=== PATIENT | male | born 1970 | race Caucasian/White ===

== ENCOUNTER 2016-08-31 17:33 | Inpatient (IN) | payer MEDICAID, OTHER ==
[2016-08-31 18:32] LABS: Hematocrit 46 % (42-52); Hemoglobin 15.4 g/dl (14.0-18.0); Mean Corpuscular HGB Conc 34 g/dl (31-36); Mean Corpuscular Hemoglobin 35 pg (27-31); Mean Corpuscular Volume 103 fL (80-94); Mean Platelet Volume 8 um3 (7.4-10.4); Red Blood Count 4.45 10^6/ul (4.0-5.4); Red Cell Distribution Width 13 % (10.5-15); White Blood Count 8.6 10^3/ul (3.5-10.8)
[2016-08-31 18:41] LABS: Add Diff/Slide Review? Slide Review Added; Comments Flag Yes
[2016-08-31 18:46] LABS: ALT 94 U/L (7-52); AST 90 U/L (13-39); Alkaline Phosphatase 51 U/L (34-104); Anion Gap 7 mmol/L (2-11); BUN/Creatinine Ratio 14.5 (8-20); Blood Urea Nitrogen 10 mg/dL (6-24); CO2 Carbon Dioxide 23 mmol/L (22-32); Calcium 8.8 mg/dL (8.6-10.3); Chloride 101 mmol/L (101-111); EGFR African American 157.4 (>60); EGFR Non-African American 122.4 (>60); Globulin 3.1 g/dL (2-4); Glucose 338 mg/dL (70-100); Sodium 131 mmol/L (133-145); Total Protein 7.1 g/dL (6.4-8.9)
[2016-08-31 18:56] LABS: Acetaminophen < 15 mcg/mL; Alcohol < 10 mg/dL (<10); Salicylate < 2.50 mg/dL (<30)
[2016-08-31 19:04] LABS: TSH (Thyroid Stimulating Horm) 4.94 mcIU/mL (0.34-5.60)
[2016-08-31 19:09] LABS: Add Path Review? YES; Eosinophils % 3 % (0-6); Immature Granulocytes 1 % (0-9); Neutrophil % 66 % (38-83); RBC Morphology Normal (Normal); Reactive Lymph % 2 % (0-6)
[2016-08-31] MEDS ORDERED: metFORMIN* 500 MG TAB PO ONE (19:24)
[2016-08-31 19:43] LABS: Urine Bilirubin Negative (Negative); Urine Glucose 3+(>=500 mg/dL) (Negative); Urine Nitrite Negative (Negative)
--- NOTE | 2016-08-31 20:56 | ED ---
I, Oh,Soohtommy, scribed for Michael Hudson MD on 08/31/16 at 1835 . Psychiatric Complaint - HPI Summary HPI Summary: This 46 y/o male presents to ED for acute on chronic depression and SI with plan involving "thick blade" since today. Pt states he has been noncompliant to all his medications since 2 weeks ago. Positive sleep disturbance, appetite change, and EtOH use 2 days ago. PMHx does include known depression, DM, OA, HLD , and schizoaffective disorder. Positive hx of prior psych admission due to SI. 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 He is currently unemployed and living alone. FHx is positive to EtOH dependence to biological parents. - History Of Current Complaint Chief Complaint: EDMentalHealth Time Seen by Provider: 08/31/16 18:06 Hx Obtained From: Patient, Medical Records Onset/Duration: Sudden Onset Timing: Constant Severity Initially: Moderate Severity Currently: Moderate Character: Depressed Aggravating Factor(s): Nothing Alleviating Factor(s): Nothing Associated Signs And Symptoms: Positive: Sleep Disturbance, Appetite Change Has Suicidal: Reports: Thoughts, With A Plan - involving "thick blade" - Allergies/Home Medications Allergies/Adverse Reactions: Allergies Allergy/AdvReac Type Severity Reaction Status Date / Time No Known Allergies Allergy Verified 07/26/15 13:50 PMH/Surg Hx/FS Hx/Imm Hx Endocrine/Hematology History: Reports: Hx Diabetes - takes Metformin, but he has not been taking it. , Hx Thyroid Disease - hypothyroidism, but he is not taking his medications. Denies: Hx Anticoagulant Therapy Cardiovascular History: Reports: Hx Hypertension - He states that he is not taking his hypertension medication. Denies: Hx Congestive Heart Failure, Hx Deep Vein Thrombosis, Hx Myocardial Infarction, Hx Pacemaker/ICD Respiratory History: Reports: Hx Asthma - He used inhalers when he had bronchitis. , Hx Sleep Apnea, Other Respiratory Problems/Disorders - Bronchitis in Mar 2015 Denies: Hx Chronic Obstructive Pulmonary Disease (COPD), Hx Lung Cancer, Hx Pneumonia, Hx Pulmonary Embolism GI History: Denies: Hx Gall Bladder Disease, Hx Gastrointestinal Bleed, Hx Ulcer, Hx Urosepsis History: Denies: Hx Kidney Stones, Hx Renal Disease Musculoskeletal History: Reports: Hx Arthritis - Active in knee, Other Musculoskeletal History - bilateral knee pain Sensory History: Reports: Hx Contacts or Glasses Opthamlomology History: Reports: Hx Contacts or Glasses Neurological History: Denies: Hx Dementia, Hx Migraine, Hx Seizures, Hx Transient Ischemic Attacks (TIA) Psychiatric History: Reports: Hx Anxiety, Hx Depression, Hx Inpatient Treatment , Hx Community Mental Health [facility] - [facility], Hx of Violent Episodes Against Others, Hx Substance Abuse, Other Psychiatric Issues/Disorders - schizoaffective disorder Denies: Hx Attention Deficit Hyperactivity Disorder, Hx Eating Disorder, Hx Panic Disorder, Hx Post Traumatic Stress Disorder, Hx Schizophrenia, Hx Bipolar Disorder, Hx Suicide Attempt - Surgical History Surgery Procedure, Year, and Place: fistula removed at [facility] in 2006 Hx Anesthesia Reactions: No Infectious Disease History: No Infectious Disease History: Denies: Hx Clostridium Difficile, Hx Hepatitis, Hx Human Immunodeficiency Virus (HIV), Hx of Known/Suspected MRSA, Hx Shingles, Hx Tuberculosis, Hx Known/ Suspected VRE, Hx Known/Suspected VRSA, History Other Infectious Disease, Traveled Outside the [place] in Last 30 Days - Family History Known Family History: Positive: Other - Positive EtOH dependence to biological parents - Social History Alcohol Use: Occasionally Alcohol Amount: 350 ml of vodka - states he quit Hx Substance Use: Yes Substance Use Type: Reports: Marijuana Substance Use Comment - Amount & Last Used: Occasionally- 10 days ag = states no more Hx Tobacco Use: Yes Smoking Status (MU): Former Smoker Type: Cigarettes, Cigars Amount Used/How Often: quit Length of Time of Smoking/Using Tobacco: 1/2 PPD Have You Smoked in the Last Year: Yes Review of Systems Negative: Fever Positive: Depressed, Other - Positive SI with plan involving "thick blade" All Other Systems Reviewed And Are Negative: Yes Physical Exam - Summary Physical Exam Summary: The patient is well-nourished in no acute distress and in no acute pain. The skin is warm and dry and skin color reflects adequate perfusion. HEENT: The head is normocephalic and atraumatic. The pupils are equal and reactive. The conjunctivae are clear and without drainage. Nares are patent and without drainage. Neck is supple with full range of motion and non-tender. There are no carotid bruits. There is no neck vein distension. Respiratory: Chest is non-tender. Lungs are clear to auscultation and breath sounds are symmetrical and equal. Cardiovascular: Heart is regular rate and rhythm. There is no murmur or rub auscultated. There is no peripheral edema and pulses are symmetrical and equal. Abdomen: The abdomen is obese. There are normal bowel sounds heard in all four quadrants and there is no organomegaly palpated. Musculoskeletal: There is no back pain noted. Extremities are non-tender with full range of motion. There is good capillary refill. There is no peripheral edema or calf tenderness elicited. Neurological: Patient is alert and oriented to person, place and time. The patient has symmetrical motor strength in all four extremities. Cranial nerves are grossly intact. Deep tendon reflexes are symmetrical and equal in all four extremities. Psychiatric: The patient has an appropriate affect and does not exhibit any anxiety or depression. Triage Information Reviewed: Yes Vital Signs On Initial Exam: Initial Vitals Temp Pulse Resp BP Pulse Ox 97.9 F 86 20 144/76 98 08/31/16 17:41 08/31/16 17:41 08/31/16 17:41 08/31/16 17:41 08/31/16 17:41 Vital Signs Reviewed: Yes Diagnostics - Vital Signs Vital Signs Temp Pulse Resp BP Pulse Ox 08/31/16 17:41 97.9 F 86 20 144/76 98 - Laboratory Lab Results: Lab Results 08/31/16 08/31/16 08/31/16 Range/Units 18:24 18:24 19:30 WBC 8.6 (3.5-10.8) 10^3/ul RBC 4.45 (4.0-5.4) 10^6/ul Hgb 15.4 (14.0-18.0) g/dl Hct 46 (42-52) % MCV 103 H (80-94) fL MCH 35 H (27-31) pg MCHC 34 (31-36) g/dl RDW 13 (10.5-15) % Plt Count 223 (150-450) 10^3/ul MPV 8 (7.4-10.4) um3 Immature Gran % (Auto) 1 (0-9) % Neut % (Auto) 71.5 (38-83) % Lymph % (Auto) 8.6 L (25-47) % [place] % (Auto) 5.2 (1-9) % Eos % (Auto) 2.6 (0-6) % Baso % (Auto) 12.1 H (0-2) % Absolute Neuts (auto) 6.2 (1.5-7.7) 10^3/ul Absolute Lymphs (auto) 0.7 L (1.0-4.8) 10^3/ul Absolute Monos (auto) 0.4 (0-0.8) 10^3/ul Absolute Eos (auto) 0.2 (0-0.6) 10^3/ul Absolute Basos (auto) 1.0 H (0-0.2) 10^3/ul Absolute Nucleated RBC 0 10^3/ul Neutrophils % 66 (38-83) % Band Neutrophils % 1 (0-8) % Lymphocytes % 23 L (25-47) % Reactive Lymphs % 2 (0-6) % Monocytes % 4 (0-13) % Eosinophils % 3 (0-6) % Basophils % 1 (0-2) % Nucleated RBC % 0 Normal RBC Morphology Normal (Normal) Hem Pathologist Commnt Pending Sodium 131 L (133-145) mmol/L Potassium 4.0 (3.5-5.0) mmol/L Chloride 101 (101-111) mmol/L Carbon Dioxide 23 (22-32) mmol/L Anion Gap 7 (2-11) mmol/L BUN 10 (6-24) mg/dL Creatinine 0.69 (0.67-1.17) mg/dL Est GFR ( Amer) 157.4 (>60) Est GFR (Non-Af Amer) 122.4 (>60) BUN/Creatinine Ratio 14.5 (8-20) Glucose 338 H (70-100) mg/dL Calcium 8.8 (8.6-10.3) mg/dL Total Bilirubin 1.30 H (0.2-1.0) mg/dL AST 90 H (13-39) U/L ALT 94 H (7-52) U/L Alkaline Phosphatase 51 (34-104) U/L Total Protein 7.1 (6.4-8.9) g/dL Albumin 4.0 (3.2-5.2) g/dL Globulin 3.1 (2-4) g/dL Albumin/Globulin Ratio 1.3 (1-3) TSH 4.94 (0.34-5.60) mcIU/mL Urine Color Yellow Urine Appearance Clear Urine pH 5.0 (5-9) Ur Specific [place] 1.037 H (1.010-1.030) Urine Protein Negative (Negative) Urine Ketones Trace H (Negative) Urine Blood Negative (Negative) Urine Nitrate Negative (Negative) Urine Bilirubin Negative (Negative) Urine Urobilinogen Negative (Negative) Ur Leukocyte Esterase Negative (Negative) Urine Glucose 3+(>=500 mg/dl) H (Negative) Salicylates < 2.50 (<30) mg/dL Acetaminophen < 15 mcg/mL Serum Alcohol < 10 (<10) mg/dL Result Diagrams: 08/31/16 18:24 08/31/16 18:24 Lab Statement: Any lab studies that have been ordered have been reviewed, and results considered in the medical decision making process. Course/Dx - Course Assessment/Plan: This 46 y/o male presents to ED for acute on chronic depression and SI with plan. Pt reports his plan involves "thick knife". He also reports that he has not been taking his metformin for last 2 weeks. Metformin is given to symptomatically control his elevated blood glucose. Pt is medically cleared for mental health evaluation. Pt is evaluated by [facility] and is accepted for voluntary admission, with paperwork signed by Dr. Hudson. - Differential Dx/Clinical Impression Differential Diagnosis/HQI/PQRI: Positive: Depression, Suicidal Ideation, Other - diabetes mellitus type II, non-compliance Provider Diagnosis: Depression, Suicidal ideation - Physician Notifications Patient Is Medically Stable For: Psych Evaluation - at 1924 PM. Pt reports that he has not been taking his metformin for last 2 weeks. Metformin is given to symptomatically control his elevated blood glucose. Discharge - Discharge Plan Condition: Stable Disposition: PSYCHIATRIC FACILITY[place] [place] Referrals: Margarita Hreman MD [Primary Care Provider] - The documentation as recorded by the Malik villatoro Soohyun accurately reflects the service I personally performed and the decisions made by , Michael Hudson MD.
[2016-08-31] MEDS ORDERED: chlorproMAZINE TAB* 50 MG PO ONE (22:00)
[2016-08-31] MEDS ORDERED: diPHENhydraMINE PO* 50 MG PO ONE (22:00)
[2016-09-01] MEDS ORDERED: Acetaminophen TAB* 325 MG PO PRN (00:20)
[2016-09-01] MEDS ORDERED: Al Hydrox/Mg Hydrox/Simet LIQ* 30 ML UDC PO PRN (00:20)
[2016-09-01] MEDS: Vitamin THERAPEUTIC TAB PO SCH ×2 (09:43→16:04)
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
[2016-09-01] MEDS: Atorvastatin* 10 MG TAB PO SCH (16:00)
[2016-09-01] MEDS: metFORMIN* 500 MG TAB PO SCH (16:00)
[2016-09-01] MEDS: Sertraline* 100 MG TAB PO SCH (16:00)
[2016-09-01] MEDS: ARIPiprazole TAB* 5 MG PO SCH (20:16)
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
[2016-09-02] MEDS: Vitamin THERAPEUTIC TAB PO SCH (07:51)
[2016-09-02] MEDS: metFORMIN* 500 MG TAB PO SCH ×2 (07:51→16:50)
[2016-09-02] MEDS: Sertraline* 100 MG TAB PO SCH (07:52)
[2016-09-02] MEDS: Levothyroxine TAB* 25 MCG TAB PO SCH (07:52)
[2016-09-02] MEDS: Lisinopril TAB* 10 MG PO SCH (07:52)
[2016-09-02 07:53] LABS: HDL Cholesterol 36.6 mg/dL
--- NOTE | 2016-09-02 12:50 | PN ---
Subjective - Subjective Subjective: Niall endorses restful sleep last evening, and improving mood and level of energy today, he complains of stomachaches after restarting prescribed medications. He perseveres about wanting to remain admitted until he feels stable. He denies SI/HI or A/VH or delusions. Labs were consistent with previous non-adherence with prescribed medications. He requests STIs testing. He denies withdrawal symptoms from alcohol. Per staff, he is visible in the milieu and adherent to unit's routines. Objective - Appearance Appearance: Well Developed/Nourished Dysmorphic Features: No Hygiene: Normal Grooming: Well Kept - Behavior Psychomotor Activities: Normal Exhibits Abnormal Movement: No - Attitude and Relatedness Attitude and Relatedness: Needy Eye Contact: Fair - Speech Quality: Unpressured Latencies: Normal Quantity: Appropriate - Mood Patient's Decription of Mood: better - Affect Observed Affect: Constricted Affect Consistent with: Dysphoria - Thought Process Patient's Thought Process: Coherent, Goal Directed Thought Content: No Passive Wish, No Suicidal Planning, No Homicidal Ideation, No Paranoid Ideation - Sensorium Experiencing Hallucinations: No, Sensorium is Clear - Level of Consciousness Level of Consciousness: Alert Orientation: Yes Intact - Impulse Control Impulse Control: Intact - Insight and Judgement Insight and Judgement: Poor - Group Participation Particating in Group Activities: Yes - Medication Management Medication Management Adherence: Yes Assessment - Assessment Inpatient DSM-IV Dx: Alcohol deprendence; Schizoafective disorder, depressed type; Cluster B traits. Clinical Impression: 46yo male with history hospitalizations, poor adherence to outpatient psychiatric and substance abuse treatment, who was self-referred and requested voluntary inpatient psychiatric admission because of worsening mood and psychotic symptoms in the setting of relapse on alcohol and in the context of psychosocial stresses. Stabilizing in this structured setting, tolerating the restarting of his meds, denying suicidality. Plan - Plan Treatment Plan: Name: NIALL HAYES Birthdate: 1970 [id number] Continued Medication Management: Continue Outpt Medication Medications: Current Medications Acetaminophen (Tylenol Tab*) 650 mg PO Q4H PRN PRN Reason: PAIN or TEMP > 101 F Al Hydrox/Mg Hydrox/Simethicone (Maalox Plus*) 30 ml PO Q4H PRN PRN Reason: INDIGESTION Aripiprazole (Abilify Tab*) 5 mg PO BEDTIME XANDER Last Admin: 09/01/16 20:16 Dose: 5 mg Atorvastatin Calcium (Lipitor*) 10 mg PO 1700 [facility] Last Admin: 09/01/16 16:00 Dose: 10 mg Levothyroxine Sodium (Synthroid Tab*) 25 mcg PO DAILY@0600 [facility] Last Admin: 09/02/16 07:52 Dose: 25 mcg Lisinopril (Prinivil Tab*) 10 mg PO DAILY [facility] Last Admin: 09/02/16 07:52 Dose: 10 mg Metformin HCl (Glucophage*) 500 mg PO 0800,1700 [facility] Last Admin: 09/02/16 07:51 Dose: 500 mg Multivitamins (Theragran Tab*) 1 tab PO DAILY [facility] Last Admin: 09/02/16 07:51 Dose: 1 tab Sertraline HCl (Zoloft*) 100 mg PO DAILY [facility] Last Admin: 09/02/16 07:52 Dose: 100 mg - Discharge Plan Discharge Plan: Outpatient Follow Up Outpatient Program: [facility]
--- NOTE | 2016-09-02 13:53 | PN ---
M[facility]: Group Therapy Note - Service Type Service Type: [id number] Group Psychotherapy - Cognitive Behavioral Group Therapy ( CBT):Patient was attentive and participatory in CBT programming this morning, and remained in good behavioral control. Patient expressed positive insights regarding relevant treatment interventions and goals. Sheng spoke at length about his goal of losing weight, and requested a consultation with the nutrition department. He presented with good affect and interacted well with staff and peers.
[2016-09-02] MEDS: Atorvastatin* 10 MG TAB PO SCH (16:50)
[2016-09-02] MEDS: ARIPiprazole TAB* 5 MG PO SCH (20:31)
[2016-09-03] MEDS: Levothyroxine TAB* 25 MCG TAB PO SCH (06:05)
[2016-09-03] MEDS: Vitamin THERAPEUTIC TAB PO SCH (09:29)
[2016-09-03] MEDS: Lisinopril TAB* 10 MG PO SCH (09:29)
[2016-09-03] MEDS: Sertraline* 100 MG TAB PO SCH (09:29)
[2016-09-03] MEDS: metFORMIN* 500 MG TAB PO SCH ×2 (09:29→16:31)
[2016-09-03 10:48] LABS: Syphilis Index < 0.1 Index
--- NOTE | 2016-09-03 13:15 | PN ---
Subjective - Subjective Subjective: He endorses sustained improvement in mood despite poor sleep. He denies suicidal ideation and he contracts for safety. He denies side effects from newly restarted meds or urges for sib. He asserts having provide a urine simple earlier today for DS3 and STI testing. He is interested in triailing Trazodone for sleep after hearing of the indications, risks, benefits and alternatives. Per staff, he remains adherent to unit's routines. He tolerated my telling him that we are tentatively looking for a Thursday discharge as it would be difficult to continue justify this level of care past that. Objective - Appearance Appearance: Healthy Appearing Dysmorphic Features: No Hygiene: Normal Grooming: Well Kept - Behavior Motor Skills: Fine Motor Skills: Normal, Gross Motor Skills: Normal, Gait: Normal Psychomotor Activities: Normal Exhibits Abnormal Movement: No - Attitude and Relatedness Attitude and Relatedness: Cooperative Eye Contact: Fair - Speech Quality: Unpressured Latencies: Normal Quantity: Appropriate - Mood Patient's Decription of Mood: "Okay" - Affect Observed Affect: Fair Affect Consistent with: Euthymia - Thought Process Patient's Thought Process: Coherent, Goal Directed Thought Content: No Passive Wish, No Suicidal Planning, No Homicidal Ideation, No Paranoid Ideation - Sensorium Delusions: No Experiencing Hallucinations: No, Sensorium is Clear - Level of Consciousness Level of Consciousness: Alert Orientation: Yes Intact - Lab Results Lab Results: Laboratory Tests 09/01/16 09/02/16 09/02/16 18:10 06:37 06:37 POC Glucose (mg/dL) Hemoglobin A1c 6.6 H Triglycerides 113 Cholesterol 191 LDL Cholesterol 132 HDL Cholesterol 36.6 Syphilis IgG Antibody Nonreactive 09/02/16 07:40 POC Glucose (mg/dL) 168 H Hemoglobin A1c Triglycerides Cholesterol LDL Cholesterol HDL Cholesterol Syphilis IgG Antibody Assessment - Assessment Inpatient DSM-IV Dx: Alcohol deprendence; Schizoafective disorder, depressed type; Cluster B traits. Clinical Impression: 46yo male with history hospitalizations, poor adherence to outpatient psychiatric and substance abuse treatment, who was self-referred and requested voluntary inpatient psychiatric admission because of worsening mood and psychotic symptoms in the setting of relapse on alcohol and in the context of psychosocial stresses. Stabilizing in this structured setting, tolerating the restarting of his meds, denying suicidality. Plan - Treatment Plan Medications: Current Medications Acetaminophen (Tylenol Tab*) 650 mg PO Q4H PRN PRN Reason: PAIN or TEMP > 101 F Al Hydrox/Mg Hydrox/Simethicone (Maalox Plus*) 30 ml PO Q4H PRN PRN Reason: INDIGESTION Aripiprazole (Abilify Tab*) 5 mg PO BEDTIME [facility] Last Admin: 09/02/16 20:31 Dose: 5 mg Atorvastatin Calcium (Lipitor*) 10 mg PO 1700 [facility] Last Admin: 09/02/16 16:50 Dose: 10 mg Levothyroxine Sodium (Synthroid Tab*) 25 mcg PO DAILY@0600 [facility] Last Admin: 09/03/16 06:05 Dose: 25 mcg Lisinopril (Prinivil Tab*) 10 mg PO DAILY [facility] Last Admin: 09/03/16 09:29 Dose: 10 mg Metformin HCl (Glucophage*) 500 mg PO 0800,1700 [facility] Last Admin: 09/03/16 09:29 Dose: 500 mg Multivitamins (Theragran Tab*) 1 tab PO DAILY [facility] Last Admin: 09/03/16 09:29 Dose: 1 tab Sertraline HCl (Zoloft*) 100 mg PO DAILY [facility] Last Admin: 09/03/16 09:29 Dose: 100 mg
--- NOTE | 2016-09-03 13:18 | PN ---
Subjective - Subjective Subjective: He endorses sustained improvement in mood despite poor sleep. He denies suicidal ideation and he contracts for safety. He denies side effects from newly restarted meds or urges for sib. He asserts having provide a urine simple earlier today for DS3 and STI testing. He is interested in triailing Trazodone for sleep after hearing of the indications, risks, benefits and alternatives. Per staff, he remains adherent to unit's routines. He tolerated my telling him that we are tentatively looking for a Thursday discharge as it would be difficult to continue justify this level of care past that. Objective - Appearance Appearance: Obese Dysmorphic Features: No Hygiene: Normal Grooming: Well Kept - Behavior Psychomotor Activities: Normal Exhibits Abnormal Movement: No - Attitude and Relatedness Attitude and Relatedness: Cooperative Eye Contact: Fair - Speech Quality: Unpressured Latencies: Normal Quantity: Appropriate - Mood Patient's Decription of Mood: "Okay" - Affect Observed Affect: Fair Affect Consistent with: Euthymia - Thought Process Patient's Thought Process: Coherent, Goal Directed Thought Content: No Passive Wish, No Suicidal Planning, No Homicidal Ideation, No Paranoid Ideation - Sensorium Experiencing Hallucinations: No, Sensorium is Clear - Level of Consciousness Level of Consciousness: Alert Orientation: Yes Intact - Impulse Control Impulse Control: Intact - Insight and Judgement Insight and Judgement: Poor - Group Participation Particating in Group Activities: Yes - Medication Management Medication Management Adherence: Yes Assessment - Assessment Merits Inpatient Hospitalization: Consolidate Improvements, For Discharge Planning Inpatient DSM-IV Dx: Alcohol deprendence; Schizoafective disorder, depressed type; Cluster B traits. Clinical Impression: 46yo male with history hospitalizations, poor adherence to outpatient psychiatric and substance abuse treatment, who was self-referred and requested voluntary inpatient psychiatric admission because of worsening mood and psychotic symptoms in the setting of relapse on alcohol and in the context of psychosocial stresses. Stabilizing in this structured setting, tolerating the restarting of his meds, denying suicidality. Plan - Plan Treatment Plan: Name: NIALL HAYES Birthdate: 1970 [id number] Continued Medication Management: Continue Outpt Medication Medications: Current Medications Acetaminophen (Tylenol Tab*) 650 mg PO Q4H PRN PRN Reason: PAIN or TEMP > 101 F Al Hydrox/Mg Hydrox/Simethicone (Maalox Plus*) 30 ml PO Q4H PRN PRN Reason: INDIGESTION Aripiprazole (Abilify Tab*) 5 mg PO BEDTIME [facility] Last Admin: 09/02/16 20:31 Dose: 5 mg Atorvastatin Calcium (Lipitor*) 10 mg PO 1700 [facility] Last Admin: 09/02/16 16:50 Dose: 10 mg Levothyroxine Sodium (Synthroid Tab*) 25 mcg PO DAILY@0600 [facility] Last Admin: 09/03/16 06:05 Dose: 25 mcg Lisinopril (Prinivil Tab*) 10 mg PO DAILY [facility] Last Admin: 09/03/16 09:29 Dose: 10 mg Metformin HCl (Glucophage*) 500 mg PO 0800,1700 [facility] Last Admin: 09/03/16 09:29 Dose: 500 mg Multivitamins (Theragran Tab*) 1 tab PO DAILY [facility] Last Admin: 09/03/16 09:29 Dose: 1 tab Sertraline HCl (Zoloft*) 100 mg PO DAILY [facility] Last Admin: 09/03/16 09:29 Dose: 100 mg - Discharge Plan Discharge Plan: Outpatient Follow Up Outpatient Program: [facility]
--- NOTE | 2016-09-03 13:35 | PN ---
MHU: Group Therapy Note - Service Type Service Type: [id number] Group Psychotherapy - Cognitive Behavioral Group Therapy ( CBT):Patient was attentive and participatory in CBT programming this morning, and remained in good behavioral control. Patient expressed positive insights regarding relevant treatment interventions and goals.
[2016-09-03] MEDS: Atorvastatin* 10 MG TAB PO SCH (16:31)
[2016-09-03] MEDS: ARIPiprazole TAB* 5 MG PO SCH (20:44)
[2016-09-03] MEDS: traZODone TAB* 50 MG TAB PO SCH (22:16)
[2016-09-04] MEDS: Vitamin THERAPEUTIC TAB PO SCH (08:30)
[2016-09-04] MEDS: Levothyroxine TAB* 25 MCG TAB PO SCH (08:30)
[2016-09-04] MEDS: Sertraline* 100 MG TAB PO SCH (08:30)
[2016-09-04] MEDS: Lisinopril TAB* 10 MG PO SCH (08:30)
[2016-09-04] MEDS: metFORMIN* 500 MG TAB PO SCH ×2 (08:30→16:28)
--- NOTE | 2016-09-04 11:25 | PN ---
MHU: Group Therapy Note - Service Type Service Type: [id number] Group Psychotherapy - Cognitive Behavioral Group Therapy ( CBT):Patient was attentive and participatory in CBT programming this morning, and remained in good behavioral control. Patient expressed positive insights regarding relevant treatment interventions and goals. He is looking forward to discharge tomorrow, and has been able to follow through with request for nuitritional consultation.
[2016-09-04] MEDS: Atorvastatin* 10 MG TAB PO SCH (16:29)
--- NOTE | 2016-09-04 17:55 | PN ---
Subjective - Subjective Subjective: Niall is visible in the milieu, he is bright upon approach, endorses restful sleep, improving mood and level of energy, he affirms feeling safe and happy to be alive, he discusses plan to joining [employer] and to eat healthier to lose weight. He continues to decline recommendation to attend AA meetings, feels he will have the support needed through [facility] and the [facility]. He denies side effects from prescribed meds. He looks forward to discharge in AM, he is thankful for the help he is getting. We discussed his labs results (high fasting glucose, abnormal lipid panel, slightly elevated liver transaminases and negative HIV, Syphilis, Chlamydia and gonorrhea testing). Objective - Appearance Appearance: Obese - Behavior Psychomotor Activities: Normal Exhibits Abnormal Movement: No - Attitude and Relatedness Attitude and Relatedness: Cooperative Eye Contact: Good - Speech Quality: Unpressured Latencies: Normal Quantity: Appropriate - Mood Patient's Decription of Mood: better - Affect Observed Affect: Fair Affect Consistent with: Euthymia - Thought Process Patient's Thought Process: Coherent, Goal Directed Thought Content: No Passive Wish, No Suicidal Planning, No Homicidal Ideation, No Paranoid Ideation - Sensorium Experiencing Hallucinations: No, Sensorium is Clear - Level of Consciousness Level of Consciousness: Alert Orientation: Yes Intact - Impulse Control Impulse Control: Intact - Insight and Judgement Insight and Judgement: Fair - Group Participation Particating in Group Activities: Yes - Medication Management Medication Management Adherence: Yes Assessment - Assessment Merits Inpatient Hospitalization: For Discharge Planning Inpatient DSM-IV Dx: Alcohol deprendence; Schizoafective disorder, depressed type; Cluster B traits. Clinical Impression: 46yo male with history hospitalizations, poor adherence to outpatient psychiatric and substance abuse treatment, who was self-referred and requested voluntary inpatient psychiatric admission because of worsening mood and psychotic symptoms in the setting of relapse on alcohol and in the context of psychosocial stresses. Appears to be stabilizing in this structured setting, tolerating the restarting of his meds, denying suicidality. He feels reading for discharge in AM. Plan - Plan Treatment Plan: Name: NIALL HAYES Birthdate: 1970 [id number] Continued Medication Management: Continue Outpt Medication Medications: Current Medications Acetaminophen (Tylenol Tab*) 650 mg PO Q4H PRN PRN Reason: PAIN or TEMP > 101 F Al Hydrox/Mg Hydrox/Simethicone (Maalox Plus*) 30 ml PO Q4H PRN PRN Reason: INDIGESTION Aripiprazole (Abilify Tab*) 5 mg PO BEDTIME [facility] Last Admin: 09/03/16 20:44 Dose: 5 mg Atorvastatin Calcium (Lipitor*) 10 mg PO 1700 [facility] Last Admin: 09/04/16 16:29 Dose: 10 mg Levothyroxine Sodium (Synthroid Tab*) 25 mcg PO DAILY@0600 [facility] Last Admin: 09/04/16 08:30 Dose: 25 mcg Lisinopril (Prinivil Tab*) 10 mg PO DAILY [facility] Last Admin: 09/04/16 08:30 Dose: 10 mg Metformin HCl (Glucophage*) 500 mg PO 0800,1700 [facility] Last Admin: 09/04/16 16:28 Dose: 500 mg Multivitamins (Theragran Tab*) 1 tab PO DAILY [facility] Last Admin: 09/04/16 08:30 Dose: 1 tab Sertraline HCl (Zoloft*) 100 mg PO DAILY [facility] Last Admin: 09/04/16 08:30 Dose: 100 mg Trazodone HCl (Desyrel Tab*) 50 mg PO BEDTIME [facility] Last Admin: 09/03/16 22:16 Dose: 50 mg - Discharge Plan Discharge Plan: Outpatient Follow Up Outpatient Program: [facility]
[2016-09-04] MEDS: ARIPiprazole TAB* 5 MG PO SCH (21:44)
[2016-09-04] MEDS: traZODone TAB* 50 MG TAB PO SCH (21:44)
[2016-09-05 07:45] VITALS: BP 159/88
[2016-09-05] MEDS: metFORMIN* 500 MG TAB PO SCH (09:10)
[2016-09-05] MEDS: Sertraline* 100 MG TAB PO SCH (09:10)
[2016-09-05] MEDS: Lisinopril TAB* 10 MG PO SCH (09:10)
[2016-09-05] MEDS: Levothyroxine TAB* 25 MCG TAB PO SCH (09:10)
[2016-09-05] MEDS: Vitamin THERAPEUTIC TAB PO SCH (09:10)
--- NOTE | 2016-09-05 10:55 | PN ---
Subjective - Subjective Subjective: Elias maintains readiness for discharge. He affirms she feels safe and good about being alive. She denies emotional pain or unmanageable anxiety. He avidly denies having thoughts of suicide or urges to self-harm. He denies problems with medications, and says she does not see obstacles to routine care / therapy , or emergency help if needed again. Objective - Appearance Appearance: Obese Dysmorphic Features: No Hygiene: Normal Grooming: Well Kept - Behavior Motor Skills: Fine Motor Skills: Normal, Gross Motor Skills: Normal, Gait: Normal Psychomotor Activities: Normal Exhibits Abnormal Movement: No - Attitude and Relatedness Attitude and Relatedness: Cooperative Eye Contact: Fair - Speech Quality: Unpressured Latencies: Normal Quantity: Appropriate - Mood Patient's Decription of Mood: "Okay" - Affect Observed Affect: Fair Affect Consistent with: Euthymia - Thought Process Patient's Thought Process: Coherent, Goal Directed Thought Content: No Passive Wish, No Suicidal Planning, No Homicidal Ideation, No Paranoid Ideation - Sensorium Delusions: No Experiencing Hallucinations: No, Sensorium is Clear - Level of Consciousness Level of Consciousness: Alert Orientation: Yes Intact - Impulse Control Impulse Control: Intact - Insight and Judgement Insight and Judgement: Fair - Lab Results Lab Results: Laboratory Tests 09/01/16 09/02/16 09/02/16 18:10 06:37 06:37 POC Glucose (mg/dL) Hemoglobin A1c 6.6 H Triglycerides 113 Cholesterol 191 LDL Cholesterol 132 HDL Cholesterol 36.6 Syphilis IgG Antibody Nonreactive C.trachomatis (Amp Det) HIV 1&2 Antibody N.gonorrhoeae (Amp Det) 09/02/16 09/02/16 09/03/16 06:37 07:40 11:26 POC Glucose (mg/dL) 168 H Hemoglobin A1c Triglycerides Cholesterol LDL Cholesterol HDL Cholesterol Syphilis IgG Antibody C.trachomatis (Amp Det) Negative HIV 1&2 Antibody Nonreactive N.gonorrhoeae (Amp Det) Negative Assessment - Assessment Inpatient DSM-IV Dx: Alcohol deprendence; Schizoafective disorder, depressed type; Cluster B traits. Clinical Impression: 46yo male with history hospitalizations, poor adherence to outpatient psychiatric and substance abuse treatment, who was self-referred and requested voluntary inpatient psychiatric admission because of worsening mood and psychotic symptoms in the setting of relapse on alcohol and in the context of psychosocial stresses. Clear for release: 09/05/16 Elias stabilized here behaviorally and improved clinically. He was safe on checks, adherent with routines, and free of active suicidal ideation. He was well engaged in inpatient treatment and discharge processes. Medication management restarted previous trials of Sertraline and Aripiprazole mel ortiz mdications for diabetes, hypertension, hypothyroidism, obesity and hypercholesteraolemia. He requested and obtained STDs testing that were all negative. We discussed his abnormal fasting blood glucose, lipid panel and liver transaminases. He contracted to following up with his primary care provider, Dr. Margarita Herman Risk concern centers on previous non-adherence with treatment, alcohol use and suicidal behavior. Elias's profile puts him at chronic elevated risk for suicide but at this time acute risk is assessed as low - factors are is tolerable and reduced symptom burden, absence of impairment, and benign observed behavior and ideation. Relapse on alcohol or non-adherence with medical and psychiatric treatment could increase his risk again. Plan - Treatment Plan Medications: Current Medications Acetaminophen (Tylenol Tab*) 650 mg PO Q4H PRN PRN Reason: PAIN or TEMP > 101 F Al Hydrox/Mg Hydrox/Simethicone (Maalox Plus*) 30 ml PO Q4H PRN PRN Reason: INDIGESTION Aripiprazole (Abilify Tab*) 5 mg PO BEDTIME [facility] Last Admin: 09/04/16 21:44 Dose: 5 mg Atorvastatin Calcium (Lipitor*) 10 mg PO 1700 [facility] Last Admin: 09/04/16 16:29 Dose: 10 mg Levothyroxine Sodium (Synthroid Tab*) 25 mcg PO DAILY@0600 [facility] Last Admin: 09/05/16 09:10 Dose: 25 mcg Lisinopril (Prinivil Tab*) 10 mg PO DAILY [facility] Last Admin: 09/05/16 09:10 Dose: 10 mg Metformin HCl (Glucophage*) 500 mg PO 0800,1700 [facility] Last Admin: 09/05/16 09:10 Dose: 500 mg Multivitamins (Theragran Tab*) 1 tab PO DAILY [facility] Last Admin: 09/05/16 09:10 Dose: 1 tab Sertraline HCl (Zoloft*) 100 mg PO DAILY [facility] Last Admin: 09/05/16 09:10 Dose: 100 mg Trazodone HCl (Desyrel Tab*) 50 mg PO BEDTIME [facility] Last Admin: 09/04/16 21:44 Dose: 50 mg
--- NOTE | 2016-09-05 11:10 | DS ---
Subjective - Subjective Discharge Date: 09/05/16 Subjective: Elias maintains readiness for discharge. He affirms she feels safe and good about being alive. She denies emotional pain or unmanageable anxiety. He avidly denies having thoughts of suicide or urges to self-harm. He denies problems with medications, and says she does not see obstacles to routine care / therapy , or emergency help if needed again. Objective - Appearance Appearance: Obese Dysmorphic Features: No Hygiene: Normal Grooming: Well Kept - Behavior Psychomotor Activities: Normal Exhibits Abnormal Movement: No - Attitude and Relatedness Attitude and Relatedness: Cooperative Eye Contact: Fair - Speech Quality: Unpressured Latencies: Normal Quantity: Appropriate - Mood Patient's Decription of Mood: "Okay" - Affect Observed Affect: Good Affect Consistent with: Euthymia - Thought Process Patient's Thought Process: Coherent, Goal Directed Thought Content: No Passive Wish, No Suicidal Planning, No Homicidal Ideation, No Paranoid Ideation - Sensorium Experiencing Hallucinations: No, Sensorium is Clear - Level of Consciousness Level of Consciousness: Agitated Orientation: Yes Intact - Impulse Control Impulse Control: Intact - Insight and Judgement Insight and Judgement: Fair - Group Participation Particating in Group Activities: Yes Treatment Course & Assessment Clinical Course & Impression: 46yo male with history hospitalizations, poor adherence to outpatient psychiatric and substance abuse treatment, who was self-referred and requested voluntary inpatient psychiatric admission because of worsening mood and psychotic symptoms in the setting of relapse on alcohol and in the context of psychosocial stresses. Clear for release: 09/05/16 Elias stabilized here behaviorally and improved clinically. He was safe on checks, adherent with routines, and free of active suicidal ideation. He was well engaged in inpatient treatment and discharge processes. Medication management restarted previous trials of Sertraline and Aripiprazole mel ortiz mdications for diabetes, hypertension, hypothyroidism, obesity and hypercholesteraolemia. He requested and obtained STDs testing that were all negative. We discussed his abnormal fasting blood glucose, lipid panel and liver transaminases. He contracted to following up with his primary care provider, Dr. Margarita Herman Risk concern centers on previous non-adherence with treatment, alcohol use and suicidal behavior. Elias's profile puts him at chronic elevated risk for suicide but at this time acute risk is assessed as low - factors are is tolerable and reduced symptom burden, absence of impairment, and benign observed behavior and ideation. Relapse on alcohol or non-adherence with medical and psychiatric treatment could increase his risk again. Merits Inpatient Hospitalization: Yes Clear for Discharge: Adequate Clinical Respons, Acceptable Safety Profile Inpatient DSM-IV Dx: Alcohol deprendence; Schizoafective disorder, depressed type; Cluster B traits. Discharge Planning - Discharge Planning Discharge Plan: Outpatient Follow Up Outpatient Program: [facility] Recommendations for Continuing Care: Medication Management, Psychotherapy, Substance Abuse Counseling Medications: Discharge Medications Aripiprazole (Abilify Tab*) 5 mg PO BEDTIME FOR [facility]IL[facility]; Trazodone HCl (Desyrel Tab*) 50 mg PO BEDTIME FOR DEPRESSION. Discharge Planning: Prescriptions provided for discharge [X] Yes [] No Follow up care details as per social work arrangements. Patient response to discharge plan: [X] eager for discharge [] agreeable with discharge plan [] ambivalent about discharge [] disagrees with discharge today Follow-up ELIAS HAYES has been referred to the following clinics/specialists for follow-up care: [facility] [phone] You have been referred to [facility] nurse, Kinjal Neely, who will be contacting you after discharge to assist with any ongoing discharge planning needs. [facility] [address] [place] [address] You are scheduled to see Dr. Broderick for medication mgmt on , September 11 at 1:20pm.
== END 2016-09-05 10:35 | DRG 775 ==
LOC: ED 17:33 → BSU 21:26
PROVIDERS: ADMIT Psychiatry & Neurology Psychiatry; ATTEND Psychiatry & Neurology Psychiatry
DX: F10.20 Alcohol dependence, uncomplicated (principal); R45.851 Suicidal ideations; I10 Essential (primary) hypertension; E03.9 Hypothyroidism, unspecified; E78.00 Pure hypercholesterolemia, unspecified; E66.01 Morbid (severe) obesity due to excess calories; E11.9 Type 2 diabetes mellitus without complications; F25.1 Schizoaffective disorder, depressive type; J45.909 Unspecified asthma, uncomplicated; M17.9 Osteoarthritis of knee, unspecified; F12.90 Cannabis use, unspecified, uncomplicated; Z87.891 Personal history of nicotine dependence; Z91.14 Patient's other noncompliance with medication regimen; Z79.84 Long term (current) use of oral hypoglycemic drugs
CPT/HCPCS: 36415; 80053; 80061; 80320; 80329; 81003; 83036; 84443; 85025; 85060; 86592; 86703; 87491; 87591; 90853; 99222; 99231; 99238; A9270-GY; G0480

== ENCOUNTER 2017-04-24 12:29 | Inpatient (IN) | payer MEDICAID, OTHER ==
[2017-04-24] MEDS ORDERED: NS 0.9% 1000 ML* 1,000 ML IV ONE (14:26)
[2017-04-24 14:53] LABS: ABS Basophils 0.1 10^3/ul (0-0.2); ABS Eosinophils 0.2 10^3/ul (0-0.6); ABS Lymphocytes 2.4 10^3/ul (1.0-4.8); ABS Monocytes 0.5 10^3/ul (0-0.8); ABS Neutrophils 4.1 10^3/ul (1.5-7.7); ABS Nucleated RBC 0 10^3/ul; Hematocrit 43 % (42-52); Hemoglobin 15.1 g/dl (14.0-18.0); Lymphocyte % 32.9 % (25-47); Mean Corpuscular HGB Conc 36 g/dl (31-36); Mean Corpuscular Hemoglobin 35 pg (27-31); Mean Corpuscular Volume 98 fL (80-94); Mean Platelet Volume 8 um3 (7.4-10.4); Nucleated Red Blood Cells % 0.2; Platelet Count 204 10^3/ul (150-450); Red Blood Count 4.36 10^6/ul (4.0-5.4); Red Cell Distribution Width 13 % (10.5-15); White Blood Count 7.2 10^3/ul (3.5-10.8)
--- NOTE | 2017-04-24 15:12 | RAD ---
Indication: Weakness. 2 views of the chest including dual energy PA views are reviewed. Comparison is made with previous exam dated July 31, 2013. No mediastinal shift is noted. Heart is normal size and configuration. Lung ching appear clear. IMPRESSION: No active cardiopulmonary disease is noted.
[2017-04-24 15:46] LABS: EGFR Non-African American 112.4 (>60)
[2017-04-24] MEDS ORDERED: Insulin REGULAR(*) 1 UNITS UNIT IV PUSH ONE (17:15)
[2017-04-24 18:11] LABS: EGFR Non-African American 119.9 (>60)
[2017-04-24 18:21] LABS: Urine Appearance Cloudy; Urine Blood Negative (Negative); Urine Color Yellow; Urine Ketones Trace (Negative); Urine Protein Negative (Negative); Urine Urobilinogen Negative (Negative)
[2017-04-24] MEDS ORDERED: Dextrose 50% Syringe 50 ML* 25 GM/50 ML SYRINGE IV PUSH PRN (18:54)
--- NOTE | 2017-04-24 18:59 | ED ---
Jerica Lam Nilda, scribed for Ton Pena MD on 04/24/17 at 1455 . Complex/Multi-Sys Presentation - HPI Summary HPI Summary: This patient is a 47 year old M presenting to [facility] with a chief complaint of diabetic and hypertensive symptoms s/p medication noncompliance for the past 2 months. The patient rates the pain 0/10 in severity. Patient reports palpitations, SOB, CP, and dizziness yesterday. Today he states he has unwitnessed syncopal episode, increased dizziness upon awaking, fatigue, and joint pain. Patient states he stopped taking daily medications and seeing his PCP for the past 2 months due to mental health issues. Symptoms alleviated by nothing. PMHx DM, HTN, Thyroid disorder, and Sleep Apnea. - History Of Current Complaint Chief Complaint: EDDiabeticProb Time Seen by Provider: 04/24/17 14:17 Hx Obtained From: Patient Onset/Duration: Sudden Onset, Lasting Weeks Timing: Constant Location: Pain At: - joints Aggravating Factor(s): medication non-compliance Alleviating Factor(s): nothing Associated Signs And Symptoms: Positive: Other - palpitations, SOB, CP, and dizziness (yesterday). Today he states he has syncopal episode, increased dizziness, fatigue and joint pain. - Allergies/Home Medications Allergies/Adverse Reactions: Allergies Allergy/AdvReac Type Severity Reaction Status Date / Time cats Allergy Eyes Uncoded 04/24/17 12:38 Itchy/Swollen/Red/Watery Home Medications: Home Medications NK [No Home Medications Reported] 04/24/17 [History Confirmed 04/24/17] PMH/Surg Hx/FS Hx/Imm Hx Endocrine/Hematology History: Reports: Hx Diabetes, Hx Thyroid Disease Denies: Hx Anticoagulant Therapy Cardiovascular History: Reports: Hx Hypercholesterolemia, Hx Hypertension Denies: Hx Congestive Heart Failure, Hx Deep Vein Thrombosis, Hx Myocardial Infarction, Hx Pacemaker/ICD Respiratory History: Reports: Hx Asthma - He used inhalers when he had bronchitis. , Hx Sleep Apnea, Other Respiratory Problems/Disorders - Bronchitis in Mar 2015 Denies: Hx Chronic Obstructive Pulmonary Disease (COPD), Hx Lung Cancer, Hx Pneumonia, Hx Pulmonary Embolism GI History: Denies: Hx Gall Bladder Disease, Hx Gastrointestinal Bleed, Hx Ulcer, Hx Urosepsis History: Denies: Hx Kidney Stones, Hx Renal Disease Musculoskeletal History: Reports: Hx Arthritis, Other Musculoskeletal History - bilateral knee pain Sensory History: Reports: Hx Contacts or Glasses Denies: Hx Hearing Aid Opthamlomology History: Reports: Hx Contacts or Glasses Neurological History: Denies: Hx Dementia, Hx Migraine, Hx Seizures, Hx Transient Ischemic Attacks (TIA) Psychiatric History: Reports: Hx Anxiety, Hx Depression, Hx Inpatient Treatment , Hx [facility] - [facility], Hx of Violent Episodes Against Others, Hx Substance Abuse, Other Psychiatric Issues/Disorders - schizoaffective disorder Denies: Hx Attention Deficit Hyperactivity Disorder, Hx Eating Disorder, Hx Panic Disorder, Hx Post Traumatic Stress Disorder, Hx Schizophrenia, Hx Bipolar Disorder, Hx Suicide Attempt - Surgical History Surgery Procedure, Year, and Place: fistula removed at [facility] in 2006 Hx Anesthesia Reactions: No Infectious Disease History: No Infectious Disease History: Denies: Hx Clostridium Difficile, Hx Hepatitis, Hx Human Immunodeficiency Virus (HIV), Hx of Known/Suspected MRSA, Hx Shingles, Hx Tuberculosis, Hx Known/ Suspected VRE, Hx Known/Suspected VRSA, History Other Infectious Disease, Traveled Outside the [place] in Last 30 Days - Family History Known Family History: Positive: Other - Positive EtOH dependence to biological parents - Social History Alcohol Use: Rare Alcohol Amount: 350 ml of vodka - states he quit Hx Substance Use: Yes Substance Use Type: Reports: Marijuana Substance Use Comment - Amount & Last Used: Occasionally- 10 days ag = states no more Hx Tobacco Use: Yes Smoking Status (MU): Light Every Day Tobacco Smoker Type: Cigars Amount Used/How Often: States smoking "1 or 2 cigars a couple of times a week" Length of Time of Smoking/Using Tobacco: 1/2 PPD Have You Smoked in the Last Year: Yes Review of Systems Positive: Fatigue Positive: Palpitations - yesterday, Chest Pain - yesterday Positive: Shortness Of Breath - yesterday Positive: Other - joint pain Neurological: Other - dizziness Positive: Syncope All Other Systems Reviewed And Are Negative: Yes Physical Exam - Summary Physical Exam Summary: VITAL SIGNS: Reviewed. GENERAL: Patient is an obese male who is lying comfortable in the stretcher. Patient is not in any acute respiratory distress. HEAD AND FACE: No signs of trauma. No ecchymosis, hematomas or skull depressions. No sinus tenderness. EYES: PERRLA, EOMI x 2, No injected conjunctiva, no nystagmus. EARS: Hearing grossly intact. Ear canals and tympanic membranes are within normal limits. MOUTH: Oropharynx within normal limits except for dry oral mucosa. NECK: Supple, trachea is midline, no adenopathy, no JVD, no carotid bruit, no c- spine tenderness, neck with full ROM. CHEST: Symmetric, no tenderness at palpation LUNGS: Clear to auscultation bilaterally. No wheezing or crackles. CVS: Regular rate and rhythm, S1 and S2 present, no murmurs or gallops appreciated. ABDOMEN: Soft, non-tender. No signs of distention. No rebound no guarding, and no masses palpated. Bowel sounds are normal. EXTREMITIES: FROM in all major joints, no edema, no cyanosis or clubbing. NEURO: Alert and oriented x 3. No acute neurological deficits. Speech is normal and follows commands. SKIN: Dry and warm, mildly diaphoretic Triage Information Reviewed: Yes Vital Signs On Initial Exam: Initial Vitals Temp Pulse Resp BP Pulse Ox 97.5 F 74 20 152/89 92 04/24/17 12:35 04/24/17 12:35 04/24/17 12:35 04/24/17 12:35 04/24/17 12:35 Vital Signs Reviewed: Yes Diagnostics - Vital Signs Vital Signs Temp Pulse Resp BP Pulse Ox 04/24/17 12:35 97.5 F 74 20 152/89 92 - Laboratory Lab Results: Lab Results 04/24/17 04/24/17 04/24/17 Range/Units 14:33 14:33 14:33 WBC 7.2 (3.5-10.8) 10^3/ul RBC 4.36 (4.0-5.4) 10^6/ul Hgb 15.1 (14.0-18.0) g/dl Hct 43 (42-52) % MCV 98 H (80-94) fL MCH 35 H (27-31) pg MCHC 36 (31-36) g/dl RDW 13 (10.5-15) % Plt Count 204 (150-450) 10^3/ul MPV 8 (7.4-10.4) um3 Neut % (Auto) 56.6 (38-83) % Lymph % (Auto) 32.9 (25-47) % [place] % (Auto) 6.6 (0-7) % Eos % (Auto) 3.0 (0-6) % Baso % (Auto) 0.9 (0-2) % Absolute Neuts (auto) 4.1 (1.5-7.7) 10^3/ul Absolute Lymphs (auto) 2.4 (1.0-4.8) 10^3/ul Absolute Monos (auto) 0.5 (0-0.8) 10^3/ul Absolute Eos (auto) 0.2 (0-0.6) 10^3/ul Absolute Basos (auto) 0.1 (0-0.2) 10^3/ul Absolute Nucleated RBC 0 10^3/ul Nucleated RBC % 0.2 Sodium 131 L (133-145) mmol/L Potassium 4.7 (3.5-5.0) mmol/L Chloride 98 L (101-111) mmol/L Carbon Dioxide 20 L (22-32) mmol/L Anion Gap 13 H (2-11) mmol/L BUN 18 (6-24) mg/dL Creatinine 0.74 (0.67-1.17) mg/dL Est GFR ( Amer) 144.6 (>60) Est GFR (Non-Af Amer) 112.4 (>60) BUN/Creatinine Ratio 24.3 H (8-20) Glucose 273 H (70-100) mg/dL POC Glucose (mg/dL) (70-100) mg/dL Calcium 9.5 (8.6-10.3) mg/dL Total Bilirubin 1.90 H (0.2-1.0) mg/dL AST 34 (13-39) U/L ALT 54 H (7-52) U/L Alkaline Phosphatase 45 (34-104) U/L Troponin I 0.16 H* (<0.04) ng/mL C-Reactive Protein 10.34 H (< 5.00) mg/L B-Natriuretic Peptide 55 ( - 100) pg/mL Total Protein 7.4 (6.4-8.9) g/dL Albumin 4.4 (3.2-5.2) g/dL Globulin 3.0 (2-4) g/dL Albumin/Globulin Ratio 1.5 (1-3) Lipase 27 (11.0-82.0) U/L TSH Pending Urine Color Urine Appearance Urine pH (5-9) Ur Specific [place] (1.010-1.030) Urine Protein (Negative) Urine Ketones (Negative) Urine Blood (Negative) Urine Nitrate (Negative) Urine Bilirubin (Negative) Urine Urobilinogen (Negative) Ur Leukocyte Esterase (Negative) Urine WBC (Auto) (Absent) Urine RBC (Auto) (Absent) Ur Squamous Epith Cells (Absent) Urine Bacteria (Absent) Urine Glucose (Negative) Urine Ascorbic Acid 04/24/17 04/24/17 04/24/17 Range/Units 17:26 17:40 18:06 WBC (3.5-10.8) 10^3/ul RBC (4.0-5.4) 10^6/ul Hgb (14.0-18.0) g/dl Hct (42-52) % MCV (80-94) fL MCH (27-31) pg MCHC (31-36) g/dl RDW (10.5-15) % Plt Count (150-450) 10^3/ul MPV (7.4-10.4) um3 Neut % (Auto) (38-83) % Lymph % (Auto) (25-47) % [place] % (Auto) (0-7) % Eos % (Auto) (0-6) % Baso % (Auto) (0-2) % Absolute Neuts (auto) (1.5-7.7) 10^3/ul Absolute Lymphs (auto) (1.0-4.8) 10^3/ul Absolute Monos (auto) (0-0.8) 10^3/ul Absolute Eos (auto) (0-0.6) 10^3/ul Absolute Basos (auto) (0-0.2) 10^3/ul Absolute Nucleated RBC 10^3/ul Nucleated RBC % Sodium 131 L (133-145) mmol/L Potassium TNP (3.5-5.0) mmol/L Chloride 100 L (101-111) mmol/L Carbon Dioxide 22 (22-32) mmol/L Anion Gap 9 (2-11) mmol/L BUN 17 (6-24) mg/dL Creatinine 0.70 (0.67-1.17) mg/dL Est GFR ( Amer) 154.2 (>60) Est GFR (Non-Af Amer) 119.9 (>60) BUN/Creatinine Ratio 24.3 H (8-20) Glucose 211 H (70-100) mg/dL POC Glucose (mg/dL) 184 H (70-100) mg/dL Calcium 8.9 (8.6-10.3) mg/dL Total Bilirubin 1.70 H (0.2-1.0) mg/dL AST TNP (13-39) U/L ALT 51 (7-52) U/L Alkaline Phosphatase 41 (34-104) U/L Troponin I (<0.04) ng/mL C-Reactive Protein (< 5.00) mg/L B-Natriuretic Peptide ( - 100) pg/mL Total Protein 7.1 (6.4-8.9) g/dL Albumin 4.2 (3.2-5.2) g/dL Globulin 2.9 (2-4) g/dL Albumin/Globulin Ratio 1.4 (1-3) Lipase (11.0-82.0) U/L TSH Urine Color Yellow Urine Appearance Cloudy Urine pH 5.0 (5-9) Ur Specific [place] 1.030 (1.010-1.030) Urine Protein Negative (Negative) Urine Ketones Trace A (Negative) Urine Blood Negative (Negative) Urine Nitrate Negative (Negative) Urine Bilirubin Negative (Negative) Urine Urobilinogen Negative (Negative) Ur Leukocyte Esterase Negative (Negative) Urine WBC (Auto) Trace(0-5/hpf) (Absent) Urine RBC (Auto) Absent (Absent) Ur Squamous Epith Cells Present A (Absent) Urine Bacteria Absent (Absent) Urine Glucose 3+(>=500 mg/dl) A (Negative) Urine Ascorbic Acid Not Reportable Result Diagrams: 04/24/17 14:33 04/24/17 17:40 Lab Statement: Any lab studies that have been ordered have been reviewed, and results considered in the medical decision making process. - Radiology CXR Radiology Interpretation Completed By: Radiologist - CXR, per radiologist, reveals no active cardiopulmonary disease is noted. Dr. Pena has reviewed this radiology report. - EKG 1813 Cardiac Rate: Tachycardia EKG Rhythm: Sinus Tachycardia - 120 bpm EKG Interpretation: no ST elevation Re-Evaluation - Re-Evaluation First Eval Re-Evaluation Time: 18:27 Comment: Reviewed labs, imaging and plan to admit patient. Patient is agreeable to admission. Complex Multi-Symp Course/Dx Assessment/Plan: This patient is a 47 year old M presenting to [facility] with a chief complaint of diabetic and hypertensive symptoms s/p medication noncompliance for the past 2 months. The patient rates the pain 0/10 in severity. Patient reports palpitations, SOB, CP, and dizziness yesterday. Today he states he has unwitnessed syncopal episode, increased dizziness upon awaking, fatigue, and joint pain. Patient states he stopped taking daily medications and seeing his PCP for the past 2 months due to mental health issues. Symptoms alleviated by nothing. PMHx DM, HTN, Thyroid disorder, and Sleep Apnea. In the ED course an IV access was obtained. Patient was placed in a configuration management administrator. Patient was started with IV fluids. Labs without any significant abnormality except for glucose 273, anion gap 13, carbon dioxide 20. Troponin #1: 0.16. EKG shows sinus tachycardia at 120 BPM w/o ST elevations. CXR impression: No acute pathology. Head CT impression: Patient refused and Dr. Bailon agrees not to perform head CT. Patient was hydrated with IVF, and insulin for his hyperglycemia. Since patient had a syncope episode I discussed the case with Dr. Bailon who accepted the patient for admission. He is hemodynamically stable and A+O x3. - Diagnoses Provider Diagnoses: Syncopal episodes, Elevated troponin, r/o acute coronary syndrome, Hyperglycemia - Physician Notifications Discussed Care Of Patient With: Adam Bailon - Hospitalist Time Discussed With Above Provider: 18:23 Instructed by Provider To: Admit As Inpatient Discharge - Discharge Plan Condition: Stable Disposition: ADMITTED TO [facility] Referrals: Margarita Herman MD [Primary Care Provider] - The documentation as recorded by the Jerica villatoro Nilda accurately reflects the service I personally performed and the decisions made by me, Ton Pena MD.
--- NOTE | 2017-04-24 19:06 | ADMNOTE ---
Subjective Date of Service: 04/24/17 Interval History: ADMISSION HISTORY AND PHYSICAL EXAM: Allergies Allergy/AdvReac Type Severity Reaction Status Date / Time cats Allergy Eyes Uncoded 04/24/17 12:38 Itchy/Swollen/Red/Watery Home Medications Medication Instructions Recorded Confirmed Type NK [No Home Medications Reported] 04/24/17 04/24/17 History HPI: The patient states he has had dizzy spells for about 6 months, getting worse lately. He denied passing out or falling down. He was concerned today and took a bus to get to the ED. He states he last saw his PCP about 8 months ago. He states he "broke off' with his therapist at the [facility] 6-12 months ago. He has not taken any prescription meds for over 6 months. He no longer has a glucometer at home. Family History: Findings - patient is adopted and does not know his family hx Social History: Findings - Lives alone, on SSI. Quit smoking 3 months ago. Slef-described alcoholic, stopped heavy drinkg a few months ago. MOther is his SDM. 1 cortneyvern. Past Medical History: Findings - [facility] admission x 6. Anal fistula surgery. Review of Systems - Measurements Intake and Output: Intake and Output Last 24 Hours 04/22/17 04/23/17 04/24/17 04/25/17 06:59 06:59 06:59 06:59 Intake Total 1000 Balance 1000 Weight 350 lb Intake: IV Fluids 1000 - Review of Systems Constitutional Symptoms: Negative: Weight Gain, Weight Loss, Weakness, Fatigue, Fever, Night Sweats, Unexplained Falls, Other Dermatology: Positive: Normal HEENT: Positive: Normal Eyes: Positive: Normal Thyroid: Positive: Primary Hypothyroidism Pulmonary: Positive: Normal Cardiology: Positive: Other - near syncope Gastroenterology: Positive: Normal Genital - Urinary: Positive: Normal Genitourinary - Male: Negative: Prostatism, Erectile Dysfunction, Family Hx of Prostate Cancer, Other Musculoskeletal: Negative: Joint Pain, Joint Stiffness, Arthritis, Osteoporosis, Low Back Pain , Sciatica, Joint Deformities, Kyphoscoliosis, Other Hematologic/Lymphatic: Negative: Anemia, Easy Brusing, Hx Leukemia, Hx Lymphoma, Use of Anticoagulant, Use of Antiplatelet Drugs, Other Neurology: Positive: Normal Psychiatry: Positive: Other - Multiple [facility] admissions with several diagnoses. Allergic/Immunologic: Negative: Hx Anaphylaxis, Hx Angioedema, Hx Environmental, Hx Seasonal, Athsma, Hx HIV, Immunocompromise, Swollen Glands LymphNodes, Other Objective Active Medications: Dextrose (D50w Syringe 50 Ml*) 12.5 gm IV PUSH .FOR FS < 60 - SS PRN PRN Reason: FS < 60 Insulin Human Lispro (Humalog*) 0 units SUBCUT ACHS XANDER PRN Reason: Protocol Vital Signs - 8 hr 04/24/17 04/24/17 04/24/17 12:35 15:30 18:16 Temperature 97.5 F 97.7 F 97.5 F Pulse Rate 74 78 70 Respiratory 20 20 20 Rate Blood Pressure 152/89 154/92 150/90 (mmHg) O2 Sat by Pulse 92 98 97 Oximetry 04/24/17 04/24/17 18:33 18:34 Temperature Pulse Rate 78 Respiratory Rate Blood Pressure 156/68 (mmHg) O2 Sat by Pulse 94 Oximetry Oxygen Devices in Use Now: None Appearance: Alert, sl up on ED stretcher. Anxious but cooperative. Eyes: No Scleral Icterus Ears/Nose/Mouth/Throat: Clear Oropharnyx, Mucous Membranes Moist Neck: NL Appearance and Movements; NL JVP, No Thyroid Enlargement, Masses Respiratory: Symmetrical Chest Expansion and Respiratory Effort, Clear to Auscultation, Clear to Percussion Cardiovascular: NL Sounds; No Murmurs; No JVD, RRR, No Edema, - Abdominal: NL Sounds; No Tenderness; No Distention, No Hepatosplenomegaly, - - massively obese Extremities: No Clubbing, Cyanosis, - - 1+ edema BL Skin: No Rash or Ulcers, No Nodules or Sclerosis, - Neurological: Alert and Oriented x 3, NL Sensation Result Diagrams: 04/24/17 14:33 04/24/17 17:40 Additional Lab and Data: Lab Results 04/24/17 04/24/17 04/24/17 Range/Units 14:33 14:33 14:33 WBC 7.2 (3.5-10.8) 10^3/ul RBC 4.36 (4.0-5.4) 10^6/ul Hgb 15.1 (14.0-18.0) g/dl Hct 43 (42-52) % MCV 98 H (80-94) fL MCH 35 H (27-31) pg MCHC 36 (31-36) g/dl RDW 13 (10.5-15) % Plt Count 204 (150-450) 10^3/ul MPV 8 (7.4-10.4) um3 Neut % (Auto) 56.6 (38-83) % Lymph % (Auto) 32.9 (25-47) % [place] % (Auto) 6.6 (0-7) % Eos % (Auto) 3.0 (0-6) % Baso % (Auto) 0.9 (0-2) % Absolute Neuts (auto) 4.1 (1.5-7.7) 10^3/ul Absolute Lymphs (auto) 2.4 (1.0-4.8) 10^3/ul Absolute Monos (auto) 0.5 (0-0.8) 10^3/ul Absolute Eos (auto) 0.2 (0-0.6) 10^3/ul Absolute Basos (auto) 0.1 (0-0.2) 10^3/ul Absolute Nucleated RBC 0 10^3/ul Nucleated RBC % 0.2 Sodium 131 L (133-145) mmol/L Potassium 4.7 (3.5-5.0) mmol/L Chloride 98 L (101-111) mmol/L Carbon Dioxide 20 L (22-32) mmol/L Anion Gap 13 H (2-11) mmol/L BUN 18 (6-24) mg/dL Creatinine 0.74 (0.67-1.17) mg/dL Est GFR ( Amer) 144.6 (>60) Est GFR (Non-Af Amer) 112.4 (>60) BUN/Creatinine Ratio 24.3 H (8-20) Glucose 273 H (70-100) mg/dL POC Glucose (mg/dL) (70-100) mg/dL Calcium 9.5 (8.6-10.3) mg/dL Total Bilirubin 1.90 H (0.2-1.0) mg/dL AST 34 (13-39) U/L ALT 54 H (7-52) U/L Alkaline Phosphatase 45 (34-104) U/L Troponin I 0.16 H* (<0.04) ng/mL C-Reactive Protein 10.34 H (< 5.00) mg/L B-Natriuretic Peptide 55 ( - 100) pg/mL Total Protein 7.4 (6.4-8.9) g/dL Albumin 4.4 (3.2-5.2) g/dL Globulin 3.0 (2-4) g/dL Albumin/Globulin Ratio 1.5 (1-3) Lipase 27 (11.0-82.0) U/L TSH Pending Urine Color Urine Appearance Urine pH (5-9) Ur Specific [place] (1.010-1.030) Urine Protein (Negative) Urine Ketones (Negative) Urine Blood (Negative) Urine Nitrate (Negative) Urine Bilirubin (Negative) Urine Urobilinogen (Negative) Ur Leukocyte Esterase (Negative) Urine WBC (Auto) (Absent) Urine RBC (Auto) (Absent) Ur Squamous Epith Cells (Absent) Urine Bacteria (Absent) Urine Glucose (Negative) Urine Ascorbic Acid 04/24/17 04/24/17 04/24/17 Range/Units 17:26 17:40 18:06 WBC (3.5-10.8) 10^3/ul RBC (4.0-5.4) 10^6/ul Hgb (14.0-18.0) g/dl Hct (42-52) % MCV (80-94) fL MCH (27-31) pg MCHC (31-36) g/dl RDW (10.5-15) % Plt Count (150-450) 10^3/ul MPV (7.4-10.4) um3 Neut % (Auto) (38-83) % Lymph % (Auto) (25-47) % [place] % (Auto) (0-7) % Eos % (Auto) (0-6) % Baso % (Auto) (0-2) % Absolute Neuts (auto) (1.5-7.7) 10^3/ul Absolute Lymphs (auto) (1.0-4.8) 10^3/ul Absolute Monos (auto) (0-0.8) 10^3/ul Absolute Eos (auto) (0-0.6) 10^3/ul Absolute Basos (auto) (0-0.2) 10^3/ul Absolute Nucleated RBC 10^3/ul Nucleated RBC % Sodium 131 L (133-145) mmol/L Potassium TNP (3.5-5.0) mmol/L Chloride 100 L (101-111) mmol/L Carbon Dioxide 22 (22-32) mmol/L Anion Gap 9 (2-11) mmol/L BUN 17 (6-24) mg/dL Creatinine 0.70 (0.67-1.17) mg/dL Est GFR ( Amer) 154.2 (>60) Est GFR (Non-Af Amer) 119.9 (>60) BUN/Creatinine Ratio 24.3 H (8-20) Glucose 211 H (70-100) mg/dL POC Glucose (mg/dL) 184 H (70-100) mg/dL Calcium 8.9 (8.6-10.3) mg/dL Total Bilirubin 1.70 H (0.2-1.0) mg/dL AST TNP (13-39) U/L ALT 51 (7-52) U/L Alkaline Phosphatase 41 (34-104) U/L Troponin I (<0.04) ng/mL C-Reactive Protein (< 5.00) mg/L B-Natriuretic Peptide ( - 100) pg/mL Total Protein 7.1 (6.4-8.9) g/dL Albumin 4.2 (3.2-5.2) g/dL Globulin 2.9 (2-4) g/dL Albumin/Globulin Ratio 1.4 (1-3) Lipase (11.0-82.0) U/L TSH Urine Color Yellow Urine Appearance Cloudy Urine pH 5.0 (5-9) Ur Specific [place] 1.030 (1.010-1.030) Urine Protein Negative (Negative) Urine Ketones Trace A (Negative) Urine Blood Negative (Negative) Urine Nitrate Negative (Negative) Urine Bilirubin Negative (Negative) Urine Urobilinogen Negative (Negative) Ur Leukocyte Esterase Negative (Negative) Urine WBC (Auto) Trace(0-5/hpf) (Absent) Urine RBC (Auto) Absent (Absent) Ur Squamous Epith Cells Present A (Absent) Urine Bacteria Absent (Absent) Urine Glucose 3+(>=500 mg/dl) A (Negative) Urine Ascorbic Acid Not Reportable Assess/Plan/Problems-Billing Assessment: - Patient Problems (1) Elevated troponin Current Visit: Yes Status: Acute Code(s): R74.8 - ABNORMAL LEVELS OF OTHER SERUM ENZYMES SNOMED Code(s): 220969682 Comment: Uncertain clinical signigficance. Second troponin pending. Echo for 04/25. (2) Alcoholism Current Visit: Yes Status: Acute Code(s): F10.20 - ALCOHOL DEPENDENCE, UNCOMPLICATED SNOMED Code(s): 6667721 Comment: Hx noted. (3) Morbid obesity with BMI of 40.0-44.9, adult Current Visit: No Status: Chronic Code(s): E66.01 - MORBID (SEVERE) OBESITY DUE TO EXCESS CALORIES; Z68.41 - BODY MASS INDEX (BMI) 40.0-44.9, ADULT SNOMED Code(s): 999176041 Comment: BMI 42.6. (4) Hypothyroidism Current Visit: Yes Status: Acute Code(s): E03.9 - HYPOTHYROIDISM, UNSPECIFIED SNOMED Code(s): 10994328 Comment: TSH 3.78 04/24/17. Not clear if he ever had hypothyroidism, all prior TSH in our system are wnl. (5) Tachycardia Current Visit: Yes Status: Acute Code(s): R00.0 - TACHYCARDIA, UNSPECIFIED SNOMED Code(s): 2108117 Comment: Hx HTN also. Will start on metoprolol 50 mg bid 04/24 PM.
[2017-04-24] MEDS: Metoprolol Tartrate TAB* 50 mg PO SCH (20:51)
[2017-04-24] MEDS: Insulin LISPRO* 1 UNITS UNIT SUBCUT SCH (20:51)
[2017-04-24] MEDS ORDERED: Heparin DRIP 25,000 UNITS(*) 25,000 UNITS/500 ML BAG IVPB SCH (22:30)
--- NOTE | 2017-04-24 22:57 | PN ---
Progress Note - Progress Note Date of Service: 04/24/17 Note: Nursing reports AFIB on tele now that rate's slowed. ECG confirms AFLUT. [id number] -VASc score 2. Will monitor for rate control. Heparin GTT ordered.
[2017-04-24] MEDS ORDERED: Heparin VIAL(*) 5000 UNITS/ML VIAL (FIVE THOUSAND) IV SCH (23:00)
[2017-04-24] MEDS ORDERED: Heparin DRIP 25,000 UNITS(*) 25,000 UNITS/500 ML BAG IV SCH (23:15)
[2017-04-24] MEDS: Heparin VIAL(*) 5000 UNITS/ML VIAL (FIVE THOUSAND) IV SCH (23:32)
[2017-04-24 23:57] LABS: ABS Basophils 0.1 10^3/ul (0-0.2); ABS Eosinophils 0.2 10^3/ul (0-0.6); ABS Lymphocytes 2.5 10^3/ul (1.0-4.8); ABS Monocytes 0.6 10^3/ul (0-0.8); ABS Neutrophils 4.2 10^3/ul (1.5-7.7); ABS Nucleated RBC 0 10^3/ul; Eosinophil % 2.9 % (0-6); Hematocrit 38 % (42-52); Hemoglobin 13.4 g/dl (14.0-18.0); Lymphocyte % 32.6 % (25-47); Mean Corpuscular HGB Conc 35 g/dl (31-36); Mean Corpuscular Hemoglobin 34 pg (27-31); Mean Corpuscular Volume 98 fL (80-94); Mean Platelet Volume 8 um3 (7.4-10.4); Nucleated Red Blood Cells % 0.1; Platelet Count 193 10^3/ul (150-450); Red Blood Count 3.91 10^6/ul (4.0-5.4); Red Cell Distribution Width 13 % (10.5-15); White Blood Count 7.6 10^3/ul (3.5-10.8)
[2017-04-25 00:05] LABS: EGFR Non-African American 89.7 (>60)
[2017-04-25] MEDS: Heparin VIAL(*) 5000 UNITS/ML VIAL (FIVE THOUSAND) IV SCH (06:39)
[2017-04-25] MEDS: Metoprolol Tartrate TAB* 50 mg PO SCH (08:06)
[2017-04-25] MEDS: Insulin LISPRO* 1 UNITS UNIT SUBCUT SCH ×4 (08:06→20:14)
[2017-04-25 08:17] LABS: ABS Basophils 0 10^3/ul (0-0.2); ABS Eosinophils 0.2 10^3/ul (0-0.6); ABS Lymphocytes 2.5 10^3/ul (1.0-4.8); ABS Monocytes 0.4 10^3/ul (0-0.8); ABS Nucleated RBC 0 10^3/ul; Eosinophil % 2.7 % (0-6); Hematocrit 37 % (42-52); Hemoglobin 13.1 g/dl (14.0-18.0); Lymphocyte % 40.4 % (25-47); Mean Corpuscular HGB Conc 35 g/dl (31-36); Mean Corpuscular Hemoglobin 34 pg (27-31); Mean Corpuscular Volume 98 fL (80-94); Mean Platelet Volume 8 um3 (7.4-10.4); Nucleated Red Blood Cells % 0.1; Platelet Count 178 10^3/ul (150-450); Red Cell Distribution Width 13 % (10.5-15); White Blood Count 6.1 10^3/ul (3.5-10.8)
[2017-04-25] MEDS ORDERED: Aspirin Low Dose CHEW TAB* 81 MG PO ONE (08:20)
[2017-04-25 08:26] LABS: EGFR Non-African American 107.4 (>60)
[2017-04-25] MEDS ORDERED: Metoprolol Tartrate TAB* 25 MG PO ONE (08:35)
[2017-04-25] MEDS ORDERED: Metoprolol Tartrate IV* 1 MG/ML 5 ML VIAL IV PRN (09:15)
--- NOTE | 2017-04-25 10:16 | PN ---
Subjective Date of Service: 04/25/17 Interval History: Feels better today. No new c/o. Family History: Findings - patient is adopted and does not know his family hx Social History: Findings - Lives alone, on SSI. Quit smoking 3 months ago. Slef-described alcoholic, stopped heavy drinkg a few months ago. MOther is his SDM. 1 jackie. Past Medical History: Findings - U admission x 6. Anal fistula surgery. Objective Active Medications: Apixaban (Eliquis*) 5 mg PO BID XANDER Aspirin (Aspirin Low Dose Tab*) 81 mg PO DAILY [facility] Dextrose (D50w Syringe 50 Ml*) 12.5 gm IV PUSH .FOR FS < 60 - SS PRN PRN Reason: FS < 60 Insulin Human Lispro (Humalog*) 0 units SUBCUT ACHS [facility] PRN Reason: Protocol Last Admin: 04/25/17 08:06 Dose: 6 unit Metoprolol Tartrate (Lopressor Tab*) 75 mg PO Q12HR XANDER Metoprolol Tartrate (Lopressor Iv*) 5 mg IV Q6H PRN PRN Reason: BLOOD PRESSURE Vital Signs - 8 hr 04/25/17 04/25/17 04/25/17 03:47 07:25 07:47 Temperature 98.3 F 97.8 F Pulse Rate 97 93 Respiratory 20 20 20 Rate Blood Pressure 134/84 141/89 (mmHg) O2 Sat by Pulse 96 96 Oximetry Oxygen Devices in Use Now: None Appearance: Alert, sitting on the edge of his bed. In good spirits. Looks comfortable. Eyes: No Scleral Icterus Neck: NL Appearance and Movements; NL JVP, No Thyroid Enlargement, Masses Respiratory: Symmetrical Chest Expansion and Respiratory Effort, Clear to Auscultation, Clear to Percussion, - Cardiovascular: NL Sounds; No Murmurs; No JVD, No Edema, - - irreg Extremities: No Edema, No Clubbing, Cyanosis, - Skin: No Rash or Ulcers, No Nodules or Sclerosis, - Neurological: Alert and Oriented x 3, NL Sensation - Less anxious today. Result Diagrams: 04/25/17 05:43 04/25/17 05:43 Additional Lab and Data: Lab Results 04/24/17 04/24/17 04/24/17 Range/Units 14:33 14:33 14:33 WBC 7.2 (3.5-10.8) 10^3/ul RBC 4.36 (4.0-5.4) 10^6/ul Hgb 15.1 (14.0-18.0) g/dl Hct 43 (42-52) % MCV 98 H (80-94) fL MCH 35 H (27-31) pg MCHC 36 (31-36) g/dl RDW 13 (10.5-15) % Plt Count 204 (150-450) 10^3/ul MPV 8 (7.4-10.4) um3 Neut % (Auto) 56.6 (38-83) % Lymph % (Auto) 32.9 (25-47) % [place] % (Auto) 6.6 (0-7) % Eos % (Auto) 3.0 (0-6) % Baso % (Auto) 0.9 (0-2) % Absolute Neuts (auto) 4.1 (1.5-7.7) 10^3/ul Absolute Lymphs (auto) 2.4 (1.0-4.8) 10^3/ul Absolute Monos (auto) 0.5 (0-0.8) 10^3/ul Absolute Eos (auto) 0.2 (0-0.6) 10^3/ul Absolute Basos (auto) 0.1 (0-0.2) 10^3/ul Absolute Nucleated RBC 0 10^3/ul Nucleated RBC % 0.2 Sodium 131 L (133-145) mmol/L Potassium 4.7 (3.5-5.0) mmol/L Chloride 98 L (101-111) mmol/L Carbon Dioxide 20 L (22-32) mmol/L Anion Gap 13 H (2-11) mmol/L BUN 18 (6-24) mg/dL Creatinine 0.74 (0.67-1.17) mg/dL Est GFR ( Amer) 144.6 (>60) Est GFR (Non-Af Amer) 112.4 (>60) BUN/Creatinine Ratio 24.3 H (8-20) Glucose 273 H (70-100) mg/dL POC Glucose (mg/dL) (70-100) mg/dL Calcium 9.5 (8.6-10.3) mg/dL Total Bilirubin 1.90 H (0.2-1.0) mg/dL AST 34 (13-39) U/L ALT 54 H (7-52) U/L Alkaline Phosphatase 45 (34-104) U/L Troponin I 0.16 H* (<0.04) ng/mL C-Reactive Protein 10.34 H (< 5.00) mg/L B-Natriuretic Peptide 55 ( - 100) pg/mL Total Protein 7.4 (6.4-8.9) g/dL Albumin 4.4 (3.2-5.2) g/dL Globulin 3.0 (2-4) g/dL Albumin/Globulin Ratio 1.5 (1-3) Lipase 27 (11.0-82.0) U/L TSH Pending Urine Color Urine Appearance Urine pH (5-9) Ur Specific Crowder (1.010-1.030) Urine Protein (Negative) Urine Ketones (Negative) Urine Blood (Negative) Urine Nitrate (Negative) Urine Bilirubin (Negative) Urine Urobilinogen (Negative) Ur Leukocyte Esterase (Negative) Urine WBC (Auto) (Absent) Urine RBC (Auto) (Absent) Ur Squamous Epith Cells (Absent) Urine Bacteria (Absent) Urine Glucose (Negative) Urine Ascorbic Acid 04/24/17 04/24/17 04/24/17 Range/Units 17:26 17:40 18:06 WBC (3.5-10.8) 10^3/ul RBC (4.0-5.4) 10^6/ul Hgb (14.0-18.0) g/dl Hct (42-52) % MCV (80-94) fL MCH (27-31) pg MCHC (31-36) g/dl RDW (10.5-15) % Plt Count (150-450) 10^3/ul MPV (7.4-10.4) um3 Neut % (Auto) (38-83) % Lymph % (Auto) (25-47) % [place] % (Auto) (0-7) % Eos % (Auto) (0-6) % Baso % (Auto) (0-2) % Absolute Neuts (auto) (1.5-7.7) 10^3/ul Absolute Lymphs (auto) (1.0-4.8) 10^3/ul Absolute Monos (auto) (0-0.8) 10^3/ul Absolute Eos (auto) (0-0.6) 10^3/ul Absolute Basos (auto) (0-0.2) 10^3/ul Absolute Nucleated RBC 10^3/ul Nucleated RBC % Sodium 131 L (133-145) mmol/L Potassium TNP (3.5-5.0) mmol/L Chloride 100 L (101-111) mmol/L Carbon Dioxide 22 (22-32) mmol/L Anion Gap 9 (2-11) mmol/L BUN 17 (6-24) mg/dL Creatinine 0.70 (0.67-1.17) mg/dL Est GFR ( Amer) 154.2 (>60) Est GFR (Non-Af Amer) 119.9 (>60) BUN/Creatinine Ratio 24.3 H (8-20) Glucose 211 H (70-100) mg/dL POC Glucose (mg/dL) 184 H (70-100) mg/dL Calcium 8.9 (8.6-10.3) mg/dL Total Bilirubin 1.70 H (0.2-1.0) mg/dL AST TNP (13-39) U/L ALT 51 (7-52) U/L Alkaline Phosphatase 41 (34-104) U/L Troponin I (<0.04) ng/mL C-Reactive Protein (< 5.00) mg/L B-Natriuretic Peptide ( - 100) pg/mL Total Protein 7.1 (6.4-8.9) g/dL Albumin 4.2 (3.2-5.2) g/dL Globulin 2.9 (2-4) g/dL Albumin/Globulin Ratio 1.4 (1-3) Lipase (11.0-82.0) U/L TSH Urine Color Yellow Urine Appearance Cloudy Urine pH 5.0 (5-9) Ur Specific Crow[place] 1.030 (1.010-1.030) Urine Protein Negative (Negative) Urine Ketones Trace A (Negative) Urine Blood Negative (Negative) Urine Nitrate Negative (Negative) Urine Bilirubin Negative (Negative) Urine Urobilinogen Negative (Negative) Ur Leukocyte Esterase Negative (Negative) Urine WBC (Auto) Trace(0-5/hpf) (Absent) Urine RBC (Auto) Absent (Absent) Ur Squamous Epith Cells Present A (Absent) Urine Bacteria Absent (Absent) Urine Glucose 3+(>=500 mg/dl) A (Negative) Urine Ascorbic Acid Not Reportable Assess/Plan/Problems-Billing Assessment: - Patient Problems (1) Elevated troponin Current Visit: Yes Status: Acute Code(s): R74.8 - ABNORMAL LEVELS OF OTHER SERUM ENZYMES SNOMED Code(s): 014652854 Comment: Uncertain clinical signigficance, likelyt related to his tachycardia. Second troponin pending. Echo for 04/26. Dr. Andrade to consult. (2) Alcoholism Current Visit: Yes Status: Acute Code(s): F10.20 - ALCOHOL DEPENDENCE, UNCOMPLICATED SNOMED Code(s): 9505325 Comment: Hx noted. (3) Morbid obesity with BMI of 40.0-44.9, adult Current Visit: No Status: Chronic Code(s): E66.01 - MORBID (SEVERE) OBESITY DUE TO EXCESS CALORIES; Z68.41 - BODY MASS INDEX (BMI) 40.0-44.9, ADULT SNOMED Code(s): 995595476 Comment: BMI 42.6. (4) Hypothyroidism Current Visit: Yes Status: Acute Code(s): E03.9 - HYPOTHYROIDISM, UNSPECIFIED SNOMED Code(s): 51941736 Comment: TSH 3.78 04/24/17. Not clear if he ever had hypothyroidism, all prior TSH in our system are wnl. (5) Atrial flutter Current Visit: Yes Status: Acute Code(s): I48.92 - UNSPECIFIED ATRIAL FLUTTER SNOMED Code(s): 2068134 Comment: Metoprolol increased to 75 mg bid 04/25 AM. Apixaban started 04/25 AM , stop heparin.
[2017-04-25] MEDS: Apixaban* 5 MG TAB PO SCH ×2 (11:13→20:14)
[2017-04-25] MEDS ORDERED: traZODone TAB* 50 MG TAB PO PRN (14:03)
[2017-04-25] MEDS: ARIPiprazole TAB* 5 MG PO SCH (15:00)
[2017-04-25] MEDS: Sertraline* 50 MG TAB PO SCH (15:00)
[2017-04-25] MEDS ORDERED: Insulin GLARGINE(*) 1 UNITS UNIT SUBCUT SCH (16:00)
--- NOTE | 2017-04-25 16:04 | CONSULT ---
Subjective Date of Service: 04/25/17 Interval History: Admission Date: 04/24/17 Date of consult 04/25/2017 Provider: Adam Bailon MD/Hospitalist service PMD Dr. Herman CC: Dizziness and fatigue Reason for consult: Atrial flutter. HPI: Mr. Elias Rodriguez is a 47 year old man with a history of obesity, history of severe sleep apnea not being treated for, DM, HTN, dyslipidemia, alcoholism with frequent relapses no ETOH in 2 months, schizoaffective disorder with multiple inpatient admissions and a history of medication non-adherence. He has not taken any medications in months. He would have dizziness episodes and trouble with activity due to fatigue in the past that was intermittent. He is now admitted with what he says is 3-4 weeks of dizziness, fatigue, lightheadedness and dyspnea. There has been no chest discomfort, outright palpitations or syncope. He was found with rapid atrial flutter and has received rate control and anti-coagulation. He received 75 mg of oral metoprolol tartrate this morning and his resting heart rates are now in the 90' s at rest and he is asymptomatic with this. I had him ambulate in the hallway and he remained asymptomatic until one lap around 4 south when his HR reached 140 bpm he developed mild lightheadedness and fatigue but nothing near as severe as what prompted his admission. He has no known CHF, vascular disease, or TIA/CVA. Family History: Findings - patient is adopted and does not know his family hx Social History: Findings - Lives alone, on SSI. Quit smoking 3 months ago. alcoholic, stopped heavy drinkg 2 months ago. Mother is his SDM. 1 daughter age 22 Past Medical History: As per HPI Denies bleeding history Psurgical hx: Anal fistula surgery. Medications Active Medications: Apixaban (Eliquis*) 5 mg PO BID [facility] Last Admin: 04/25/17 11:13 Dose: 5 mg Aripiprazole (Abilify Tab*) 5 mg PO DAILY [facility] Last Admin: 04/25/17 15:00 Dose: 5 mg Atorvastatin Calcium (Lipitor*) 40 mg PO 2100 [facility] Dextrose (D50w Syringe 50 Ml*) 12.5 gm IV PUSH .FOR FS < 60 - SS PRN PRN Reason: FS < 60 Insulin Glargine (Lantus(*)) 15 units SUBCUT Q24H [facility] Insulin Human Lispro (Humalog*) 0 units SUBCUT ACHS [facility] PRN Reason: Protocol Last Admin: 04/25/17 12:02 Dose: 12 unit Metoprolol Tartrate (Lopressor Iv*) 5 mg IV Q6H PRN PRN Reason: BLOOD PRESSURE Metoprolol Tartrate (Lopressor Tab*) 100 mg PO BID [facility] Sertraline HCl (Zoloft*) 50 mg PO DAILY [facility] Last Admin: 04/25/17 15:00 Dose: 50 mg Trazodone HCl (Desyrel Tab*) 50 mg PO BEDTIME PRN PRN Reason: INSOMNIA Home Medications: NK [No Home Medications Reported] 04/24/17 [History Confirmed 04/24/17] Review of Systems - Measurements Intake and Output: Intake and Output Last 24 Hours 04/23/17 04/24/17 04/25/17 04/26/17 06:59 06:59 06:59 06:59 Intake Total 360 Balance 360 Intake: Oral 360 - Review of Systems Constitutional Symptoms: Positive: Weakness, Fatigue Negative: Weight Gain, Weight Loss, Fever, Night Sweats Dermatology: Negative: Rash, Skin Lesions HEENT: Negative: Change in Hearing, Vertigo Eyes: Negative: Change in Vision, Double Vision Thyroid: Negative: Goiter, Tremor, Frequent Defecation, Constipation, Palpitations, Weight Loss, Weight Gain, Change in Skin/Hair, Change in Menstration Pulmonary: Positive: Shortness of Breath, Exercise Intolerance Negative: Cough, Sputum, Hemoptysis, Wheezing, Respiratory Distress, COPD, Asthma, Home Oxygen Cardiology: Positive: Shortness of Breath Negative: Chest Pain, Palpitations, Swelling of Ankles, Peripheral Vascular Dis, Edema, Syncope, Claudication, Paroxysmal Nocturnal Dyspnea, Orthopnea Gastroenterology: Negative: Abdominal Pain, Nausea, Vomiting, Anorexia, Indigestion, Difficulty Swallowing, Heartburn, Constipation, Diarrhea, Blood in Stools, Change in Bowel Habits, Haematemesis, Melena Genital - Urinary: Negative: Dysuria, Hematuria Musculoskeletal: Negative: Joint Pain, Joint Stiffness Endocrinology: Positive: Obesity, Diabetes, Hyperglycemia Hematologic/Lymphatic: Negative: Anemia, Use of Anticoagulant Neurology: Negative: Change in Balancing, Change in Coordination, Hx of Stroke\TIA, Hx Seizures Psychiatry: Negative: Tearfulness, Hypomania Allergic/Immunologic: Negative: Hx Anaphylaxis, Hx Angioedema, Hx HIV, Immunocompromise Review of Systems Statement: All other review of systems negative, unless stated above. Objective Vital Signs: Temp Pulse Resp BP Pulse Ox 98.8 F 101 20 136/86 94 04/25/17 15:18 04/25/17 15:18 04/25/17 15:18 04/25/17 15:18 04/25/17 15:18 Oxygen Devices in Use Now: None Appearance: nad, pleasant Ears/Nose/Mouth/Throat: Clear Oropharnyx, Mucous Membranes Moist Neck: Trachea Midline, - - uncertain jvp Respiratory: Symmetrical Chest Expansion and Respiratory Effort, Clear to Auscultation Cardiovascular: - - irregularly irregular, no significant murmur, distant Abdominal: NL Sounds; No Tenderness; No Distention, - - obese Extremities: No Clubbing, Cyanosis Skin: No Rash or Ulcers Neurological: Alert and Oriented x 3 Laboratory Results: 04/25/17 05:43 04/25/17 05:43 Na 131, k 3.9 APTT 38.4 seconds (26.0-36.3) H 04/25/17 05:43 Total Bilirubin 1.70 mg/dL (0.2-1.0) H 04/24/17 17:40 AST 38 U/L (13-39) 04/24/17 18:24 ALT 51 U/L (7-52) 04/24/17 17:40 Alkaline Phosphatase 41 U/L (34-104) 04/24/17 17:40 B-Natriuretic Peptide 55 pg/mL (-100) 04/24/17 14:33 Total Protein 7.1 g/dL (6.4-8.9) 04/24/17 17:40 Albumin 4.2 g/dL (3.2-5.2) 04/24/17 17:40 Globulin 2.9 g/dL (2-4) 04/24/17 17:40 Albumin/Globulin Ratio 1.4 (1-3) 04/24/17 17:40 TSH 3.78 mcIU/mL (0.34-5.60) 04/24/17 14:33 04/24/17 04/24/17 04/24/17 14:33 17:40 23:22 Troponin I 0.16 H* 0.16 H* 0.14 H* 08/2016: tri 113, tchol 191, ldl 132, hdl 37 hgba1c 6.6 EKG Data: ekg 04/24/2017: Rapid atrial flutter 120 bpm ekg 04/25/2017: atrial flutter, appears typical 3:1 block rate 90 bpm Assessment/Plan Mr. Rodriguez is a 47 year old man with a history as above admitted with symptomatic rapid atrial flutter, symptoms significantly improved with rate control, chads2-vasc score at least 2. - We discussed various aspects of arrhythmia causes and treatments. - Atrial flutter superintendent terminal is difficult to manage with rate control and I think he will ultimately benefit from a rhythm control management - I think his risk of recurrence given obesity and sleep apnea would be very high with a cardioversion alone and I would not want to subject him to the risk of retirement anti-arrhythmic use. We discussed the risks and benefits of an ablation for this particularly arrhythmia which has a very high success rate with low complication rate and he would like to pursue this. I will try to arrange an EP evaluation with Dr. Milner at [facility] office on 04/30/2017. He is very concerned about his cardiac status and he tells me he will have not trouble maintaining adherence if it is for medications directly related to his heart. He understands further non-adherence places him at risk of things including but not limited to stroke, heart attack and . - For now would: - increase metoprolol to 100 mg po bid (ordered) - Continue eliquis 5 mg po bid - Stop aspirin - Start primary prevention statin (ordered) DM management per primary service Echo pending He has a mildly detectable troponin without chest discomfort, ischemic EKG changes or a rise and fall of troponin suggestive of ACS. The troponin is likely related to his atrial tachyarrhthmia but may also reflect underlying structural heart disease/LVH related to HTN or possibly stable ischemic heart disease. An ischemic evaluation can be considered in the future but as long as no significant LV dysfunction I think that the beta-xiomara, statin and anti- coagulation is sufficient for the time being. Thank you for allowing me to participate in the cardiovascular care of this patient. Please do not hesitate to contact me with questions or concerns.
--- NOTE | 2017-04-25 17:58 | CONS ---
CONSULTATION REPORT: DATE OF CONSULT: 04/25/17 ATTENDING PHYSICIAN: Blade Bailon MD CONSULTING PHYSICIAN: Hunter Pedroza MD REASON FOR CONSULT: Medication management. SUBJECTIVE HISTORY: Psychiatry is asked to see this 47-year-old single, domiciled white male with a history of alcoholism and schizoaffective disorder due to the fact that he has allegedly been out of psychiatric treatment for the past 8 months, not attending outpatient appointments at [facility], nor taking prescribed psychiatric medications. I initially spoke with the medical at [facility], Dr. Aneesh Bailon, who indicates that the patient has been admitted due to dizzy spells, as we ll as elevated troponins. He is still pending a coronary echocardiogram. At any rate, although he d enied suicidal or homicidal thoughts, it was concerning to the primary team when he divulged that he has not had any psychiatric outpatient treatment in the last 8 months. When I met with him, he is ve ry interested in being re-enrolled in psychiatric care. He indicates that his last psychiatric hospi talization happened here on the behavioral science unit in August, at which time he was having signific ant family stressors. Those stressors have resolved, but he states that his heart situation has scar ed him and that he would like to start taking better of himself. He states, " I go to the [employer] every day which is a social club, for some reason I just stopped going to the mental health clin , but I live in that neighborhood and I would like to get hooked up again." Specifically, he state s that he saw a neonatal social worker there named Yeni Moreno and would like a followup appointment with vern. His most recent psychiatric medications included Abilify, Zoloft and p.r.n. trazodone and he is similarly interested in resuming these. Symptomatically, he denies suicidal or homicidal ideations. He does admit to some mood instability, which is improved when he is taking psychiatric medications. He denies active major depressive or manic symptomatology. PAST PSYCHIATRIC HISTORY: The patient has 6 prior hospitalizations at [facility] for psyc hiatric reasons. He has also been psychiatrically hospitalized in [place] and [facility]. His historical diagnoses include schizoaffective disorder and cluster B traits. He has been faustina jagdeep in the past with antidepressants and anxiolytics as well as antipsychotic medications. Most recen tly he was seen at [facility] where his psychiatrist was Dr. Nielson and his t herapist was Yeni Moreno. PAST MEDICAL HISTORY: Significant for morbid obesity, hypertension, type 2 diabetes, hypothyroidism, hypercholesterolemia. SUBSTANCE ABUSE HISTORY: He has a severe history of alcohol dependence, at one time drinking up to 3 L of vodka per week. He has been in several rehabilitation programs, spending time in [facility] in October 2014. He was then in care home house for 3 months. He states that occasion ally he will relapse on small amounts of alcohol, but denies any significant binges. He denies the u se of tobacco, illicit drugs or misused prescription medications. FAMILY HISTORY: Unknown as the patient is adopted. SOCIAL HISTORY: The patient has never been . He does have a daughter who is about 21 years o ld. The patient completed 1 year of college. He has worked various short-term jobs in the past. Cur rently he receives social security for mental disability. He does have his own apartment locally in [place] and goes to the [employer] which is a social club for members of the [employer]. MENTAL STATUS EXAMINATION: The patient is a large morbidly obese white male with reddish hair and a eldridge, who is lying on his side in the patient gown watching TV. He is calm, cooperative, easy to est ablish a rapport with. He makes good eye contact. Speech has normal rate, tone and volume. Mood is euthymic with a full affect. Thought process is linear, goal directed. Thought content is signific ant for his desire to get hooked back in to mental health services including taking psychiatric medi cations. He denies suicidal or homicidal ideations. He denies auditory or visual hallucinations. I nsight and judgement appear to be fair, given his willingness to follow through with outpatient treat ment. Cognitively he is awake and alert with what would appear to be an average intellect. DIAGNOSES: Buskirk I: Schizoaffective disorder bipolar type, alcohol use disorder and sustained remissi on. [place] II: Cluster B traits. ASSESSMENT: The patient is a 47-year-old single never white male, who is domiciled and on di sability with a history of schizoaffective disorder and alcohol dependence in remission, who is being seen due to being psychiatrically unserved for approximately the past 8 months. It is not exactly s ure how he got lost to followup, although it is clear by the patient's statements that he would like to get hooked back in with treatment in the community. Specifically, he is requesting resumption of sertraline, aripiprazole, and p.r.n. trazodone. He would also like a neonatal social worker's assistance in m aking a followup appointment at [facility]. RECOMMENDATIONS TO PRIMARY TEAM: Psychiatry feels that the patient is psychiatrically stable, but go od benefit from resumption of treatment, given his extensive history of psychiatric hospitalization. We will write for resumption of sertraline 50 mg p.o. q. daily, aripiprazole 5 mg p.o. q. daily, and trazodone 50 mg p.o. q.h.s. as a p.r.n. for insomnia. We will also go ahead and consult the social work service to see if we can get an appointment for him for intake back at [facility]. At this time, the patient does not need any further acute psychiatric care. He is not appropr iate for the inpatient psychiatric service and we feel that he is psychiatrically safe for discharge. Psychiatry is signing off at this time, but can be reconsulted in the event of a change in the lisa ent's presentation. Thank you for the consult. [id number]/[facility] #: [id number]
[2017-04-25] MEDS: Metoprolol Tartrate TAB* 100 MG TAB PO SCH (20:14)
[2017-04-25] MEDS ORDERED: Metoprolol Tartrate TAB* 50 mg PO SCH (21:00)
[2017-04-25] MEDS ORDERED: Atorvastatin* 40 MG TAB PO SCH (21:00)
[2017-04-26] MEDS: Sertraline* 50 MG TAB PO SCH (08:27)
[2017-04-26] MEDS: ARIPiprazole TAB* 5 MG PO SCH (08:27)
[2017-04-26] MEDS: Apixaban* 5 MG TAB PO SCH (08:27)
[2017-04-26] MEDS: Insulin LISPRO* 1 UNITS UNIT SUBCUT SCH ×2 (08:28→12:39)
[2017-04-26] MEDS: Metoprolol Tartrate TAB* 100 MG TAB PO SCH (08:35)
[2017-04-26] MEDS ORDERED: Aspirin Low Dose CHEW TAB* 81 MG PO SCH (09:00)
[2017-04-26 09:17] VITALS: BP 122/64
--- NOTE | 2017-04-26 10:44 | ECHO ---
Patient: NIALL HAYES [facility] Rec#: [id number] : 1970 Date: 04/26/2017 Age: 47y Height: 193.04 cm / 76.0 in Weight: 167.83 kg / 369.9 lbs Sex: M BSA: 2.88 Room#: 431 Admit Date#: 04/25/2017 Type: Inpatient Referring: Adam Bailon MD Reading: Emery Andrade DO Scallop Cutter: Fransisca Huggins RDCS CC: ANAHI SANTOS Transthoracic Echocardiogram Indication: ACS BP: 136/76 HR: 93 Rhythm: NSR Findings History: Obesity,untreated DANNY,DM,HTN,HLD,ETOH abuse,psyche disorder, rapid a-flutter, former smoker,SOB. Technical Comments: The study is technically limited due to patient body habitus. Completed at 0935. The study is technically limited due to the patient's smoking history. Left Ventricle: The left ventricular chamber size is normal. Mild concentric left ventricular hypertrophy is observed. Global left ventricular wall motion and contractility are within normal limits. There is normal left ventricular systolic function. The estimated ejection fraction is 55-60%. The assessment of diastolic function is non-diagnostic. Left Atrium: The left atrium is mildly dilated. Right Ventricle: The right ventricular chamber size and systolic function are within normal limits. Right Atrium: The right atrial cavity size is normal. Aortic Valve: The aortic valve structure is not well visualized. There is no evidence of aortic regurgitation. There is no evidence of aortic stenosis. Mitral Valve: The mitral valve leaflets are mildly thickened. There is a trace of mitral regurgitation. There is no evidence of mitral stenosis. Tricuspid Valve: The tricuspid valve leaflets are normal. There is a physiologic tricuspid regurgitation. Unable to estimate the right ventricular systolic pressure. There is no tricuspid stenosis. Pulmonic Valve: The pulmonic valve structure is not well visualized. There is no evidence of pulmonic regurgitation. There is no pulmonic stenosis. Pericardium: There is no significant pericardial effusion. Aorta: There is no dilatation of the ascending aorta. There is no dilatation of the aortic arch. There is no dilation of the aortic root. Pulmonary Artery: The main pulmonary artery is not well visualized. Venous: The venous system is not well visualized. Conclusions The left ventricular chamber size is normal. Mild concentric left ventricular hypertrophy is observed. There is normal left ventricular systolic function. Global left ventricular wall motion and contractility are within normal limits. The estimated ejection fraction is 55-60%. The left atrium is mildly dilated. The right ventricular chamber size and systolic function are within normal limits. No significant valvular abnormalities noted Patient is in atrial flutter at time of study No prior studies available for comparison at time of interpretation Measurements Name Value Normal Range RVIDd (AP) 2D 2.9 cm (0.9 - 2.6) RVDdMajor (2D) 3.9 cm (2.2 - 4.4) RAd ISD 4CH 4.6 cm (3.4 - 4.9) RA (A4C)W 4.8 cm (2.9 - 4.6) IVSd (2D) 1.3 cm (0.6 - 1) LVPWd (2D) 1.2 cm (0.6 - 1) LVIDd (2D) 5.4 cm (3.6 - 5.4) LVIDs (2D) 3 cm - LV FS (2D) 44 % (25 - 45) Aortic Annulus 2.2 cm (1.4 - 2.6) Ao root diameter (2D) 3.5 cm (2.1 - 3.5) Ascending Ao 3.2 cm (2.1 - 3.4) Aortic arch 2.9 cm (1.8 - 3.4) Descending Ao 0.9 cm - LA dimension (AP) 2D 3.9 cm (2.3 - 3.8) LAd ISD 4CH 6.3 cm (2.9 - 5.3) LA ISD 4CH W 3.9 cm (2.5 - 4.5) Name Value Normal Range LA ESV SP 4CH (A/L) 59.5 ml - LA ESV SP 4CH (MOD) 54.56 ml - Name Value Normal Range MV E-wave Vmax 0.9 m/sec - MV deceleration time 158 msec - MV A-wave Vmax 0.7 m/sec - MV E:A ratio 1.33 ratio - LV septal e' Vmax 0.14 m/sec - LV lateral e' Vmax 0.14 m/sec - LV E:e' septal ratio 6.43 ratio - LV E:e' lateral ratio 6.43 ratio - Name Value Normal Range AV Vmax 1.2 m/sec - AV VTI 23.5 cm - AV peak gradient 5.37 mmHg - AV mean gradient 2.42 mmHg - LVOT Vmax 1 m/sec - LVOT VTI 18.3 cm - LVOT peak gradient 4.18 mmHg - LVOT mean gradient 2.04 mmHg - Name Value Normal Range PV Vmax 0.7 m/sec - PV peak gradient 2.21 mmHg -
--- NOTE | 2017-04-26 11:43 | PN ---
Subjective Date of Service: 04/26/17 Interval History: f/u atrial flutter resting HR aflutter 80's ambulated around hallway and remained asymptomatic HR to about 120 bpm max this AM no lightheadedness, palpitations, dyspnea or syncope echo this AM mild LVH, LVEF 60% no WMA, mild La dilation, no significant valvular abnormalities noted Medications Active Medications: Apixaban (Eliquis*) 5 mg PO BID [facility] Last Admin: 04/26/17 08:27 Dose: 5 mg Aripiprazole (Abilify Tab*) 5 mg PO DAILY [facility] Last Admin: 04/26/17 08:27 Dose: 5 mg Atorvastatin Calcium (Lipitor*) 40 mg PO 2100 [facility] Last Admin: 04/25/17 20:14 Dose: 40 mg Dextrose (D50w Syringe 50 Ml*) 12.5 gm IV PUSH .FOR FS < 60 - SS PRN PRN Reason: FS < 60 Insulin Glargine (Lantus(*)) 15 units SUBCUT Q24H [facility] Last Admin: 04/25/17 16:21 Dose: 15 units Insulin Human Lispro (Humalog*) 0 units SUBCUT ACHS [facility] PRN Reason: Protocol Last Admin: 04/26/17 08:28 Dose: 3 unit Metoprolol Tartrate (Lopressor Iv*) 5 mg IV Q6H PRN PRN Reason: BLOOD PRESSURE Last Admin: 04/25/17 17:09 Dose: 5 mg Metoprolol Tartrate (Lopressor Tab*) 100 mg PO BID [facility] Last Admin: 04/26/17 08:35 Dose: 100 mg Sertraline HCl (Zoloft*) 50 mg PO DAILY [facility] Last Admin: 04/26/17 08:27 Dose: 50 mg Trazodone HCl (Desyrel Tab*) 50 mg PO BEDTIME PRN PRN Reason: INSOMNIA Objective Vital Signs: Temp Pulse Resp BP Pulse Ox 97.8 F 98 20 122/64 93 04/26/17 07:06 04/26/17 08:31 04/26/17 07:06 04/26/17 09:17 04/26/17 07:06 Oxygen Devices in Use Now: None Appearance: nad, pleasant Ears/Nose/Mouth/Throat: Clear Oropharnyx, Mucous Membranes Moist Neck: Trachea Midline, - - uncertain jvp Respiratory: Symmetrical Chest Expansion and Respiratory Effort, Clear to Auscultation Cardiovascular: - - irregularly irregular, no significant murmur, distant Abdominal: NL Sounds; No Tenderness; No Distention, - - obese Extremities: No Clubbing, Cyanosis Skin: No Rash or Ulcers Neurological: Alert and Oriented x 3 Laboratory Results: APTT 38.4 seconds (26.0-36.3) H 04/25/17 05:43 Total Bilirubin 1.70 mg/dL (0.2-1.0) H 04/24/17 17:40 AST 38 U/L (13-39) 04/24/17 18:24 ALT 51 U/L (7-52) 04/24/17 17:40 Alkaline Phosphatase 41 U/L (34-104) 04/24/17 17:40 B-Natriuretic Peptide 55 pg/mL (-100) 04/24/17 14:33 Total Protein 7.1 g/dL (6.4-8.9) 04/24/17 17:40 Albumin 4.2 g/dL (3.2-5.2) 04/24/17 17:40 Globulin 2.9 g/dL (2-4) 04/24/17 17:40 Albumin/Globulin Ratio 1.4 (1-3) 04/24/17 17:40 TSH 3.78 mcIU/mL (0.34-5.60) 04/24/17 14:33 EKG Data: ekg 04/24/2017: Rapid atrial flutter 120 bpm ekg 04/25/2017: atrial flutter, appears typical 3:1 block rate 90 bpm Assessment/Plan Mr. Rodriguez is a 47 year old man with a history of obesity, dm, htn, sleep apnea, prior alcoholism, schizoaffective disorder admitted with symptomatic rapid atrial flutter, symptoms significantly improved with rate control, chads2- vasc score at least 2, LVEF normal. - Continue metoprolol 100 mg po bid - Continue eliquis 5 mg po bid - Continue atorvastatin 40 mg po daily - DM management per primary service - Patient tells me will start working on a healthier diet and weight loss - Will try to arrange EP [place] [facility] [place] . Thank you for allowing me to participate in the cardiovascular care of this patient. Please do not hesitate to contact me with questions or concerns.
[2017-04-26] MEDS ORDERED: Insulin GLARGINE(*) 1 UNITS UNIT SUBCUT ONE (12:16)
--- NOTE | 2017-04-26 12:18 | PN ---
Progress Note - Progress Note Date of Service: 04/26/17 Note: Time spent on discharge 55 minutes.
--- NOTE | 2017-04-27 09:12 | DS ---
CC: Dr. Herman; Dr. Andrade * DISCHARGE SUMMARY: DATE OF ADMISSION: DATE OF DISCHARGE: 04/26/17 HISTORY OF PRESENT ILLNESS: This 47-year-old man stated he had been having dizzy spells for about 6 months, getting worse recently. He denied passing out or falling down. He denied chest pain, cough, or shortness of breath. He had not seen any of his providers for possibly 6 to 12 months. He had not seen this therapist in the mental health clinic or his primary care provider. He stated he had not taken any prescription medications for at least 6 months. In the past, he had had glucometer, but not any longer. He stated he was an alcoholic, but stopped heavy drinking a few months ago. He also quit smoking about 3 months ago. The rest of the details of his presentation are in the admission note. The patient was atrial flutter on presentation in the emergency room. He was admitted to telemetry unit. He was started on metoprolol, apixaban. He was started on atorvastatin. He was seen by Dr. Pedroza and started on aripiprazole, sertraline, and trazodone. I note his A1c is over 11, he was started on glargine insulin. He got 15 units in the hospital and will take 20 units at home. He was given the pen. He was given some diabetic instruction. I think he will do very well with the pen, I would like to get him a glucometer as well and he will certainly need more treatment for his diabetes and single injection of Lantus daily, but this will give him some degree of control until he follows up with his primary care provider. Dr. Andrade saw the patient in consultation as well and is arranging for the patient to see an auditor appraiser on 04/30/17. FINAL DIAGNOSES: 1. Atrial flutter. 2. Diabetes. 3. Psychiatric disorder. 4. Morbid obesity. 5. History of alcoholism. DISCHARGE MEDICATIONS: 1. Apixaban 5 mg b.i.d. 2. Aripiprazole 5 mg daily. 3. Atorvastatin 40 mg daily. 4. Metoprolol 100 mg b.i.d. 5. Sertraline 50 mg daily. 6. Trazodone 50 mg h.s. p.r.n. insomnia. 7. Glargine insulin 20 units daily. [id number]/[facility] #: [id number] [facility]PITALTrey
== END 2017-04-26 13:15 | disposition home or self-care (01) | DRG 201 ==
LOC: ED 12:29 → MEDTELE 18:50 → OBSVTOIN 04-25 11:30
PROVIDERS: ADMIT Internal Medicine; ATTEND Internal Medicine
DX: I48.3 Typical atrial flutter (principal); Z68.42 Body mass index [BMI] 45.0-49.9, adult; E11.65 Type 2 diabetes mellitus with hyperglycemia; E66.01 Morbid (severe) obesity due to excess calories; F10.21 Alcohol dependence, in remission; F25.0 Schizoaffective disorder, bipolar type; R74.8 Abnormal levels of other serum enzymes; E03.9 Hypothyroidism, unspecified; G47.30 Sleep apnea, unspecified; J30.81 Allergic rhinitis due to animal (cat) (dog) hair and dander; E78.00 Pure hypercholesterolemia, unspecified; M19.90 Unspecified osteoarthritis, unspecified site; Z81.1 Family history of alcohol abuse and dependence; Z87.891 Personal history of nicotine dependence; Z79.84 Long term (current) use of oral hypoglycemic drugs; Z79.4 Long term (current) use of insulin
CPT/HCPCS: 36415; 71046; 80053; 81003; 82565; 83690; 83880; 84443; 84484; 84520; 85025; 85730; 86140; 87077; 87086; 93005; 93306; 99284; A9270-GY; G0378; J1644; J3490

== ENCOUNTER 2017-05-29 21:10 | Emergency (ER) | payer OTHER ==
[2017-05-29] MEDS ORDERED: LORazepam INJ* 2 MG/ML 1 ML VIAL ONE (21:40)
[2017-05-29] MEDS ORDERED: Haloperidol INJ IV/IM* 5 MG/ML AMP ONE (21:40)
[2017-05-30 00:02] LABS: ABS Basophils 0.1 10^3/ul (0-0.2); ABS Eosinophils 0.1 10^3/ul (0-0.6); ABS Lymphocytes 2.5 10^3/ul (1.0-4.8); ABS Monocytes 0.4 10^3/ul (0-0.8); ABS Neutrophils 3.4 10^3/ul (1.5-7.7); ABS Nucleated RBC 0 10^3/ul; Eosinophil % 1.6 % (0-6); Hematocrit 44 % (42-52); Hemoglobin 15.2 g/dl (14.0-18.0); Lymphocyte % 38.8 % (25-47); Mean Corpuscular HGB Conc 35 g/dl (31-36); Mean Corpuscular Hemoglobin 35 pg (27-31); Mean Corpuscular Volume 100 fL (80-94); Mean Platelet Volume 7.3 um3 (7.4-10.4); Nucleated Red Blood Cells % 0.1; Platelet Count 223 10^3/ul (150-450); Red Cell Distribution Width 14 % (10.5-15); White Blood Count 6.5 10^3/ul (3.5-10.8)
[2017-05-30 04:36] LABS: Urine Appearance Cloudy; Urine Blood Negative (Negative); Urine Color Yellow; Urine Ketones Trace (Negative); Urine Protein Negative (Negative); Urine Specific Gravity 1.013 (1.010-1.030); Urine Urobilinogen Negative (Negative)
[2017-05-30] MEDS ORDERED: Metoprolol Tartrate TAB* 50 mg PO ONE (09:50)
--- NOTE | 2017-05-30 11:15 | ED ---
Darrell Lam Jennifer, stared for Jose Murphy MD on 05/30/17 at 1022 . Progress - Progress Note Progress Note: The patient is a sign out from Dr. Valencia pending mental health evaluation. - Consult/PCP Time Called: 09:24 Course/Dx - Course Course Of Treatment: DISCHARGED HOME STABLE AFTER MHE. PATIENT IN AFLUTTER IN ED. THIS IS A CHRONIC DX. HE WAS GIVEN HIS PO METOPROLOL IN THE ED. F/U PMD AND MENTAL HEALTH; RETURN IF WORSE. - Diagnoses Provider Diagnoses: Alcohol intoxication, Mental health problem, Atrial flutter Discharge - Sign-Out/Discharge Documenting (check all that apply): Discharge - Discharge Plan Condition: Stable Disposition: HOME Patient Education Materials: Alcohol Intoxication (ED) Referrals: Margarita Herman MD [Primary Care Provider] - Additional Instructions: FOLLOW UP WITH YOUR DOCTOR. RETURN TO THE EMERGENCY DEPARTMENT FOR ANY WORSENING OF YOUR CONDITION OR QUESTIONS OR CONCERNS. - Billing Disposition and Condition Condition: STABLE Disposition: HOME The documentation as recorded by the Darrell villatoro Jennifer accurately reflects the service I personally performed and the decisions made by me, Jose Murphy MD.
[2017-05-30 11:21] VITALS: BP 126/91
--- NOTE | 2017-05-30 23:34 | ED ---
Jerica Lam Nilda, scribed for Radames Valencia MD on 05/29/17 at 2125 . Psychiatric Complaint - HPI Summary HPI Summary: This patient is a 47 year old M GRISELDA accompanied by EMS with a chief complaint of intermittent visual hallucinations (sees numbers) since this evening. EMS states pt is verbally hostile, becomes paranoid when being crowded, and that pt called dispatch to report SI. EMS notes that upon arrival pt made an SI gesture with his hand shaped as a gun pointing to himself. Pt states medication noncompliance but does not state what medications he must be taking. He notes drinking alcohol tonight (7 beers). He denies drug use. Symptoms aggravated by recent stressors with family. PMHx depression, anxiety, violence against others , and Schizoaffective disorder. - History Of Current Complaint Time Seen by Provider: 05/29/17 21:15 Hx Obtained From: Patient, EMS Onset/Duration: Sudden Onset, Lasting Hours, Still Present Timing: Constant Character: Angry, Frustrated Aggravating Factor(s): Recent Stress, Medication Non-compliance Associated Signs And Symptoms: Positive: Hostile, Hallucinating, Paranoid Behavior Related History: Positive For: Prior Psychiatric Issues Has Suicidal: Reports: Demonstrates Gesture - Allergies/Home Medications Allergies/Adverse Reactions: Allergies Allergy/AdvReac Type Severity Reaction Status Date / Time cats Allergy Eyes Uncoded 04/24/17 12:38 Itchy/Swollen/Red/Watery PMH/Surg Hx/FS Hx/Imm Hx Endocrine/Hematology History: Reports: Hx Diabetes, Hx Thyroid Disease Denies: Hx Anticoagulant Therapy Cardiovascular History: Reports: Hx Hypercholesterolemia, Hx Hypertension Denies: Hx Congestive Heart Failure, Hx Deep Vein Thrombosis, Hx Myocardial Infarction, Hx Pacemaker/ICD, Hx Peripheral Vascular Disease Respiratory History: Reports: Hx Asthma - He used inhalers when he had bronchitis., Hx Sleep Apnea, Other Respiratory Problems/Disorders - Bronchitis in Mar 2015 Denies: Hx Chronic Obstructive Pulmonary Disease (COPD), Hx Lung Cancer, Hx Pneumonia, Hx Pulmonary Embolism GI History: Reports: Other GI Disorders - enlarged liver Denies: Hx Gall Bladder Disease, Hx Gastrointestinal Bleed, Hx Ulcer, Hx Urosepsis History: Denies: Hx Kidney Stones, Hx Renal Disease Musculoskeletal History: Reports: Other Musculoskeletal History - bilateral knee pain Denies: Hx Arthritis, Hx Osteoporosis Sensory History: Denies: Hx Contacts or Glasses - needs glasses per pt, Hx Hearing Aid Opthamlomology History: Denies: Hx Contacts or Glasses - needs glasses per pt Neurological History: Denies: Hx Dementia, Hx Migraine, Hx Seizures, Hx Transient Ischemic Attacks (TIA) Psychiatric History: Reports: Hx Anxiety, Hx Depression, Hx Inpatient Treatment , Hx Community Mental Health Tx - [facility], Hx of Violent Episodes Against Others, Hx Substance Abuse, Other Psychiatric Issues/Disorders - schizoaffective disorder Denies: Hx Attention Deficit Hyperactivity Disorder, Hx Eating Disorder, Hx Panic Disorder, Hx Post Traumatic Stress Disorder, Hx Schizophrenia, Hx Bipolar Disorder, Hx Suicide Attempt - Surgical History Surgery Procedure, Year, and Place: fistula removed at [facility] in 2006 Hx Anesthesia Reactions: No Infectious Disease History: Denies: Hx Clostridium Difficile, Hx Hepatitis, Hx Human Immunodeficiency Virus (HIV), Hx of Known/Suspected MRSA, Hx Shingles, Hx Tuberculosis, Hx Known/ Suspected VRE, Hx Known/Suspected VRSA, History Other Infectious Disease - Family History Known Family History: Positive: Other - Positive EtOH dependence to biological parents - Social History Alcohol Use: None Alcohol Amount: 350 ml of vodka - states he quit Hx Substance Use: Yes Substance Use Type: Reports: Marijuana Substance Use Comment - Amount & Last Used: Occasionally- 10 days ag = states no more Hx Tobacco Use: Yes Smoking Status (MU): Light Every Day Tobacco Smoker Type: Cigars Amount Used/How Often: States smoking "1 or 2 cigars a couple of times a week" Length of Time of Smoking/Using Tobacco: 1/2 PPD Have You Smoked in the Last Year: Yes Review of Systems Negative: Fever Positive: Other - SI, visual hallucinations, paranoid when crowded, hostile All Other Systems Reviewed And Are Negative: Yes Physical Exam - Summary Physical Exam Summary: GENERAL: Patient is a well developed and nourished M who is lying comfortable in the stretcher. Patient is not in any acute respiratory distress. HEAD AND FACE: Normocephalic EYES: PERRLA, EOMI x 2. EARS: Hearing grossly intact. MOUTH: Oropharynx within normal limits. NECK: Supple, trachea is midline, no adenopathy, no JVD, no carotid bruit. CHEST: Symmetric, no tenderness at palpation LUNGS: Clear to auscultation bilaterally. No wheezing or crackles. CVS: Regular rate and rhythm, S1 and S2 present, no murmurs or gallops appreciated. ABDOMEN: Soft, non-tender. Bowel sounds are normal. No abdominal abnormal pulsations. EXTREMITIES: Full ROM in all major joints, no edema, no cyanosis or clubbing. NEURO: Alert and oriented x 3. No acute neurological deficits. Speech is normal and follows commands. SKIN: Dry and warm Triage Information Reviewed: Yes Vital Signs On Initial Exam: Initial Vitals Temp Pulse Resp BP Pulse Ox 97.8 F 144 25 122/65 95 05/29/17 21:16 05/29/17 21:16 05/29/17 21:16 05/29/17 21:16 05/29/17 21:16 Vital Signs Reviewed: Yes Diagnostics - Laboratory Result Diagrams: 05/29/17 23:38 05/29/17 23:38 Lab Statement: Any lab studies that have been ordered have been reviewed, and results considered in the medical decision making process. Re-Evaluation - Re-Evaluation First Eval Re-Evaluation Time: 23:25 Comment: Pt resting comfortably. He has no complaints. Course/Dx - Course Assessment/Plan: Work up is remarkable for blood ETOH level of 159, which is otherwise acceptable. When he came in, pt was agitated so he was given B52. Pt is s/o to Dr. Murphy, pending medical clearance for MHE, awaiting alcohol metabolism. Dx: hallucination. - Differential Dx/Clinical Impression Provider Diagnosis: Hallucination Discharge - Sign-Out/Discharge Documenting (check all that apply): Sign-Out Patient - Dr. Murphy Signing out patient TO: Jose Murphy - pending dispo, awiaiting MHE and alcohol metabolism - Discharge Plan Referrals: Magrarita Herman MD [Primary Care Provider] - The documentation as recorded by the Jerica villatoro Nilda accurately reflects the service I personally performed and the decisions made by me, Radames Valencia MD.
== END 2017-05-30 11:52 | disposition home or self-care (01) ==
LOC: ED 21:10
DX: R44.1 Visual hallucinations (principal); R45.851 Suicidal ideations; I48.92 Unspecified atrial flutter; E11.9 Type 2 diabetes mellitus without complications; Z79.4 Long term (current) use of insulin; Z79.84 Long term (current) use of oral hypoglycemic drugs; E07.9 Disorder of thyroid, unspecified; E78.00 Pure hypercholesterolemia, unspecified; I10 Essential (primary) hypertension; J45.909 Unspecified asthma, uncomplicated; F41.9 Anxiety disorder, unspecified; F32.9 Major depressive disorder, single episode, unspecified; F17.290 Nicotine dependence, other tobacco product, uncomplicated
CPT/HCPCS: 36415; 80053; 80307; 80320; 80329; 81003; 84443; 85025; 93005; 99285; A9270-GY; G0480; J1630; J2060

== ENCOUNTER 2017-11-02 11:40 | Inpatient (IN) | payer OTHER ==
--- NOTE | 2017-11-02 12:12 | ED ---
Psychiatric Complaint - HPI Summary HPI Summary: Patient is a 47 y/o M w/ c/o SI. Sx onset 4-5 months ago. He states that he does not want to be alone due to recent emotional stress. Patient states this past weekend he has thought about overdosing on pills and alcohol. He states his mother has been having health problems and there is no one to help her except for himself. Patient also reports that he has been drinking more alcohol recently. He states that he, "Should be on medications for mental health" but he does not take them as he does not experience any relief in Sx. He notes he has been admitted to [facility] a few months ago for psychiatric issues. Patient does not have a therapist. PMHx of self-cutting and self-burning is reported. Patient denies HI. Chest pain and SOB are denied. PMHx of HTN, diabetes, and atrial flutter is reported. Patient is on blood thinners, Eliquis and Metroprolol as well as Metformin. Patient states he has missed Eliquis doses today. He reports recent Hx of ablation. On triage, pain is denied and nothing is noted to aggravate/alleviate Sx. Home medications and allergies are reviewed. - History Of Current Complaint Chief Complaint: EDMentalHealth Time Seen by Provider: 11/02/17 11:52 Hx Obtained From: Patient Onset/Duration: Lasting Weeks - Sx onset 4-5 months ago, Still Present Timing: Constant Severity Currently: None Character: Depressed Aggravating Factor(s): Recent Stress Alleviating Factor(s): Nothing Has Suicidal: Reports: Thoughts, With A Plan Has Homicidal: Denies: Thoughts - Allergies/Home Medications Allergies/Adverse Reactions: Allergies Allergy/AdvReac Type Severity Reaction Status Date / Time cat dander Allergy Eyes Verified 11/02/17 11:46 Itchy/Swollen/Red/Watery Home Medications: Home Medications Apixaban* [Eliquis*] 5 mg PO DAILY 11/02/17 [History Confirmed 11/02/17] PMH/Surg Hx/FS Hx/Imm Hx Endocrine/Hematology History: Reports: Hx Diabetes, Hx Thyroid Disease Denies: Hx Anticoagulant Therapy Cardiovascular History: Reports: Hx Hypercholesterolemia, Hx Hypertension Denies: Hx Congestive Heart Failure, Hx Deep Vein Thrombosis, Hx Myocardial Infarction, Hx Pacemaker/ICD, Hx Peripheral Vascular Disease Respiratory History: Reports: Hx Asthma - He used inhalers when he had bronchitis., Hx Sleep Apnea, Other Respiratory Problems/Disorders - Bronchitis in Mar 2015 Denies: Hx Chronic Obstructive Pulmonary Disease (COPD), Hx Lung Cancer, Hx Pneumonia, Hx Pulmonary Embolism GI History: Reports: Other GI Disorders - enlarged liver Denies: Hx Gall Bladder Disease, Hx Gastrointestinal Bleed, Hx Ulcer, Hx Urosepsis History: Denies: Hx Kidney Stones, Hx Renal Disease Musculoskeletal History: Reports: Other Musculoskeletal History - bilateral knee pain Denies: Hx Arthritis, Hx Osteoporosis Sensory History: Denies: Hx Contacts or Glasses - needs glasses per pt, Hx Hearing Aid Opthamlomology History: Denies: Hx Contacts or Glasses - needs glasses per pt Neurological History: Denies: Hx Dementia, Hx Migraine, Hx Seizures, Hx Transient Ischemic Attacks (TIA) Psychiatric History: Reports: Hx Anxiety, Hx Depression, Hx Inpatient Treatment , Hx Community Mental Health Tx - [facility], Hx of Violent Episodes Against Others, Hx Substance Abuse, Other Psychiatric Issues/Disorders - schizoaffective disorder Denies: Hx Attention Deficit Hyperactivity Disorder, Hx Eating Disorder, Hx Panic Disorder, Hx Post Traumatic Stress Disorder, Hx Schizophrenia, Hx Bipolar Disorder, Hx Suicide Attempt - Surgical History Surgery Procedure, Year, and Place: fistula removed at [facility] in 2006 Hx Anesthesia Reactions: No Infectious Disease History: No Infectious Disease History: Denies: Hx Clostridium Difficile, Hx Hepatitis, Hx Human Immunodeficiency Virus (HIV), Hx of Known/Suspected MRSA, Hx Shingles, Hx Tuberculosis, Hx Known/ Suspected VRE, Hx Known/Suspected VRSA, History Other Infectious Disease, Traveled Outside the [place] in Last 30 Days - Family History Known Family History: Positive: Other - Positive EtOH dependence in biological parents - Social History Alcohol Use: None Alcohol Amount: 350 ml of vodka - states he quit Hx Substance Use: Yes Substance Use Type: Reports: Marijuana Substance Use Comment - Amount & Last Used: Occasionally- 10 days ag = states no more Hx Tobacco Use: Yes Smoking Status (MU): Light Every Day Tobacco Smoker Type: Cigars Amount Used/How Often: States smoking "1 or 2 cigars a couple of times a week" Length of Time of Smoking/Using Tobacco: 1/2 PPD Have You Smoked in the Last Year: Yes Review of Systems Negative: Chest Pain Negative: Shortness Of Breath Positive: Depressed, Other - SI with plan is reported; no HI All Other Systems Reviewed And Are Negative: Yes Physical Exam - Summary Physical Exam Summary: Appearance: Well appearing, no pain distress Skin: warm, dry, reflects adequate perfusion; diaphoretic; cigarette stained fingernails Head/face: normal Eyes: EOMI, [place] ENT: mucous membranes moist Neck: supple, non-tender Respiratory: CTA, breath sounds present Cardiovascular: RRR, pulses symmetrical Abdomen: non-tender, soft Bowel Sounds: present Musculoskeletal: normal, strength/ROM intact Neuro: normal, sensory motor intact, A&Ox3 Psych: flat affect, depressed with SI, no HI Triage Information Reviewed: Yes Vital Signs On Initial Exam: Initial Vitals Temp Pulse Resp BP Pulse Ox 97.3 F 91 16 138/81 95 11/02/17 11:40 11/02/17 11:40 11/02/17 11:40 11/02/17 11:40 11/02/17 11:40 Vital Signs Reviewed: Yes Diagnostics - Vital Signs Vital Signs Temp Pulse Resp BP Pulse Ox 11/02/17 11:40 97.3 F 91 16 138/81 95 - Laboratory Result Diagrams: 11/02/17 12:16 11/02/17 12:16 Lab Statement: Any lab studies that have been ordered have been reviewed, and results considered in the medical decision making process. - EKG 1214 Cardiac Rate: NL - rate of 86 BPM EKG Rhythm: Sinus Rhythm ST Segment: Normal EKG Interpretation: normal axis, normal interval Re-Evaluation - Re-Evaluation First Eval Re-Evaluation Time: 13:05 Comment: Patient medically cleared for MHE, will be sent to flex Course/Dx - Course Course Of Treatment: Patient noncompliant with medical regimen outpatient. He is also having mental health issues. His blood sugar is not that terrible at 272. Restarted Glucophage and Lantus. Also restarted his oral anticoagulant. He is cleared for mental health evaluation. Following mental health evaluation the psychiatrist elected the patient to be admitted for further evaluation and treatment. Stable throughout his course. - Differential Dx/Clinical Impression Differential Diagnosis/HQI/PQRI: Positive: Bipolar Disorder, Depression, Suicidal Ideation Provider Diagnosis: Depression, Noncompliance with medication regimen, Hyperglycemia due to type 2 diabetes mellitus - Physician Notifications Discussed Care Of Patient With: Andrea Puckett Time Discussed With Above Provider: 17:56 Instructed by Provider To: Other - Patient's case was reviewed by Dr. Puckett. Patient will be admitted to [facility]. Dr. Smith is agreeable with this plan. Discharge - Sign-Out/Discharge Documenting (check all that apply): Patient Departure - admit - Discharge Plan Condition: Fair Disposition: PSYCHIATRIC FACILITY-[facility] Referrals: Margarita Herman MD [Primary Care Provider] - - Billing Disposition and Condition Condition: FAIR Disposition: Psychiatric Facility [facility] - Attestation Statements Document Initiated by Scribe: Yes Documenting Scribe: Irvin Kaur Provider For Whom Tienibe is Documenting (Include Credential): Flavio Smith MD Scribe Attestation: I, Irvin Kaur, scribed for Flavio Smith MD on 11/02/17 at 1847. Scribe Documentation Reviewed: Yes Provider Attestation: The documentation as recorded by the Irvin villatoro accurately reflects the service I personally performed and the decisions made by me, Flavio Smith MD
[2017-11-02 12:33] LABS: ABS Basophils 0 10^3/ul (0-0.2); ABS Eosinophils 0.2 10^3/ul (0-0.6); ABS Lymphocytes 1.5 10^3/ul (1.0-4.8); ABS Monocytes 0.4 10^3/ul (0-0.8); ABS Neutrophils 4.6 10^3/ul (1.5-7.7); ABS Nucleated RBC 0 10^3/ul; Eosinophil % 2.4 % (0-6); Hematocrit 46 % (42-52); Lymphocyte % 21.7 % (25-47); Mean Corpuscular HGB Conc 35 g/dl (31-36); Mean Corpuscular Hemoglobin 34 pg (27-31); Mean Corpuscular Volume 98 fL (80-94); Mean Platelet Volume 7.6 um3 (7.4-10.4); Nucleated Red Blood Cells % 0.1; Platelet Count 230 10^3/ul (150-450); Red Blood Count 4.64 10^6/ul (4.00-5.40); Red Cell Distribution Width 14 % (10.5-15); White Blood Count 6.7 10^3/ul (3.5-10.8)
[2017-11-02] MEDS: Apixaban* 5 MG TAB PO SCH ×2 (12:39→21:31)
[2017-11-02 12:46] LABS: EGFR Non-African American 119.9 (>60)
[2017-11-02 12:51] LABS: Urine Appearance Turbid; Urine Blood Negative (Negative); Urine Color Yellow; Urine Ketones Negative (Negative); Urine Protein 1+(30 mg/dL) (Negative); Urine Red Blood Cell 3+(>10/hpf) (Absent); Urine Specific Gravity 1.027 (1.010-1.030); Urine Urobilinogen Negative (Negative); Urine White Blood Cell Absent (Absent)
[2017-11-02] MEDS ORDERED: metFORMIN* 500 MG TAB PO ONE (12:57)
[2017-11-02] MEDS ORDERED: Al Hydrox/Mg Hydrox/Simet LIQ* 30 ML UDC PO PRN (20:42)
[2017-11-02] MEDS ORDERED: Acetaminophen TAB* 325 MG PO PRN (20:42)
[2017-11-02] MEDS ORDERED: traZODone TAB* 50 MG TAB PO PRN (20:43)
[2017-11-02] MEDS: Metoprolol Tartrate TAB* 100 MG TAB PO SCH (21:31)
[2017-11-02] MEDS ORDERED: LORazepam IM 0-6 mg for WAM protocol IM SCH (23:00)
[2017-11-02] MEDS ORDERED: LORazepam PO 0-6 for WAM protocol PO SCH (23:00)
[2017-11-03] MEDS: Lisinopril TAB* 10 MG PO SCH (09:19)
[2017-11-03] MEDS: Atorvastatin* 40 MG TAB PO SCH (09:19)
[2017-11-03] MEDS: Vitamin THERAPEUTIC TAB PO SCH (09:19)
[2017-11-03] MEDS: Thiamine TAB* 100 MG TAB DAILY (@ T+1) PO SCH (09:20)
[2017-11-03] MEDS: Folic Acid TAB* 1 MG DAILY PO SCH (09:20)
[2017-11-03] MEDS: Apixaban* 5 MG TAB PO SCH ×2 (09:20→13:39)
[2017-11-03] MEDS: Metoprolol Tartrate TAB* 100 MG TAB PO SCH ×2 (09:20→21:39)
[2017-11-03] MEDS: Insulin GLARGINE(*) 1 UNITS UNIT SUBCUT SCH (09:21)
[2017-11-03] MEDS ORDERED: Loperamide LIQ* 2 MG/10 ML UDC PO ONE (12:31)
[2017-11-03] MEDS: ARIPiprazole TAB* 5 MG PO SCH (14:08)
[2017-11-03] MEDS: metFORMIN* 500 MG TAB PO SCH (16:55)
[2017-11-03] MEDS ORDERED: traZODone TAB* 50 MG TAB PO SCH (21:00)
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
[2017-11-04] MEDS ORDERED: Levothyroxine TAB* 25 MCG TAB PO SCH (06:00)
[2017-11-04] MEDS: Apixaban* 5 MG TAB PO SCH ×2 (09:19→21:50)
[2017-11-04] MEDS: metFORMIN* 500 MG TAB PO SCH (09:19)
[2017-11-04] MEDS: ARIPiprazole TAB* 5 MG PO SCH (09:21)
[2017-11-04] MEDS: Folic Acid TAB* 1 MG DAILY PO SCH (09:21)
[2017-11-04] MEDS: Insulin GLARGINE(*) 1 UNITS UNIT SUBCUT SCH (09:21)
[2017-11-04] MEDS: Atorvastatin* 40 MG TAB PO SCH (09:21)
[2017-11-04] MEDS: Vitamin THERAPEUTIC TAB PO SCH (09:22)
[2017-11-04] MEDS: Lisinopril TAB* 10 MG PO SCH (09:22)
[2017-11-04] MEDS: Thiamine TAB* 100 MG TAB DAILY (@ T+1) PO SCH (09:22)
[2017-11-04] MEDS: Metoprolol Tartrate TAB* 100 MG TAB PO SCH ×2 (09:22→21:50)
[2017-11-04] MEDS ORDERED: Dextrose 50% Syringe 50 ML* 25 GM/50 ML SYRINGE IV PUSH PRN (12:28)
[2017-11-04] MEDS ORDERED: traZODone TAB* 50 MG TAB PO PRN (12:31)
--- NOTE | 2017-11-04 16:40 | PN ---
Subjective - Subjective Date of Service: 11/04/17 Service Type: 94246 Hosp care 25 min moderate complexity Subjective: Patient presents as dysphoric with irritability. He continues to endorse frustration in regards to his mother's health issues and concern about potential need for assisted living. Patient has been overheard yelling at her on the phone. He reiterates motivation to be more healthy in order to assist her. He states gratitude for her adopting and raising him. During medication education group, patient wxpressed interest in gabapentin for alcohol cravings, as well as pain in feet. Rate Engineer notified him of lab results from this morning. He was seen by hospitalist service Zoey Huertas NP for medical comorbidities. Objective - Appearance Appearance: Obese Dysmorphic Features: Yes Hygiene: Dirty Grooming: Fairly Well Kept - Behavior Psychomotor Activities: Normal Exhibits Abnormal Movement: No - Attitude and Relatedness Attitude and Relatedness: Irritable Eye Contact: Poor - Speech Quality: Unpressured Latencies: Normal Quantity: Appropriate - Mood Patient's Decription of Mood: "Fine" - Affect Observed Affect: Depressed Affect Consistent with: Dysphoria - Thought Process Patient's Thought Process: Circumstantial Thought Content: No Passive Wish, No Suicidal Planning, No Homicidal Ideation, No Paranoid Ideation - Sensorium Experiencing Hallucinations: Yes Type of Hallucinations: Auditory: Yes - Level of Consciousness Level of Consciousness: Alert Orientation: Yes Intact, Yes Orientated to Time, Yes Orientated to Place, Yes Orientated to Person - Impulse Control Impulse Control: Tenuous - Insight and Judgement Insight and Judgement: Poor - Group Participation Particating in Group Activities: Yes - Medication Management Medication Management Adherence: Yes Assessment - Assessment Merits Inpatient Hospitalization: For Immediate Safety, For Stabilization Inpatient DSM-V Dx: F25.1 - schizoaffective d/o, depressed type Clinical Impression: 47yo white male, domiciled, with a history of schizoaffective disorder, alcohol use d/o and poor adherence to outpatient treatment. He stopped taking psychiatric medications and his case was closed at [facility] due to inappropriate behavior and poor adherence. Patient endorses suicidal ideation and has been verbally aggressive in the community. He merits hospitalization for immediate safety and stabilization. Plan - Plan Treatment Plan: Name: NIALL HAYES Birthdate: 1970 [id number] continue acute intensive psychiatric treatment. add gabapentin for alcohol use d/o and anxiety. appreciate hospitalist coverage for diabetes and atrial flutter management. Continued Medication Management: Start Medication Medications: Current Medications Acetaminophen (Tylenol Tab*) 650 mg PO Q4H PRN PRN Reason: PAIN or TEMP > 101 F Al Hydrox/Mg Hydrox/Simethicone (Maalox Plus*) 30 ml PO Q4H PRN PRN Reason: INDIGESTION Apixaban (Eliquis*) 5 mg PO BID [facility] Aripiprazole (Abilify Tab*) 5 mg PO DAILY [facility] Last Admin: 11/04/17 09:21 Dose: 5 mg Atorvastatin Calcium (Lipitor*) 40 mg PO DAILY [facility] Last Admin: 11/04/17 09:21 Dose: 40 mg Dextrose (D50w Syringe 50 Ml*) 12.5 gm IV PUSH .FOR FS < 60 - SS PRN PRN Reason: FS < 60 Folic Acid (Folvite Tab*) 1 mg PO DAILY [facility] Last Admin: 11/04/17 09:21 Dose: 1 mg Gabapentin (Neurontin Cap(*)) 300 mg PO BID [facility] Insulin Glargine (Lantus(*)) 20 units SUBCUT DAILY [facility] Last Admin: 11/04/17 09:21 Dose: 20 unit Insulin Human Lispro (Humalog*) 0 units SUBCUT ACHS [facility]; Protocol Lorazepam (Ativan Tab(*)) 0 - 6 mg PO .PER [facility] PARAMETERS [facility]; Protocol Lorazepam (Ativan Inj*) 0 - 6 mg IM .PER [facility] PROTOCOL [facility]; Protocol Metoprolol Tartrate (Lopressor Tab*) 100 mg PO BID [facility] Last Admin: 11/04/17 09:22 Dose: 100 mg Multivitamins (Theragran Tab*) 1 tab PO DAILY [facility] Last Admin: 11/04/17 09:22 Dose: 1 tab Thiamine HCl (Vitamin B-1 Tab*) 100 mg PO DAILY [facility] Last Admin: 11/04/17 09:22 Dose: 100 mg Trazodone HCl (Desyrel Tab*) 50 mg PO BEDTIME PRN PRN Reason: SLEEP - Discharge Plan Discharge Plan: Outpatient Follow Up Outpatient Program: consider ACT team
--- NOTE | 2017-11-04 16:45 | PN ---
[facility]: Group Therapy Note - Service Type Service Type: [id number] Group Psychotherapy - Medication Education Group: Patient attended group and presented with flat affect that did not vary with discussion. Although responsive to direct prompts to respond to questions, patient did not engage in spontaneous conversation.
[2017-11-04] MEDS: Insulin LISPRO* 1 UNITS UNIT SUBCUT SCH ×2 (17:02→21:46)
--- NOTE | 2017-11-04 21:12 | HP ---
CC: Dr. eHrman; Dr. Andrade HISTORY AND PHYSICAL: DATE OF ADMISSION: 11/02/17 PRIMARY CARE PHYSICIAN: Dr. Herman. CENTRAL SERVICE TECHNICIAN: Dr. Andrade. ATTENDING PHYSICIAN: Dr. Bailon.* (DICTATED BY SAMEERA RATLIFF NP) REFERRING PHYSICIAN: Dr. Pedroza. CHIEF COMPLAINT: Suicidal ideation. 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 Of note, the patient has not been taking his prescribed insulin and has not been taking his Eliquis as directed. He has missed multiple doctor's appointments due to his mother's health problems and because of doctor's office is far from his home. He was admitted to the psych service and the hospitalist team was asked to consult on this patient due to his complicated medical history and recent medication noncompliance. The patient's primary care provider was contacted to determine his appropriate medication regimen and changes to his inpatient meds were based on that information. On exam today, the patient was alert and oriented x3, in no apparent distress. He denies chest pain, palpitations, shortness of breath, headaches, dizziness. He does endorse multiple episodes of diarrhea today that is likely due to metformin, which was started yesterday and has now been discontinued as this is not a home medication. PAST MEDICAL HISTORY: Includes obesity; atrial flutter, status post ablation; diabetes; ETOH dependance; schizoaffective disorder; depression; sleep apnea; hyperlipidemia; and hypothyroidism. PAST SURGICAL HISTORY: Includes atrial ablation in June of 2017 and a fistula removal in 2007. HOME MEDICATIONS: Include: 1. Eliquis 5 mg b.i.d. 2. Metoprolol 100 mg b.i.d. 3. Basaglar insulin 10 at 25 units daily. 4. Aripiprazole 5 mg daily. 5. Zoloft 50 mg daily. 6. Atorvastatin 40 mg daily. 7. Trazodone 50 mg p.r.n. at bedtime. ALLERGIES: The patient has no known drug allergies. FAMILY HISTORY: Unknown as the patient is adopted. SOCIAL HISTORY: The patient endorses smoking 1 pack of cigarettes per day since age 14. He drinks 1 liter of gin every other day and the patient denies illicit drug use. His mother, Cony Rodriguez, will be the surrogate decision maker in the event the patient cannot make any decisions for himself. REVIEW OF SYSTEMS: I performed a 14-point review of systems. All the pertinent positives and negatives are mentioned in the history of present illness. The remaining review of systems are negative. PHYSICAL EXAMINATION GENERAL: The patient is alert, pleasant, and appears to be in no acute distress. VITAL SIGNS: Temperature 98.0, heart rate 79, respiratory rate 16, oxygen saturation 96% on room air, blood pressure 124/66. HEENT: Normocephalic, atraumatic. Pupils are equal and reactive to light. Extraocular movements were intact. NECK: Supple. There is no lymphadenopathy noted. No JVD appreciated. RESPIRATORY: There was no accessory muscle use and lungs were clear to auscultation. CARDIAC: Regular rate and rhythm. S1, S2 present. No murmurs, rubs, or gallops. ABDOMEN: Soft, nontender, nondistended. There are bowel sounds x4. EXTREMITIES: No lower extremity edema. DP and PT pulses were 2+ and symmetric. MUSCULOSKELETAL: There is no clubbing or cyanosis noted. The patient exhibited good strength in all 4 extremities. NEUROLOGIC: The patient is alert and oriented x3. Cranial nerves II through XII were intact. PSYCH: The patient is calm and cooperative. SKIN: There are no rashes or other abnormalities seen. DIAGNOSTIC STUDIES/LAB DATA: Sodium 133, potassium 4, chloride 100, CO2 24, BUN 12, creatinine 0.7, glucose 272, calcium 9.7. White blood cell count 6.7, hemoglobin 16, hematocrit 46, and platelet count 230. He had a urinalysis, which showed +1 protein and +1 glucose. His urine tox screen was negative. The patient had an EKG on admission, which displayed normal sinus rhythm. IMPRESSION: This is a 47-year-old male with a past medical history significant for atrial flutter, status post ablation; diabetes, hyperlipidemia; hypothyroidism; and a complicated psych history including ETOH abuse and schizoaffective disorder, who presented with suicidal ideation and was admitted under the psychiatric service. PLAN: 1. Suicidal ideation. Plan per Psych, continue aripiprazole. 2. ETOH abuse. Plan per Psych, continue thiamine. 3. Atrial flutter, status post ablation in June of 2017. The patient is currently in sinus rhythm. Continue rate control with metoprolol b.i.d. and anticoagulation with Eliquis b.i.d. The patient reports taking Eliquis only once a day; however, per PCP dosing should be b.i.d. The patient has an appointment with his sledger, Dr. Andrade, due to his hospitalization and should follow up. 4. Diabetes. The patient reports not taking prescribed insulin at home for at least 1 month. His hemoglobin A1c is 8.7. Continue glargine daily, which is the home med per PCP, also added lispro sliding scale as fingersticks have been greater than 200. The former was briefly added, but has been discontinued as the patient developed diarrhea and is not a home medication. Continue lisinopril for renal protective effect. 5. Hyperlipidemia. Triglycerides 290, cholesterol 180, LDL 96, HDL 36.8. Continue atorvastatin 40 mg daily. 6. Hypothyroidism. The patient reports history of hypothyroidism; however, PCP does not has Synthroid listed as part of medication regimen, so we have discontinued this med. His TSH was within normal limits at 3.84. 7. Fluids, electrolytes, and nutrition: He is on a carb-consistent diet. 8. Code status: His code status is full. 9. DVT prophylaxis. The patient is ambulatory. DISPOSITION: Per Psych. TIME SPENT: Time for this admission was 60 minutes and 35 minutes were spent with the patient discussing medication, past medical history, and events leading up to the arrival today and performing physical examination. The case has been reviewed with the attending, who has agreed with this plan of care. SAMEERA RATLIFF, SAGAR [id number]/[facility] #: [id number] MTDD
[2017-11-04] MEDS: Gabapentin CAP(*) 300 MG PO SCH (21:50)
[2017-11-05 08:04] LABS: EGFR Non-African American 128.3 (>60)
[2017-11-05] MEDS: Apixaban* 5 MG TAB PO SCH ×2 (08:16→20:07)
[2017-11-05] MEDS: ARIPiprazole TAB* 5 MG PO SCH (08:17)
[2017-11-05] MEDS: Metoprolol Tartrate TAB* 100 MG TAB PO SCH ×2 (08:17→20:08)
[2017-11-05] MEDS: Gabapentin CAP(*) 300 MG PO SCH ×2 (08:17→20:02)
[2017-11-05] MEDS: Folic Acid TAB* 1 MG DAILY PO SCH (08:17)
[2017-11-05] MEDS: Thiamine TAB* 100 MG TAB DAILY (@ T+1) PO SCH (08:17)
[2017-11-05] MEDS: Vitamin THERAPEUTIC TAB PO SCH (08:17)
[2017-11-05] MEDS: Atorvastatin* 40 MG TAB PO SCH (08:17)
[2017-11-05] MEDS: Insulin LISPRO* 1 UNITS UNIT SUBCUT SCH ×6 (08:19→20:05)
[2017-11-05] MEDS: Insulin GLARGINE(*) 1 UNITS UNIT SUBCUT SCH (08:20)
[2017-11-05] MEDS ORDERED: Loperamide LIQ* 2 MG/10 ML UDC PO PRN (10:25)
--- NOTE | 2017-11-05 15:09 | PN ---
Subjective Date of Service: 11/05/17 Interval History: Pt is feeling well. He denies any pain. He states he was surprised by how high his blood sugar was at lunch time. He then states he had pancakes and syrup for breakfast. He is still having some loose stools but took imodium this AM. Objective Active Medications: Acetaminophen (Tylenol Tab*) 650 mg PO Q4H PRN PRN Reason: PAIN or TEMP > 101 F Al Hydrox/Mg Hydrox/Simethicone (Maalox Plus*) 30 ml PO Q4H PRN PRN Reason: INDIGESTION Last Admin: 11/05/17 10:15 Dose: 30 ml Apixaban (Eliquis*) 5 mg PO BID [facility] Last Admin: 11/05/17 08:16 Dose: 5 mg Aripiprazole (Abilify Tab*) 5 mg PO DAILY [facility] Last Admin: 11/05/17 08:17 Dose: 5 mg Atorvastatin Calcium (Lipitor*) 40 mg PO DAILY [facility] Last Admin: 11/05/17 08:17 Dose: 40 mg Dextrose (D50w Syringe 50 Ml*) 12.5 gm IV PUSH .FOR FS < 60 - SS PRN PRN Reason: FS < 60 Folic Acid (Folvite Tab*) 1 mg PO DAILY [facility] Last Admin: 11/05/17 08:17 Dose: 1 mg Gabapentin (Neurontin Cap(*)) 300 mg PO BID [facility] Last Admin: 11/05/17 08:17 Dose: 300 mg Insulin Glargine (Lantus(*)) 20 units SUBCUT DAILY [facility] Last Admin: 11/05/17 08:20 Dose: 20 unit Insulin Human Lispro (Humalog*) 0 units SUBCUT ACHS [facility]; Protocol Last Admin: 11/05/17 13:08 Dose: 15 units Insulin Human Lispro (Humalog*) 4 units SUBCUT AC [facility] Last Admin: 11/05/17 13:07 Dose: 4 units Loperamide HCl (Imodium Liq*) 2 mg PO .SEE ORDER PRN PRN Reason: DIARRHEA Last Admin: 11/05/17 11:44 Dose: 2 mg Metoprolol Tartrate (Lopressor Tab*) 100 mg PO BID [facility] Last Admin: 11/05/17 08:17 Dose: 100 mg Multivitamins (Theragran Tab*) 1 tab PO DAILY [facility] Last Admin: 11/05/17 08:17 Dose: 1 tab Thiamine HCl (Vitamin B-1 Tab*) 100 mg PO DAILY [facility] Last Admin: 11/05/17 08:17 Dose: 100 mg Trazodone HCl (Desyrel Tab*) 50 mg PO BEDTIME PRN PRN Reason: SLEEP Vital Signs - 8 hr 11/05/17 11/05/17 11/05/17 08:00 08:01 08:17 Temperature 97.7 F Pulse Rate 79 Respiratory 16 16 18 Rate Blood Pressure 146/67 (mmHg) O2 Sat by Pulse 97 Oximetry 11/05/17 11/05/17 11/05/17 11:44 13:12 14:00 Temperature Pulse Rate Respiratory 16 16 16 Rate Blood Pressure (mmHg) O2 Sat by Pulse Oximetry 11/05/17 14:17 Temperature Pulse Rate Respiratory 16 Rate Blood Pressure (mmHg) O2 Sat by Pulse Oximetry Oxygen Devices in Use Now: None Appearance: Middle aged obese male sitting in a chair, NAD Eyes: No Scleral Icterus Ears/Nose/Mouth/Throat: Mucous Membranes Moist Respiratory: Symmetrical Chest Expansion and Respiratory Effort, Clear to Auscultation Cardiovascular: NL Sounds; No Murmurs; No JVD, RRR, No Edema Abdominal: NL Sounds; No Tenderness; No Distention - obese Extremities: No Clubbing, Cyanosis Skin: No Nodules or Sclerosis Neurological: Alert and Oriented x 3 Result Diagrams: 11/02/17 12:16 11/05/17 07:26 Microbiology and Other Data: Microbiology 11/02/17 12:02 Urine Culture - Final Urine No Growth (<1,000 CFU/mL) Assess/Plan/Problems-Billing Mr Rodriguez is a 47 yo M who has a h/o atrial flutter and type II DM who presented to the ER suicidal and was admitted to the [facility] for stabilization and treatment. The hospitalist service was asked to consult on the patient for help in management of his chronic medical problems. - Patient Problems (1) Suicidal ideation Current Visit: Yes Status: Acute Code(s): R45.851 - SUICIDAL IDEATIONS SNOMED Code(s): 3645738 Comment: Management per psychiatry. (2) Type II diabetes mellitus Current Visit: Yes Status: Acute Comment: The patient's sugars have fluctuated quite a bit. His noon sugar today was quite high but likely reflective of his breakfast. Will continue lantus 20 units daily (pt takes basaglar at home) and add lispro 4 units with meals in addition to the sliding scale. Continue lisinopril for its nephroprotective properties. (3) Atrial flutter Current Visit: Yes Status: Acute Code(s): I48.92 - UNSPECIFIED ATRIAL FLUTTER SNOMED Code(s): 2611568 Comment: HR regular today. Continue metoprolol 100mg BID and eliquis 5mg BID. (4) Morbid obesity with BMI of 40.0-44.9, adult Current Visit: Yes Status: Chronic Code(s): E66.01 - MORBID (SEVERE) OBESITY DUE TO EXCESS CALORIES; Z68.41 - BODY MASS INDEX (BMI) 40.0-44.9, ADULT SNOMED Code(s): 408500313 Comment: BMI up to 46.2- dietitian consult for DM pending.
[2017-11-05] MEDS ORDERED: ARIPiprazole TAB* 5 MG PO ONE (15:23)
--- NOTE | 2017-11-05 15:23 | PN ---
Assessment - Assessment Inpatient DSM-V Dx: F25.1 - schizoaffective d/o, depressed type Clinical Impression: 47yo white male, domiciled, with a history of schizoaffective disorder, alcohol use d/o and poor adherence to outpatient treatment. He stopped taking psychiatric medications and his case was closed at [facility] due to inappropriate behavior and poor adherence. Patient endorses suicidal ideation and has been verbally aggressive in the community. He merits hospitalization for immediate safety and stabilization. Plan - Plan Treatment Plan: Name: NIALL HAYES Birthdate: 1970 [id number] continue acute intensive psychiatric treatment. add gabapentin for alcohol use d/o and anxiety. appreciate hospitalist coverage for diabetes and atrial flutter management. Medications: Current Medications Acetaminophen (Tylenol Tab*) 650 mg PO Q4H PRN PRN Reason: PAIN or TEMP > 101 F Al Hydrox/Mg Hydrox/Simethicone (Maalox Plus*) 30 ml PO Q4H PRN PRN Reason: INDIGESTION Last Admin: 11/05/17 10:15 Dose: 30 ml Apixaban (Eliquis*) 5 mg PO BID [facility] Last Admin: 11/05/17 08:16 Dose: 5 mg Aripiprazole (Abilify Tab*) 5 mg PO DAILY [facility] Last Admin: 11/05/17 08:17 Dose: 5 mg Atorvastatin Calcium (Lipitor*) 40 mg PO DAILY [facility] Last Admin: 11/05/17 08:17 Dose: 40 mg Dextrose (D50w Syringe 50 Ml*) 12.5 gm IV PUSH .FOR FS < 60 - SS PRN PRN Reason: FS < 60 Folic Acid (Folvite Tab*) 1 mg PO DAILY [facility] Last Admin: 11/05/17 08:17 Dose: 1 mg Gabapentin (Neurontin Cap(*)) 300 mg PO BID [facility] Last Admin: 11/05/17 08:17 Dose: 300 mg Insulin Glargine (Lantus(*)) 20 units SUBCUT DAILY [facility] Last Admin: 11/05/17 08:20 Dose: 20 unit Insulin Human Lispro (Humalog*) 0 units SUBCUT ACHS [facility]; Protocol Last Admin: 11/05/17 13:08 Dose: 15 units Insulin Human Lispro (Humalog*) 4 units SUBCUT AC [facility] Last Admin: 11/05/17 13:07 Dose: 4 units Loperamide HCl (Imodium Liq*) 2 mg PO .SEE ORDER PRN PRN Reason: DIARRHEA Last Admin: 11/05/17 11:44 Dose: 2 mg Metoprolol Tartrate (Lopressor Tab*) 100 mg PO BID [facility] Last Admin: 11/05/17 08:17 Dose: 100 mg Multivitamins (Theragran Tab*) 1 tab PO DAILY [facility] Last Admin: 11/05/17 08:17 Dose: 1 tab Thiamine HCl (Vitamin B-1 Tab*) 100 mg PO DAILY [facility] Last Admin: 11/05/17 08:17 Dose: 100 mg Trazodone HCl (Desyrel Tab*) 50 mg PO BEDTIME PRN PRN Reason: SLEEP
[2017-11-06] MEDS: Folic Acid TAB* 1 MG DAILY PO SCH (07:55)
[2017-11-06] MEDS: Thiamine TAB* 100 MG TAB DAILY (@ T+1) PO SCH (07:55)
[2017-11-06] MEDS: Metoprolol Tartrate TAB* 100 MG TAB PO SCH ×2 (07:55→21:18)
[2017-11-06] MEDS: Gabapentin CAP(*) 300 MG PO SCH ×2 (07:55→21:18)
[2017-11-06] MEDS: Apixaban* 5 MG TAB PO SCH ×2 (07:56→21:17)
[2017-11-06] MEDS: ARIPiprazole TAB* 5 MG PO SCH (07:56)
[2017-11-06] MEDS: Atorvastatin* 40 MG TAB PO SCH (07:56)
[2017-11-06] MEDS: Vitamin THERAPEUTIC TAB PO SCH (07:56)
[2017-11-06] MEDS: Insulin GLARGINE(*) 1 UNITS UNIT SUBCUT SCH (07:58)
[2017-11-06] MEDS: Insulin LISPRO* 1 UNITS UNIT SUBCUT SCH ×7 (07:58→21:43)
--- NOTE | 2017-11-06 08:25 | PN ---
Subjective - Subjective Date of Service: 11/05/17 Service Type: 62014 Hosp care 15 min low complexity Subjective: Late entry for 11/05/17 due to note cancelled in error: Patient sitting at table reading about programs at [facility]. During conversation, fingerstick performed by RN, noted to be 422. Patient educated about carbs as he had pancakes and syrup for breakfast. Patient reports improved sleep and feeling rested. He has not scored on WAM protocol and denies symptoms of alcohol withdrawal. He denies cravings to drink alcohol in this setting. We discuss the detrimental effects of combination of alcohol use, poor diabetes management and mood. He states that he does NOT want to attend outpatient treatment at [facility] or [facility]. He states he would be willing to return to [facility] and attend [facility] groups. He is concerned about being able to attend follow up appointments with his PCP, attributing failed appointments to his mother's health. Jumpbasting Machine Operator gives him information about a primary care office within walking distance from his apartment. He is instructed to call office to inquire about new patients and insurance. Jumpbasting Machine Operator will reach out to [facility] to inquire about potential services. Objective - Appearance Appearance: Obese Dysmorphic Features: Yes Hygiene: Dirty Grooming: Fairly Well Kept - Behavior Psychomotor Activities: Normal Exhibits Abnormal Movement: No - Attitude and Relatedness Attitude and Relatedness: Irritable Eye Contact: Poor - Speech Quality: Unpressured Latencies: Normal Quantity: Appropriate - Mood Patient's Decription of Mood: "Fine" - Affect Observed Affect: Depressed Affect Consistent with: Dysphoria - Thought Process Patient's Thought Process: Circumstantial Thought Content: Yes Passive Wish, Yes Paranoid Ideation, No Suicidal Planning, No Homicidal Ideation - Sensorium Experiencing Hallucinations: No, Sensorium is Clear Type of Hallucinations: Visual: No, Auditory: No, Command: No - Level of Consciousness Level of Consciousness: Alert Assessment - Assessment Merits Inpatient Hospitalization: For Immediate Safety, For Stabilization, Consolidate Improvements Inpatient DSM-V Dx: F25.1 - schizoaffective d/o, depressed type Clinical Impression: 47yo white male, domiciled, with a history of schizoaffective disorder, alcohol use d/o and poor adherence to outpatient treatment. He stopped taking psychiatric medications and his case was closed at [facility] due to inappropriate behavior and poor adherence. Patient endorses suicidal ideation and has been verbally aggressive in the community. He merits hospitalization for immediate safety and stabilization. Plan - Plan Treatment Plan: Name: NIALL HAYES Birthdate: 1970 [id number] continue acute intensive psychiatric treatment. may decrease to q30min and allow staff pass. increase aripiprazole. DC [facility] protocol. appreciate hospitalist coverage for medical comorbidities. Continued Medication Management: Start Medication Medications: Current Medications Acetaminophen (Tylenol Tab*) 650 mg PO Q4H PRN PRN Reason: PAIN or TEMP > 101 F Al Hydrox/Mg Hydrox/Simethicone (Maalox Plus*) 30 ml PO Q4H PRN PRN Reason: INDIGESTION Last Admin: 11/05/17 10:15 Dose: 30 ml Apixaban (Eliquis*) 5 mg PO BID [facility] Last Admin: 11/06/17 07:56 Dose: 5 mg Aripiprazole (Abilify Tab*) 10 mg PO DAILY [facility] Last Admin: 11/06/17 07:56 Dose: 10 mg Atorvastatin Calcium (Lipitor*) 40 mg PO DAILY [facility] Last Admin: 11/06/17 07:56 Dose: 40 mg Dextrose (D50w Syringe 50 Ml*) 12.5 gm IV PUSH .FOR FS < 60 - SS PRN PRN Reason: FS < 60 Folic Acid (Folvite Tab*) 1 mg PO DAILY [facility] Last Admin: 11/06/17 07:55 Dose: 1 mg Gabapentin (Neurontin Cap(*)) 300 mg PO BID [facility] Last Admin: 11/06/17 07:55 Dose: 300 mg Insulin Glargine (Lantus(*)) 20 units SUBCUT DAILY [facility] Last Admin: 11/06/17 07:58 Dose: 20 unit Insulin Human Lispro (Humalog*) 0 units SUBCUT ACHS [facility]; Protocol Last Admin: 11/06/17 07:58 Dose: 3 units Insulin Human Lispro (Humalog*) 4 units SUBCUT AC [facility] Last Admin: 11/06/17 07:58 Dose: 4 units Loperamide HCl (Imodium Liq*) 2 mg PO .SEE ORDER PRN PRN Reason: DIARRHEA Last Admin: 11/05/17 11:44 Dose: 2 mg Metoprolol Tartrate (Lopressor Tab*) 100 mg PO BID [facility] Last Admin: 11/06/17 07:55 Dose: 100 mg Multivitamins (Theragran Tab*) 1 tab PO DAILY [facility] Last Admin: 11/06/17 07:56 Dose: 1 tab Thiamine HCl (Vitamin B-1 Tab*) 100 mg PO DAILY [facility] Last Admin: 11/06/17 07:55 Dose: 100 mg Trazodone HCl (Desyrel Tab*) 50 mg PO BEDTIME PRN PRN Reason: SLEEP Last Admin: 11/05/17 20:08 Dose: 50 mg - Discharge Plan Discharge Plan: Outpatient Follow Up Outpatient Program: consider [facility]
--- NOTE | 2017-11-06 15:06 | PN ---
Subjective - Subjective Date of Service: 11/06/17 Service Type: 40471 Hosp care 25 min moderate complexity Subjective: Patient reports his mood is "same as yesterday." He denies side effects from recent medication changes. He states he is feeling more rested and motivated. He continues to endorse mild irritability. He made phone calls to [facility] and [facility] to inquire about insurance coverage. He agrees to allow publications writer to contact [facility] for care coordination post discharge. He denies COFFMAN of aripiprazole citing that he takes medications daily anyway. He is agreeable to screening by [facility] team on thursday. Objective - Appearance Appearance: Obese Dysmorphic Features: Yes Hygiene: Dirty Grooming: Disheveled - Behavior Psychomotor Activities: Normal Exhibits Abnormal Movement: No - Attitude and Relatedness Attitude and Relatedness: Irritable Eye Contact: Fair - Speech Quality: Unpressured Latencies: Normal Quantity: Appropriate - Mood Patient's Decription of Mood: "same as yesterday" - Affect Observed Affect: Depressed Affect Consistent with: Dysphoria - Thought Process Patient's Thought Process: Circumstantial Thought Content: Yes Passive Wish, No Suicidal Planning, No Homicidal Ideation, No Paranoid Ideation - Sensorium Experiencing Hallucinations: No, Sensorium is Clear Type of Hallucinations: Visual: No, Auditory: No, Command: No - Level of Consciousness Level of Consciousness: Alert Orientation: Yes Intact, Yes Orientated to Time, Yes Orientated to Place, Yes Orientated to Person - Impulse Control Impulse Control: Tenuous - Insight and Judgement Insight and Judgement: Poor - Group Participation Particating in Group Activities: No - Medication Management Medication Management Adherence: Yes Assessment - Assessment Merits Inpatient Hospitalization: For Immediate Safety, For Stabilization, Pending Safe DC Plan Inpatient DSM-V Dx: F25.1 - schizoaffective d/o, depressed type Clinical Impression: 47yo white male, domiciled, with a history of schizoaffective disorder, alcohol use d/o and poor adherence to outpatient treatment. He stopped taking psychiatric medications and his case was closed at [facility] due to inappropriate behavior and poor adherence. Patient endorses suicidal ideation and has been verbally aggressive in the community. He merits hospitalization for immediate safety and stabilization. Plan - Plan Treatment Plan: Name: NIALL HAYES Birthdate: 1970 [id number] continue acute intensive psychiatric treatment. may decrease to q30min and allow staff pass. increase aripiprazole. DC [facility] protocol. appreciate hospitalist coverage for medical comorbidities. utilize [facility] for care coordination. Continued Medication Management: Start Medication Medications: Current Medications Acetaminophen (Tylenol Tab*) 650 mg PO Q4H PRN PRN Reason: PAIN or TEMP > 101 F Al Hydrox/Mg Hydrox/Simethicone (Maalox Plus*) 30 ml PO Q4H PRN PRN Reason: INDIGESTION Last Admin: 11/05/17 10:15 Dose: 30 ml Apixaban (Eliquis*) 5 mg PO BID [facility] Last Admin: 11/06/17 07:56 Dose: 5 mg Aripiprazole (Abilify Tab*) 10 mg PO DAILY [facility] Last Admin: 11/06/17 07:56 Dose: 10 mg Atorvastatin Calcium (Lipitor*) 40 mg PO DAILY [facility] Last Admin: 11/06/17 07:56 Dose: 40 mg Dextrose (D50w Syringe 50 Ml*) 12.5 gm IV PUSH .FOR FS < 60 - SS PRN PRN Reason: FS < 60 Folic Acid (Folvite Tab*) 1 mg PO DAILY [facility] Last Admin: 11/06/17 07:55 Dose: 1 mg Gabapentin (Neurontin Cap(*)) 300 mg PO BID [facility] Last Admin: 11/06/17 07:55 Dose: 300 mg Insulin Glargine (Lantus(*)) 24 units SUBCUT DAILY [facility] Insulin Human Lispro (Humalog*) 0 units SUBCUT ACHS [facility]; Protocol Last Admin: 11/06/17 11:49 Dose: 3 units Insulin Human Lispro (Humalog*) 5 units SUBCUT AC [facility] Loperamide HCl (Imodium Liq*) 2 mg PO .SEE ORDER PRN PRN Reason: DIARRHEA Last Admin: 11/05/17 11:44 Dose: 2 mg Metoprolol Tartrate (Lopressor Tab*) 100 mg PO BID [facility] Last Admin: 11/06/17 07:55 Dose: 100 mg Multivitamins (Theragran Tab*) 1 tab PO DAILY [facility] Last Admin: 11/06/17 07:56 Dose: 1 tab Thiamine HCl (Vitamin B-1 Tab*) 100 mg PO DAILY [facility] Last Admin: 11/06/17 07:55 Dose: 100 mg Trazodone HCl (Desyrel Tab*) 50 mg PO BEDTIME PRN PRN Reason: SLEEP Last Admin: 11/05/17 20:08 Dose: 50 mg - Discharge Plan Discharge Plan: Outpatient Follow Up Outpatient Program: [facility]
--- NOTE | 2017-11-06 15:36 | PN ---
Subjective Date of Service: 11/06/17 Interval History: Patient states he is motivated to exercise, eat healthy, take his meds, and not drink. Objective Active Medications: Acetaminophen (Tylenol Tab*) 650 mg PO Q4H PRN PRN Reason: PAIN or TEMP > 101 F Al Hydrox/Mg Hydrox/Simethicone (Maalox Plus*) 30 ml PO Q4H PRN PRN Reason: INDIGESTION Last Admin: 11/05/17 10:15 Dose: 30 ml Apixaban (Eliquis*) 5 mg PO BID [facility] Last Admin: 11/06/17 07:56 Dose: 5 mg Aripiprazole (Abilify Tab*) 10 mg PO DAILY [facility] Last Admin: 11/06/17 07:56 Dose: 10 mg Atorvastatin Calcium (Lipitor*) 40 mg PO DAILY [facility] Last Admin: 11/06/17 07:56 Dose: 40 mg Dextrose (D50w Syringe 50 Ml*) 12.5 gm IV PUSH .FOR FS < 60 - SS PRN PRN Reason: FS < 60 Folic Acid (Folvite Tab*) 1 mg PO DAILY [facility] Last Admin: 11/06/17 07:55 Dose: 1 mg Gabapentin (Neurontin Cap(*)) 300 mg PO BID [facility] Last Admin: 11/06/17 07:55 Dose: 300 mg Insulin Glargine (Lantus(*)) 24 units SUBCUT DAILY [facility] Insulin Human Lispro (Humalog*) 0 units SUBCUT ACHS [facility]; Protocol Last Admin: 11/06/17 11:49 Dose: 3 units Insulin Human Lispro (Humalog*) 5 units SUBCUT AC [facility] Loperamide HCl (Imodium Liq*) 2 mg PO .SEE ORDER PRN PRN Reason: DIARRHEA Last Admin: 11/05/17 11:44 Dose: 2 mg Metoprolol Tartrate (Lopressor Tab*) 100 mg PO BID [facility] Last Admin: 11/06/17 07:55 Dose: 100 mg Multivitamins (Theragran Tab*) 1 tab PO DAILY [facility] Last Admin: 11/06/17 07:56 Dose: 1 tab Thiamine HCl (Vitamin B-1 Tab*) 100 mg PO DAILY [facility] Last Admin: 11/06/17 07:55 Dose: 100 mg Trazodone HCl (Desyrel Tab*) 50 mg PO BEDTIME PRN PRN Reason: SLEEP Last Admin: 11/05/17 20:08 Dose: 50 mg Vital Signs - 8 hr 11/06/17 11/06/17 11/06/17 07:37 07:55 09:55 Temperature 97.7 F Pulse Rate 73 Respiratory 18 18 18 Rate Blood Pressure 142/82 (mmHg) O2 Sat by Pulse 94 Oximetry 11/06/17 11:20 Temperature Pulse Rate Respiratory 18 Rate Blood Pressure (mmHg) O2 Sat by Pulse Oximetry Oxygen Devices in Use Now: None Appearance: Alert, sitting at table with myself and a nurse. Eyes: No Scleral Icterus Extremities: No Edema, No Clubbing, Cyanosis, - Skin: No Rash or Ulcers, No Nodules or Sclerosis, - Neurological: Alert and Oriented x 3 Result Diagrams: 11/02/17 12:16 11/05/17 07:26 Microbiology and Other Data: Microbiology 11/02/17 12:02 Urine Culture - Final Urine No Growth (<1,000 CFU/mL) Assess/Plan/Problems-Billing Mr Rodriguez is a 47 yo M who has a h/o atrial flutter and type II DM who presented to the ER suicidal and was admitted to the MHU for stabilization and treatment. The hospitalist service was asked to consult on the patient for help in management of his chronic medical problems. - Patient Problems (1) Type II diabetes mellitus Current Visit: Yes Status: Acute Comment: I phoned in his Trumetrix glucometer, lancets, teststrips to [facility], also needles and low dose syringes. I entered a consult for diabetic education. He will get a referral to an front end alignment specialist as well. I talked to him about the need to monitor his FS glucose, follow his diet, atake all his meds regularly, exercise. He will fup with Dr. Herman also. He states he is motivated. (2) Hypothyroidism Current Visit: Yes Status: Acute Code(s): E03.9 - HYPOTHYROIDISM, UNSPECIFIED SNOMED Code(s): 88377307 Comment: TSH 3.78 04/24/17. Not clear if he ever had hypothyroidism, all prior TSH in our system are wnl. Suggest repeat TSH in 3 weeks. (3) Alcohol use disorder, severe, dependence Current Visit: No Status: Acute Priority: High Onset Date: 08/15/14 Code (s): F10.20 - ALCOHOL DEPENDENCE, UNCOMPLICATED SNOMED Code(s): 331922985 Comment: Pt states he is motivated to quit drinking. (4) Schizoaffective disorder Current Visit: No Status: Suspected Priority: High Onset Date: 08/15/14 Code(s): F25.9 - SCHIZOAFFECTIVE DISORDER, UNSPECIFIED SNOMED Code(s): 64959495 Comment: Tx per Psychiatry. (5) Atrial flutter Current Visit: Yes Status: Acute Code(s): I48.92 - UNSPECIFIED ATRIAL FLUTTER SNOMED Code(s): 3699312 Comment: HR regular today. Continue metoprolol 100mg BID and eliquis 5mg BID. (6) Morbid obesity Current Visit: Yes Status: Acute Code(s): E66.01 - MORBID (SEVERE) OBESITY DUE TO EXCESS CALORIES SNOMED Code(s): 980704894 Comment: BMI 46.2
[2017-11-07] MEDS: Insulin LISPRO* 1 UNITS UNIT SUBCUT SCH ×7 (08:07→20:34)
[2017-11-07] MEDS: Apixaban* 5 MG TAB PO SCH ×2 (09:04→20:32)
[2017-11-07] MEDS: Gabapentin CAP(*) 300 MG PO SCH ×2 (09:05→20:32)
[2017-11-07] MEDS: Folic Acid TAB* 1 MG DAILY PO SCH (09:05)
[2017-11-07] MEDS: Atorvastatin* 40 MG TAB PO SCH (09:05)
[2017-11-07] MEDS: ARIPiprazole TAB* 5 MG PO SCH (09:05)
[2017-11-07] MEDS: Vitamin THERAPEUTIC TAB PO SCH (09:06)
[2017-11-07] MEDS: Metoprolol Tartrate TAB* 100 MG TAB PO SCH ×2 (09:06→20:33)
[2017-11-07] MEDS: Thiamine TAB* 100 MG TAB DAILY (@ T+1) PO SCH (09:06)
[2017-11-07] MEDS: Insulin GLARGINE(*) 1 UNITS UNIT SUBCUT SCH (09:07)
--- NOTE | 2017-11-07 13:43 | PN ---
Subjective - Subjective Date of Service: 11/07/17 Service Type: 35450 Hosp care 15 min low complexity Subjective: Elias is seen in weekend coverage for NPP, [place]. He appears to be in good spirits and requests computer privileges to check his email in preparation for going home on Thursday. He denies SI and is tolerating his medications well. I'm told his AM blood glucose was well over 300 and he required sliding scale insulin for this. The hospitalist service is managing this issue. Elias has no complaints and staff report that he has been adhering with unit expectations. Objective - Appearance Appearance: Obese Dysmorphic Features: No Hygiene: Normal Grooming: Well Kept - Behavior Psychomotor Activities: Normal Exhibits Abnormal Movement: No - Attitude and Relatedness Attitude and Relatedness: Cooperative Eye Contact: Good - Speech Quality: Unpressured Latencies: Normal Quantity: Appropriate - Mood Patient's Decription of Mood: "Good" - Affect Observed Affect: Good Affect Consistent with: Euthymia - Thought Process Patient's Thought Process: Coherent Thought Content: No Passive Wish, No Suicidal Planning, No Homicidal Ideation, No Paranoid Ideation - Sensorium Experiencing Hallucinations: No, Sensorium is Clear Type of Hallucinations: Visual: No, Auditory: No, Command: No - Level of Consciousness Level of Consciousness: Alert Orientation: Yes Intact, Yes Orientated to Time, Yes Orientated to Place, Yes Orientated to Person - Impulse Control Impulse Control: Tenuous - Insight and Judgement Insight and Judgement: Fair - Group Participation Particating in Group Activities: Yes - Medication Management Medication Management Adherence: Yes Assessment - Assessment Merits Inpatient Hospitalization: Consolidate Improvements, Pending Safe DC Plan Inpatient DSM-V Dx: F25.1 - schizoaffective d/o, depressed type Clinical Impression: 47yo white male, domiciled, with a history of schizoaffective disorder, alcohol use d/o and poor adherence to outpatient treatment. He stopped taking psychiatric medications and his case was closed at [facility] due to inappropriate behavior and poor adherence. Patient endorses suicidal ideation and has been verbally aggressive in the community. He merits hospitalization for immediate safety and stabilization. Plan - Plan Treatment Plan: Name: ELIAS HAYES Birthdate: 1970 [id number] The patient has been resumed on his previous outpatient regimen, including gabapentin 300mg PO BID, trazodone 50mg PO qhs and aripiprazole 10mg PO qday. He is improving and is pending discharge to home on November 09. Appreciate Hospitalist input. Continued Medication Management: Start Medication Medications: Current Medications Acetaminophen (Tylenol Tab*) 650 mg PO Q4H PRN PRN Reason: PAIN or TEMP > 101 F Al Hydrox/Mg Hydrox/Simethicone (Maalox Plus*) 30 ml PO Q4H PRN PRN Reason: INDIGESTION Last Admin: 11/05/17 10:15 Dose: 30 ml Apixaban (Eliquis*) 5 mg PO BID [facility] Last Admin: 11/07/17 09:04 Dose: 5 mg Aripiprazole (Abilify Tab*) 10 mg PO DAILY [facility] Last Admin: 11/07/17 09:05 Dose: 10 mg Atorvastatin Calcium (Lipitor*) 40 mg PO DAILY [facility] Last Admin: 11/07/17 09:05 Dose: 40 mg Dextrose (D50w Syringe 50 Ml*) 12.5 gm IV PUSH .FOR FS < 60 - SS PRN PRN Reason: FS < 60 Folic Acid (Folvite Tab*) 1 mg PO DAILY [facility] Last Admin: 11/07/17 09:05 Dose: 1 mg Gabapentin (Neurontin Cap(*)) 300 mg PO BID [facility] Last Admin: 11/07/17 09:05 Dose: 300 mg Insulin Glargine (Lantus(*)) 24 units SUBCUT DAILY [facility] Last Admin: 11/07/17 09:07 Dose: 24 units Insulin Human Lispro (Humalog*) 0 units SUBCUT ACHS [facility]; Protocol Last Admin: 11/07/17 11:50 Dose: 15 units Insulin Human Lispro (Humalog*) 6 units SUBCUT AC [facility] Last Admin: 11/07/17 11:49 Dose: 6 units Loperamide HCl (Imodium Liq*) 2 mg PO .SEE ORDER PRN PRN Reason: DIARRHEA Last Admin: 11/05/17 11:44 Dose: 2 mg Metoprolol Tartrate (Lopressor Tab*) 100 mg PO BID [facility] Last Admin: 11/07/17 09:06 Dose: 100 mg Multivitamins (Theragran Tab*) 1 tab PO DAILY [facility] Last Admin: 11/07/17 09:06 Dose: 1 tab Thiamine HCl (Vitamin B-1 Tab*) 100 mg PO DAILY [facility] Last Admin: 11/07/17 09:06 Dose: 100 mg Trazodone HCl (Desyrel Tab*) 50 mg PO BEDTIME PRN PRN Reason: SLEEP Last Admin: 11/05/17 20:08 Dose: 50 mg - Discharge Plan Discharge Plan: Outpatient Follow Up Outpatient Program: [facility] Lab Results - Lab Results Lab Results: 11/04/17 11/04/17 11/05/17 16:44 21:43 07:26 Sodium 136 Potassium 4.3 Chloride 103 Carbon Dioxide 25 Anion Gap 8 BUN 18 Creatinine 0.66 L Est GFR ( Amer) 155.2 Est GFR (Non-Af Amer) 128.3 BUN/Creatinine Ratio 27.3 H Glucose 187 H POC Glucose (mg/dL) 168 H 239 H Calcium 9.2 11/05/17 11/05/17 11/05/17 07:46 11:59 12:31 Sodium Potassium Chloride Carbon Dioxide Anion Gap BUN Creatinine Est GFR ( Amer) Est GFR (Non-Af Amer) BUN/Creatinine Ratio Glucose 378 H POC Glucose (mg/dL) 172 H 422 H* Calcium 11/05/17 11/05/17 11/05/17 14:09 16:37 20:00 Sodium Potassium Chloride Carbon Dioxide Anion Gap BUN Creatinine Est GFR ( Amer) Est GFR (Non-Af Amer) BUN/Creatinine Ratio Glucose POC Glucose (mg/dL) 174 H 124 H 183 H Calcium 11/06/17 07:49 Sodium Potassium Chloride Carbon Dioxide Anion Gap BUN Creatinine Est GFR ( Amer) Est GFR (Non-Af Amer) BUN/Creatinine Ratio Glucose POC Glucose (mg/dL) 169 H Calcium
[2017-11-08] MEDS: Apixaban* 5 MG TAB PO SCH ×2 (07:56→19:59)
[2017-11-08] MEDS: ARIPiprazole TAB* 5 MG PO SCH (07:56)
[2017-11-08] MEDS: Folic Acid TAB* 1 MG DAILY PO SCH (07:57)
[2017-11-08] MEDS: Atorvastatin* 40 MG TAB PO SCH (07:57)
[2017-11-08] MEDS: Gabapentin CAP(*) 300 MG PO SCH ×2 (07:57→19:59)
[2017-11-08] MEDS: Metoprolol Tartrate TAB* 100 MG TAB PO SCH ×2 (07:58→20:00)
[2017-11-08] MEDS: Thiamine TAB* 100 MG TAB DAILY (@ T+1) PO SCH (07:59)
[2017-11-08] MEDS: Vitamin THERAPEUTIC TAB PO SCH (07:59)
[2017-11-08] MEDS: Insulin GLARGINE(*) 1 UNITS UNIT SUBCUT SCH (08:00)
[2017-11-08] MEDS: Insulin LISPRO* 1 UNITS UNIT SUBCUT SCH ×7 (08:01→19:57)
[2017-11-09] MEDS: Insulin GLARGINE(*) 1 UNITS UNIT SUBCUT SCH (07:59)
[2017-11-09] MEDS: Insulin LISPRO* 1 UNITS UNIT SUBCUT SCH ×4 (08:00→12:03)
[2017-11-09] MEDS: ARIPiprazole TAB* 5 MG PO SCH (08:02)
[2017-11-09] MEDS: Apixaban* 5 MG TAB PO SCH (08:02)
[2017-11-09] MEDS: Atorvastatin* 40 MG TAB PO SCH (08:03)
[2017-11-09] MEDS: Gabapentin CAP(*) 300 MG PO SCH (08:03)
[2017-11-09] MEDS: Vitamin THERAPEUTIC TAB PO SCH (08:03)
[2017-11-09] MEDS: Metoprolol Tartrate TAB* 100 MG TAB PO SCH (08:03)
[2017-11-09] MEDS: Folic Acid TAB* 1 MG DAILY PO SCH (08:04)
[2017-11-09] MEDS: Thiamine TAB* 100 MG TAB DAILY (@ T+1) PO SCH (08:04)
[2017-11-09 08:24] VITALS: BP 132/74
--- NOTE | 2017-11-09 11:01 | CONSULT ---
Consult Consult: [facility] Inpatient Consult Note Date of Consult: 11/09/17 Reason for Consult: type 2 diabetes Reason for Admission: SI ASSESSMENT: 47 yo M with inadequately-controlled T2DM (A1c 8.7%) after discontinuation of diabetes medications, who presented to [facility] on 11/05/17 with thoughts of self-harm and hyperglycemia >400 mg/dL. His hyperglycemia has improved with insulin "basal plus" insulin regimen this admission. His insulin requirement is estimated to be 50-60 units/day or approximately 0.4units/kg/ day. Notably, he has been able to achieve glycemic control with lower doses of insulin in the past. He will be discharged on a basal/bolus insulin regimen for home use. I am uncertain of his ability to manage his blood glucose with multi dose insulin, however, and would encourage the use of insulin-sparing therapies such as metformin, pioglitazone or ertugliflozin, all of which are covered by his insurance. PLAN: - increase Basaglar (glargine) to 30 units once daily - increase Humalog (lispro) to 10 units with meals until follow-up with Dr. Herman - avoid sliding scale insulin coverage unless dose-finding is needed - consider discontinuation if daytime BG<200 - encourage fingerstick monitoring of BG prior to every insulin injection - continue atorvastatin 40mg daily - patient is aware of need for reduced-carbohydrate diet - recommend metformin ER 1000mg once daily for diabetes - recommend initiation of Steglatro 5mg once daily for diabetes - consider addition of ezetimibe 10mg daily for cholesterol SUBJECTIVE: History of Present Illness: Past Medical History: - AF s/p ablation - HTN - BMI >45 - T2DM - mixed mood/thought disorder Medications Prior to Admission: - trazodone - sertraline - Abilify - insulin glargine 25 units/day - atorvastatin 40mg - Eliquis - metoprolol Inpatient Medications: Acetaminophen (Tylenol Tab*) 650 mg PO Q4H PRN PRN Reason: PAIN or TEMP > 101 F Al Hydrox/Mg Hydrox/Simethicone (Maalox Plus*) 30 ml PO Q4H PRN PRN Reason: INDIGESTION Last Admin: 11/05/17 10:15 Dose: 30 ml Apixaban (Eliquis*) 5 mg PO BID [facility] Last Admin: 11/09/17 08:02 Dose: 5 mg Aripiprazole (Abilify Tab*) 10 mg PO DAILY [facility] Last Admin: 11/09/17 08:02 Dose: 10 mg Atorvastatin Calcium (Lipitor*) 40 mg PO DAILY [facility] Last Admin: 11/09/17 08:03 Dose: 40 mg Dextrose (D50w Syringe 50 Ml*) 12.5 gm IV PUSH .FOR FS < 60 - SS PRN PRN Reason: FS < 60 Folic Acid (Folvite Tab*) 1 mg PO DAILY [facility] Last Admin: 11/09/17 08:04 Dose: 1 mg Gabapentin (Neurontin Cap(*)) 300 mg PO BID [facility] Last Admin: 11/09/17 08:03 Dose: 300 mg Insulin Glargine (Lantus(*)) 24 units SUBCUT DAILY [facility] Last Admin: 11/09/17 07:59 Dose: 24 units Insulin Human Lispro (Humalog*) 0 units SUBCUT ACHS [facility]; Protocol Last Admin: 11/09/17 12:03 Dose: 6 units Insulin Human Lispro (Humalog*) 6 units SUBCUT AC [facility] Last Admin: 11/09/17 12:03 Dose: 6 units Loperamide HCl (Imodium Liq*) 2 mg PO .SEE ORDER PRN PRN Reason: DIARRHEA Last Admin: 11/05/17 11:44 Dose: 2 mg Metoprolol Tartrate (Lopressor Tab*) 100 mg PO BID [facility] Last Admin: 11/09/17 08:03 Dose: 100 mg Multivitamins (Theragran Tab*) 1 tab PO DAILY [facility] Last Admin: 11/09/17 08:03 Dose: 1 tab Thiamine HCl (Vitamin B-1 Tab*) 100 mg PO DAILY [facility] Last Admin: 11/09/17 08:04 Dose: 100 mg Trazodone HCl (Desyrel Tab*) 50 mg PO BEDTIME PRN PRN Reason: SLEEP Last Admin: 11/05/17 20:08 Dose: 50 mg Allergies/Intolerances: cat dander Social History: lives alone, current history of alcohol abuse Family History: adopted Review of Systems: as above OBJECTIVE: Vital Signs: Temp Pulse Resp BP Pulse Ox 97.2 F 73 16 132/74 97 11/09/17 07:41 11/09/17 07:41 11/09/17 10:00 11/09/17 07:41 11/09/17 07:41 General: obese, alert, pleasant, oriented, no distress ENT: neck supple, no thyromegaly, no bruit is heard Chest: CTAB, no wheezing or crackles CV: RRR, no murmur Abdomen: soft, non-tender Extremities: no edema, distal pulses intact Skin: warm, dry, no rash Neuro: grossly intact motor/sensory in extremities Psych: restricted affect, pleasant Labs: Glucose and Insulin Results: 11/07/17 11:41 359 - 15L 11/07/17 16:30 181 - 3L 11/07/17 20:27 252 - 9L 11/08/17 07:40 160 - 3L, 24G 11/08/17 11:30 261 - 9L 11/08/17 16:30 211 - 6L 11/08/17 20:02 311 - 12L 11/09/17 07:54 206 - 6L, 24G 11/02/17 12:16 11/05/17 07:26 Total Bilirubin 0.90 mg/dL (0.2-1.0) 11/02/17 12:16 AST 78 U/L (13-39) H 11/02/17 12:16 ALT 71 U/L (7-52) H 11/02/17 12:16 Alkaline Phosphatase 55 U/L (34-104) 11/02/17 12:16 Total Protein 7.7 g/dL (6.4-8.9) 11/02/17 12:16 Albumin 4.4 g/dL (3.2-5.2) 11/02/17 12:16 Globulin 3.3 g/dL (2-4) 11/02/17 12:16 Albumin/Globulin Ratio 1.3 (1-3) 11/02/17 12:16 Triglycerides 290 mg/dL 11/04/17 08:03 Cholesterol 188 mg/dL 11/04/17 08:03 LDL Cholesterol 96 mg/dL 11/04/17 08:03 HDL Cholesterol 33.8 mg/dL 11/04/17 08:03 TSH 3.84 mcIU/mL (0.34-5.60) 11/02/17 12:16
--- NOTE | 2017-11-09 13:57 | PN ---
[facility]: Group Therapy Note - Service Type Service Type: 95310 Group Psychotherapy - Cognitive Behavioral Group Therapy ( CBT):Patient was attentive and participatory in CBT programming this morning, and remained in good behavioral control. Patient expressed positive insights regarding relevant treatment interventions and goals.
--- NOTE | 2017-11-11 03:08 | DS ---
CC: [facility] ACT team; Dr. Herman DISCHARGE SUMMARY: DATE OF ADMISSION: 11/03/17. DATE OF DISCHARGE: 11/09/17. SUPERVISING PSYCHIATRIST: Hunter Pedroza MD. DISCHARGE DIAGNOSES: 1. Schizoaffective disorder, depressed type. 2. Alcohol use disorder. CONDITION AT THE TIME OF DISCHARGE: Improved. The patient is euthymic with bright affect. He is ray vial at times. He denies suicidal ideation. He reports improvement in mood and continues to endorse motivation for healthy habit. The patient has agreed to work with the ACT team and will follow up w ith them this week. He has also been referred to [facility] for care coordination with his primary care pro vider. The patient has benefited greatly from diabetes management and restarting psychiatric and med ical medications. He accepted offer of gabapentin for alcohol cravings. He denies need for substanc e use treatment. He reports having participated in Alcoholic Anonymous in the past and does not agre e with the doctrine. He reports motivation to refrain from alcohol use for both his medical and ment al health. The patient also identifies need to be supportive to his elderly mother. MENTAL STATUS EXAM: Elias is a 47-year-old white male who appears stated age. He is morbidly obese . He is casually dressed in his own clothing. His ADLs are completed. The patient is alert and joan ented x3. Eye contact is good. Mood is euthymic with full range of affect. He is cooperative and a nswers questions fully. Thought process is logical, goal-directed and future-oriented. Thought brissa nt is negative for passive wish, suicidal ideation or paranoid ideation. He denies current aud io or visual hallucinations. Concentration is good. Memory is 3/3. Insight and judgment are good in this setting. INSTRUCTIONS GIVEN TO THE PATIENT: A. Medications: 1. Aripiprazole 10 mg p.o. daily. 2. Gabapentin 300 mg p.o. b.i.d. 3. Trazodone 50 mg p.o. q.h.s. p.r.n. insomnia. The above were electronically prescribed to [facility]. Hospitalist service provided the following medications at discharge: 1. Lipitor 40 mg daily. 2. Lantus insulin. 3. Sliding scale Humalog insulin. 4. Metoprolol 100 mg p.o. b.i.d. 5. Eliquis 500 mg p.o. b.i.d. B. Diet is diabetic diet. Low-fat, low-cholesterol. C. Activity: Ambulation as tolerated. Tobacco cessation declined by patient. There are no pending labs or diagnostic studies at the time of discharge. D. Followup care: As stated above. He will follow up with [facility] team and has an intake meet ing this 11/13/17. He will follow up with Dr. Herman and has an appointment on Thursday, at 11:50. HOSPITAL COURSE -PART A: Reason for admission: The patient presented to the emergency department, s elf-referred with reports of suicidal ideation and a plan to overdose on medications and alcohol. Th e patient was admitted to Adult Behavioral Services Unit on voluntary status and full code status. H e was initiated on [facility] protocol for alcohol detoxification. He was encouraged to participate in supp ortive milieu, individual sessions with staff and psychoeducational groups. HOSPITAL COURSE - PART B: Psychiatric treatment rendered. The patient was reinstated on Aripiprazol e and trazodone. We discontinued sertraline due to his nonadherence and reports of side effect. We reinstated medications for diabetes, hypothyroidism, hypercholesterolemia and hyperlipidemia. Hospit alist service consulted and assisted in management of medical comorbidities. The patient initially presented as irritable and dysphoric. He reported nonadherence for medications and increasing use of alcohol in the past year. He had been binge drinking 2 to 3 times a week. He was recently asked to leave the [facility] when intoxicated and verbally aggressive. The patien t identified stressor of relationship with his mother and her medical concerns. He stated that he goldman d missed multiple medical appointments due to her medical health. He had poor insight into his behav ior and lack of medical and mental health treatment. The patient was recently treated for atrial fl utter and has been taking only his cardiac medications. He had not been engaging in diabetes managem ent. LABORATORY DATA: CBC grossly unremarkable. CMP: Sodium 133, chloride 100, glucose upon arrival 272 . AST 78, ALT 71. TSH normal at 3.4. Urinalysis 1+ protein, 3+ rbc's, positive squamous epithelial cells, positive yeast, positive glucose. Toxicology negative for salicylate, acetaminophen, alcohol and urine drug screen was negative. We reinstated fingersticks and he had improvement from 300 to 4 00 to as low as 124 at one point. Hemoglobin A1c 8.7, triglycerides 290, cholesterol 188, LDL choles terol 96, HDL cholesterol 33.8. The patient was notified of these results and ways to improve labora tory data. The patient tolerated reinstating of Abilify. This was titrated to 10 mg. He utilized trazodone for sleep. He was cooperative with diabetes management. He benefited from nutrition consult and referr al to [facility]. He was increasingly interactive and cooperative. He was decr easingly irritable. His mother visited at times and was notified of plan of treatment. As stated abo ve, on day of discharge, the patient reported readiness for discharge. He denied suicidal ideation a nd notes no pain or unmanageable anxiety. He denied urges to drink alcohol. He continued to endorse strong motivation for healthy habits. He was notified to contact copy writer should he have any question s post discharge. He was safe on all checks, decreased to 30-minute observation and allowed to go on staff pass. He was adherent to unit routines. We hope that Elias continues to engage in healthy efforts. JEFF SANCHEZ, SAGAR [id number]/[facility] #: [id number]
== END 2017-11-09 13:44 | disposition home or self-care (01) | DRG 750 ==
LOC: ED 11:40 → BSU 19:50
PROVIDERS: ADMIT Psychiatry & Neurology Psychiatry; ATTEND Psychiatry & Neurology Psychiatry
PROC: HZ2ZZZZ Detoxification Services for Substance Abuse Treatment (ICD-10-PCS; principal; 2017-11-02)
DX: F25.1 Schizoaffective disorder, depressive type (principal); I48.92 Unspecified atrial flutter; R45.851 Suicidal ideations; Z68.42 Body mass index [BMI] 45.0-49.9, adult; E11.65 Type 2 diabetes mellitus with hyperglycemia; E03.9 Hypothyroidism, unspecified; F10.20 Alcohol dependence, uncomplicated; Y90.0 Blood alcohol level of less than 20 mg/100 ml; E66.01 Morbid (severe) obesity due to excess calories
CPT/HCPCS: 36415; 80048; 80053; 80061; 80307; 80320; 80329; 81003; 81015; 82947; 83036; 84443; 85025; 87086; 90686; 90853; 93005; 99222; 99231; 99232; 99238; 99283; A9270-GY; G0480

== ENCOUNTER 2017-12-25 16:36 | Emergency (ER) | payer OTHER ==
--- NOTE | 2017-12-25 17:27 | ED ---
Back Pain - HPI Summary HPI Summary: Pt is a 47 y/o male brought in by EMS who presents to the ED c/o back pain. He states the left-sided back pain gradually began 3 days ago, and has been worsening since. The pain is better when sitting up or leaning forward, and is made worse by lying down and walking. He denies any heavy lifting, injury, or fall, and is unsure what is causing the pain. Currently the pain is rated as a 7 /10 in severity. He also c/o left leg weakness. PMHx sciatica and herniated disc. Ibuprofen does not alleviate the pain. He was prescribed Flexeril today by his PCP, but he states he cant get it because he cant walk to the pharmacy. - History of Current Complaint Chief Complaint: EDBackInjuryPain Stated Complaint: BACK PAIN Time Seen by Provider: 12/25/17 17:19 Hx Obtained From: Patient Onset/Duration: Gradual Onset, Lasting Days - 3, Worse Since Timing: Constant Severity Currently: Severe Pain Intensity: 9 Pain Scale Used: 0-10 Numeric Aggravating Symptom(s): Walking, Other - Lying flat Alleviating Symptom(s): Position - Sitting, leaning forward Related History: Previous Back Injury - herniated disc - Allergies/Home Medications Allergies/Adverse Reactions: Allergies Allergy/AdvReac Type Severity Reaction Status Date / Time cat dander Allergy Eyes Verified 12/25/17 18:11 Itchy/Swollen/Red/Watery PMH/Surg Hx/FS Hx/Imm Hx Endocrine/Hematology History: Reports: Hx Diabetes, Hx Thyroid Disease Denies: Hx Anticoagulant Therapy Cardiovascular History: Reports: Hx Hypercholesterolemia, Hx Hypertension, Other Cardiovascular Problems/Disorders - atrial flutter Denies: Hx Congestive Heart Failure, Hx Deep Vein Thrombosis, Hx Myocardial Infarction, Hx Pacemaker/ICD, Hx Peripheral Vascular Disease Respiratory History: Reports: Hx Asthma - He used inhalers when he had bronchitis., Hx Sleep Apnea, Other Respiratory Problems/Disorders - Bronchitis in Mar 2015 Denies: Hx Chronic Obstructive Pulmonary Disease (COPD), Hx Lung Cancer, Hx Pneumonia, Hx Pulmonary Embolism GI History: Reports: Other GI Disorders - enlarged liver Denies: Hx Gall Bladder Disease, Hx Gastrointestinal Bleed, Hx Ulcer, Hx Urosepsis History: Denies: Hx Kidney Stones, Hx Renal Disease Musculoskeletal History: Reports: Other Musculoskeletal History - bilateral knee pain Denies: Hx Arthritis, Hx Osteoporosis Sensory History: Reports: Hx Contacts or Glasses - needs glasses per pt Denies: Hx Hearing Aid Opthamlomology History: Reports: Hx Contacts or Glasses - needs glasses per pt Neurological History: Denies: Hx Dementia, Hx Migraine, Hx Seizures, Hx Transient Ischemic Attacks (TIA) Psychiatric History: Reports: Hx Anxiety, Hx Depression, Hx Inpatient Treatment , Hx Community Mental Health Ri - [facility], Hx of Violent Episodes Against Others, Hx Substance Abuse, Other Psychiatric Issues/Disorders - schizoaffective disorder Denies: Hx Attention Deficit Hyperactivity Disorder, Hx Eating Disorder, Hx Panic Disorder, Hx Post Traumatic Stress Disorder, Hx Schizophrenia, Hx Bipolar Disorder, Hx Suicide Attempt - Surgical History Surgery Procedure, Year, and Place: fistula removed at [facility] in 2006 Hx Anesthesia Reactions: No Infectious Disease History: No Infectious Disease History: Denies: Hx Clostridium Difficile, Hx Hepatitis, Hx Human Immunodeficiency Virus (HIV), Hx of Known/Suspected MRSA, Hx Shingles, Hx Tuberculosis, Hx Known/ Suspected VRE, Hx Known/Suspected VRSA, History Other Infectious Disease, Traveled Outside the [place] in Last 30 Days - Family History Known Family History: Positive: Other - Positive EtOH dependence in biological parents - Social History Alcohol Use: every other day Alcohol Amount: 350 ml of vodka - states he quit Hx Substance Use: Yes Substance Use Type: Reports: Marijuana Substance Use Comment - Amount & Last Used: Occasionally- 10 days ag = states no more Hx Tobacco Use: Yes Smoking Status (MU): Current Every Day Smoker Type: Cigars Amount Used/How Often: States smoking "1 or 2 cigars a couple of times a week" Length of Time of Smoking/Using Tobacco: 1/2 PPD Have You Smoked in the Last Year: Yes Review of Systems Positive: Myalgia - Back pain Positive: Weakness - Left leg All Other Systems Reviewed And Are Negative: Yes Physical Exam - Summary Physical Exam Summary: Appearance: Well appearing, no pain distress Skin: warm, dry, reflects adequate perfusion Head/face: normal Eyes: EOMI, [place] ENT: mucous membranes moist Neck: supple, non-tender Respiratory: CTA, breath sounds present Cardiovascular: RRR, pulses symmetrical Abdomen: non-tender, soft Bowel Sounds: present Musculoskeletal: tenderness over left paralumbar musculature, positive left straight leg test at 30 degrees Neuro: normal, sensory motor intact, A&Ox3 Triage Information Reviewed: Yes Vital Signs On Initial Exam: Initial Vitals Temp Pulse Resp BP Pulse Ox 98.2 F 95 18 144/80 93 12/25/17 16:40 12/25/17 16:40 12/25/17 16:40 12/25/17 16:40 12/25/17 16:40 Vital Signs Reviewed: Yes Diagnostics - Vital Signs Vital Signs Temp Pulse Resp BP Pulse Ox 12/25/17 16:40 98.2 F 95 18 144/80 93 - Laboratory Lab Statement: Any lab studies that have been ordered have been reviewed, and results considered in the medical decision making process. Re-Evaluation - Re-Evaluation First Eval Re-Evaluation Time: 18:04 Change: Improved Comment: Pt feels better after the medications, but still has some pain. Back Pain Course/Dx - Course Course Of Treatment: Patient with history of sciatica in the past with acute exacerbation. No saddle numbness, weakness/numbness or difficulty with bowel or bladder. Trigger point injection helped the back pain significantly. Steroids given but patient cautioned to watch his blood sugars closely given that he is diabetic. All up with primary care physician and is given referral to physical therapy. - Diagnoses Differential Diagnosis/HQI/PQRI: Positive: Cauda Equina Syndrome, Compressive Cord Syndrome, Herniated Disc Provider Diagnoses: Lumbar back pain, Lumbar radiculopathy, acute, Type II diabetes mellitus, Morbid obesity with BMI of 40.0-44.9, adult Discharge - Sign-Out/Discharge Documenting (check all that apply): Patient Departure - Discharge - Discharge Plan Condition: Improved Disposition: HOME Prescriptions: Cyclobenzaprine TAB* [Flexeril 10 MG TAB*] 10 mg PO TID PRN #15 tab PRN Reason: muscle pain HYDROcodone/ACETAMIN 5-325 MG* [[place] 5-325 TAB*] 1 tab PO Q6H PRN #12 tab MDD 4 PRN Reason: more severe pain methylPREDNISolone [Medrol] 4 mg PO DAILY #1 tab.[id number] Patient Education Materials: Lumbar Radiculopathy (ED) Referrals: Margarita Herman MD [Primary Care Provider] - Additional Instructions: Steroids can make your blood sugars rise. Check your blood sugars often and understand that you may require increased doses of insulin. Return with uncontrolled pain, inability to walk, loss of control of bowel or bladder, numbness/weakness, worse or other concerns. Follow up with your doctor on Thursday. [facility] can go to [facility] to be seen by the physical therapist. A prescription has been given to you. - Billing Disposition and Condition Condition: IMPROVED Disposition: Home - Attestation Statements Document Initiated by Veronica: Yes Documenting Scribe: Sarah Farley Provider For Whom Veronica is Documenting (Include Credential): Flavio Smith MD Scribe Attestation: Sarah Lam, scribed for Flavio Smith MD on 12/25/17 at 1851. Scribe Documentation Reviewed: Yes Provider Attestation: The documentation as recorded by the Sarah villatoro accurately reflects the service I personally performed and the decisions made by , Flavio Smith MD
[2017-12-25] MEDS ORDERED: oxyCODONE/Acetamin 5/325 MG* TAB PO ONE (17:34)
[2017-12-25] MEDS ORDERED: predniSONE TAB* 20 MG PO ONE (17:34)
[2017-12-25] MEDS ORDERED: LORazepam TAB(*) 1 MG PO ONE (17:34)
[2017-12-25] MEDS ORDERED: Ketorolac INJ* 60 MG/2 ML VIAL IM ONE (17:34)
[2017-12-25] MEDS ORDERED: Cyclobenzaprine TAB* 10 MG PO ONE (18:14)
[2017-12-25 18:29] VITALS: BP 0/0
== END 2017-12-25 18:27 | disposition home or self-care (01) ==
LOC: ED 16:36
DX: M54.5 Low back pain (principal); M54.16 Radiculopathy, lumbar region; E11.9 Type 2 diabetes mellitus without complications; E66.01 Morbid (severe) obesity due to excess calories; Z68.41 Body mass index [BMI] 40.0-44.9, adult; F17.290 Nicotine dependence, other tobacco product, uncomplicated
CPT/HCPCS: 96372; 99283; A9270-GY; J1885; J7512

== ENCOUNTER 2018-06-29 14:46 | Inpatient (IN) | payer OTHER ==
[2018-06-29 15:46] LABS: Hematocrit 45 % (42-52); Hemoglobin 15.5 g/dL (14.0-18.0); Mean Corpuscular HGB Conc 35 g/dL (31-36); Mean Corpuscular Hemoglobin 33 pg (27-31); Mean Corpuscular Volume 95 fL (80-94); Mean Platelet Volume 7.3 fL (7.4-10.4); Platelet Count 264 10^3/uL (150-450); Red Blood Count 4.66 10^6 /uL (4.18-5.48); Red Cell Distribution Width 14 % (10.5-15); White Blood Count 9.1 10^3/uL (3.5-10.8)
[2018-06-29 16:04] LABS: ALT 49 U/L (7-52); AST 48 U/L (13-39); Albumin 4.6 g/dL (3.2-5.2); Albumin/Globulin Ratio 1.4 (1-3); Alkaline Phosphatase 56 U/L (34-104); Anion Gap 10 mmol/L (2-11); BUN/Creatinine Ratio 21.6 (8-20); Blood Urea Nitrogen 16 mg/dL (6-24); CO2 Carbon Dioxide 21 mmol/L (22-32); Calcium 9.8 mg/dL (8.6-10.3); Chloride 101 mmol/L (101-111); EGFR African American 135.5 (>60); Globulin 3.3 g/dL (2-4); Glucose 376 mg/dL (70-100); Sodium 132 mmol/L (135-145); Total Protein 7.9 g/dL (6.4-8.9)
[2018-06-29 16:28] LABS: ABS Basophils 0.1 10^3/ul (0-0.2); ABS Eosinophils 0.2 10^3/ul (0-0.6); ABS Lymphocytes 2.2 10^3/ul (1.0-4.8); ABS Monocytes 0.6 10^3/ul (0-0.8); ABS Neutrophils 6.1 10^3/ul (1.5-7.7); Eosinophil % 1.7 %; Lymphocyte % 24.2 %
[2018-06-29 16:32] LABS: Acetaminophen < 15 mcg/mL; Alcohol < 10 mg/dL (<10); Salicylate < 2.50 mg/dL (<30)
[2018-06-29 16:41] LABS: TSH (Thyroid Stimulating Horm) 4.26 mcIU/mL (0.34-5.60)
[2018-06-29 18:52] LABS: Urine Appearance Cloudy; Urine Bilirubin Negative (Negative); Urine Blood Negative (Negative); Urine Color Yellow; Urine Glucose 3+(>=500 mg/dL) (Negative); Urine Ketones Trace (Negative); Urine Nitrite Negative (Negative); Urine Protein Negative (Negative); Urine Specific Gravity 1.035 (1.010-1.030); Urine Urobilinogen Negative (Negative)
[2018-06-29 19:05] LABS: Urine Benzodiazepine Screen None Detected (None Detect); Urine Opiates Screen None Detected (None Detect)
[2018-06-29] MEDS ORDERED: Insulin REGULAR(*) 1 UNITS UNIT SUBCUT ONE (19:49)
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
[2018-06-29] MEDS ORDERED: Acetaminophen TAB* 325 MG PO PRN (21:57)
[2018-06-29] MEDS ORDERED: Al Hydrox/Mg Hydrox/Simet LIQ* 30 ML UDC PO PRN (21:57)
[2018-06-30 07:19] LABS: HDL Cholesterol 28.9 mg/dL
[2018-06-30] MEDS: ARIPiprazole TAB* 5 MG PO SCH (08:00)
[2018-06-30] MEDS: Insulin GLARGINE(*) 1 UNITS UNIT SUBCUT SCH (08:00)
[2018-06-30] MEDS: Vitamin THERAPEUTIC TAB PO SCH (08:00)
[2018-06-30] MEDS ORDERED: traZODone TAB* 50 MG TAB PO PRN (11:19)
[2018-06-30] MEDS ORDERED: Dextrose 50% Syringe 50 ML* 25 GM/50 ML SYRINGE IV PUSH PRN (11:29)
[2018-06-30] MEDS: Insulin LISPRO* 1 UNITS UNIT SUBCUT SCH ×3 (11:55→20:24)
[2018-06-30] MEDS: Atorvastatin* 20 MG TAB PO SCH (11:57)
[2018-06-30] MEDS: Gabapentin CAP(*) 300 MG PO SCH ×2 (11:58→20:25)
[2018-06-30] MEDS: Metoprolol Tartrate TAB* 50 mg PO SCH ×2 (11:58→20:26)
[2018-06-30] MEDS: Apixaban* 5 MG TAB PO SCH ×2 (13:36→20:25)
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
[2018-06-30] MEDS: Loperamide CAP* 2 MG PO PRN (16:03)
[2018-06-30] MEDS: metFORMIN* 500 MG TAB PO SCH (16:48)
[2018-06-30] MEDS ORDERED: Apixaban* 5 MG TAB PO SCH (22:00)
[2018-07-01] MEDS: Vitamin THERAPEUTIC TAB PO SCH (09:24)
[2018-07-01] MEDS: metFORMIN* 500 MG TAB PO SCH ×2 (09:25→16:53)
[2018-07-01] MEDS: Apixaban* 5 MG TAB PO SCH ×2 (09:25→21:51)
[2018-07-01] MEDS: Atorvastatin* 20 MG TAB PO SCH (09:25)
[2018-07-01] MEDS: Gabapentin CAP(*) 300 MG PO SCH ×2 (09:25→21:52)
[2018-07-01] MEDS: Metoprolol Tartrate TAB* 50 mg PO SCH ×2 (09:25→21:52)
[2018-07-01] MEDS: Insulin LISPRO* 1 UNITS UNIT SUBCUT SCH ×4 (09:26→21:53)
[2018-07-01] MEDS: ARIPiprazole TAB* 5 MG PO SCH (09:26)
[2018-07-01] MEDS: Insulin GLARGINE(*) 1 UNITS UNIT SUBCUT SCH (09:28)
--- NOTE | 2018-07-01 11:18 | PN ---
BSU: Group Therapy Note - Service Type Service Type: 05707 Group Psychotherapy - Cognitive Behavioral Group Therapy ( CBT):Patient was attentive and participatory in CBT programming this morning, and remained in good behavioral control. Patient expressed positive insights regarding relevant treatment interventions and goals.
--- NOTE | 2018-07-01 16:55 | PN ---
Subjective - Subjective Date of Service: 07/01/18 Service Type: 06249 Hosp care 15 min low complexity Subjective: Patient is napping upon approach, easy to rouse. He reports intent to participate in programming but that he wasn't feel well for a moment (nausea). He states his mood is "so so" and that he has vague SI and passive wish. He reports improvement in sleep. He states he is trying to be mindful of making healthy choices from meal buffet. Objective - General Observations Appearance: Unkempt Appears Stated Age: Yes Stature: Overweight Posture: Slumped Eye Contact: Average Behavior/Activity: WNL - Interaction Observations Attitude Towards Examiner: Cooperative Stated Mood: Dysphoric, Irritable Affect: Blunted Speech Pattern/Tone: Clear, Appropriate, Normal Volume Thought Process: Coherent, Impoverished Perception: WNL Thought Content: Depressive, Self-Deprecatory Thought Process: Lethality: Passive Wish Hallucination Type: None Delusion Type: None - Cognitive Function Orientation: A&O x 4 Level of Consciousness: Alert Cognition: WNL Estimated Intelligence: Normal Insight: Mostly Blames Others for Problems Judgment Within Normal Limits: No Ability to Make Reasonable Decisions: Moderately Impaired - Medication Compliance Cooperative with Inpatient Medication Regimen: Yes - Group Participation Participates in Group Activities: Partial Assessment - Assessment Merits Inpatient Hospitalization: For Immediate Safety, For Stabilization Inpatient DSM-V Dx: F25.1 Clinical Impression: 48yo wm, domiciled, mentally disabled with hx of schizoaffective d/o, alcohol use d/o, morbid obesity, DM II and poor adherence to outpt treatment. He was referred to [facility] after his last hospitalization and worked with them for approx one month. He reports significant stressor of his daughter showing up this month , stealing his medications and diabetic supplies. He phoned police when she wouldn't leave and identified she had a warrant for her arrest in another county. Since that time, patient has been binge eating and drinking for emotional release and passive wish. Plan - Plan Treatment Plan: Name: NIALL HAYES Birthdate: 1970 [id number] continue acute intensive psychiatric treatment. may decrease to q30min. We resumed all medications and added metformin. Discharge planning to include outpatient providers and referral to [facility]. Continued Medication Management: Start Medication Medications: Current Medications Acetaminophen (Tylenol Tab*) 650 mg PO Q4H PRN PRN Reason: PAIN or TEMP > 101 F Al Hydrox/Mg Hydrox/Simethicone (Maalox Plus*) 30 ml PO Q4H PRN PRN Reason: INDIGESTION Last Admin: 06/30/18 13:37 Dose: 30 ml Apixaban (Eliquis*) 5 mg PO BID [facility] Last Admin: 07/01/18 09:25 Dose: 5 mg Aripiprazole (Abilify Tab*) 10 mg PO DAILY [facility] Last Admin: 07/01/18 09:26 Dose: 10 mg Atorvastatin Calcium (Lipitor*) 40 mg PO DAILY [facility] Last Admin: 07/01/18 09:25 Dose: 40 mg Dextrose (D50w Syringe 50 Ml*) 12.5 gm IV PUSH .FOR FS < 60 - SS PRN PRN Reason: FS < 60 Gabapentin (Neurontin Cap(*)) 300 mg PO BID [facility] Last Admin: 07/01/18 09:25 Dose: 300 mg Insulin Glargine (Lantus(*)) 35 units SUBCUT DAILY [facility] Last Admin: 07/01/18 09:28 Dose: 35 units Insulin Human Lispro (Humalog*) 0 units SUBCUT ACHS [facility]; Protocol Last Admin: 07/01/18 11:56 Dose: 9 units Loperamide HCl (Imodium Cap*) 2 mg PO .SEE DIRECTIONS PRN PRN Reason: DIARRHEA Last Admin: 06/30/18 16:03 Dose: 2 mg Metformin HCl (Glucophage*) 500 mg PO 0800,1700 [facility] Last Admin: 07/01/18 09:25 Dose: 500 mg Metoprolol Tartrate (Lopressor Tab*) 100 mg PO BID [facility] Last Admin: 07/01/18 09:25 Dose: 100 mg Multivitamins (Theragran Tab*) 1 tab PO DAILY [facility] Last Admin: 07/01/18 09:24 Dose: 1 tab Trazodone HCl (Desyrel Tab*) 50 mg PO BEDTIME PRN PRN Reason: SLEEP - Discharge Plan Discharge Plan: Inpatient Hospitalization
[2018-07-02] MEDS: metFORMIN* 500 MG TAB PO SCH ×2 (07:40→16:53)
[2018-07-02] MEDS: Vitamin THERAPEUTIC TAB PO SCH (07:41)
[2018-07-02] MEDS: ARIPiprazole TAB* 5 MG PO SCH (07:41)
[2018-07-02] MEDS: Gabapentin CAP(*) 300 MG PO SCH ×2 (07:41→21:34)
[2018-07-02] MEDS: Apixaban* 5 MG TAB PO SCH ×2 (07:41→21:34)
[2018-07-02] MEDS: Atorvastatin* 20 MG TAB PO SCH (07:41)
[2018-07-02] MEDS: Insulin LISPRO* 1 UNITS UNIT SUBCUT SCH ×4 (07:43→21:33)
[2018-07-02] MEDS: Metoprolol Tartrate TAB* 50 mg PO SCH ×2 (08:43→21:35)
[2018-07-02] MEDS: Loperamide CAP* 2 MG PO PRN (08:43)
[2018-07-02] MEDS: Insulin GLARGINE(*) 1 UNITS UNIT SUBCUT SCH (08:44)
--- NOTE | 2018-07-02 13:42 | PN ---
Subjective - Subjective Date of Service: 07/02/18 Service Type: 40468 Hosp care 15 min low complexity Subjective: Niall is found sleeping bed. He awakens briefly to his name, but falls asleep again quickly. He has been in groups today and has participated. He has offered no complaints and has been pleasant. Objective - General Observations Appearance: Disheveled Appears Stated Age: Yes Stature: Overweight Posture: WNL Behavior/Activity: Slowed - Interaction Observations Stated Mood: Dysphoric Affect: Blunted Speech Pattern/Tone: Clear Thought Process: Coherent Perception: WNL Thought Content: WNL Hallucination Type: None Delusion Type: None - Cognitive Function Orientation: A&O x 4 Level of Consciousness: Drowsy Cognition: WNL Estimated Intelligence: Normal Judgment Within Normal Limits: Yes Ability to Make Reasonable Decisions: Mildly Impaired - Medication Compliance Cooperative with Inpatient Medication Regimen: Yes - Group Participation Participates in Group Activities: Partial Assessment - Assessment Merits Inpatient Hospitalization: For Immediate Safety Inpatient DSM-V Dx: F25.1 Clinical Impression: 48yo wm, domiciled, mentally disabled with hx of schizoaffective d/o, alcohol use d/o, morbid obesity, DM II and poor adherence to outpt treatment. He was referred to [facility] after his last hospitalization and worked with them for approx one month. He reports significant stressor of his daughter showing up this month , stealing his medications and diabetic supplies. He phoned police when she wouldn't leave and identified she had a warrant for her arrest in another county. Since that time, patient has been binge eating and drinking for emotional release and passive wish. Plan - Plan Treatment Plan: Name: NIALL HAYES Birthdate: 1970 [id number] continue acute intensive psychiatric treatment. may decrease to q30min. We resumed all medications and added metformin. Discharge planning to include outpatient providers and referral to [facility]. Staff pass will begin today. Medications: Current Medications Acetaminophen (Tylenol Tab*) 650 mg PO Q4H PRN PRN Reason: PAIN or TEMP > 101 F Al Hydrox/Mg Hydrox/Simethicone (Maalox Plus*) 30 ml PO Q4H PRN PRN Reason: INDIGESTION Last Admin: 06/30/18 13:37 Dose: 30 ml Apixaban (Eliquis*) 5 mg PO BID [facility] Last Admin: 07/02/18 07:41 Dose: 5 mg Aripiprazole (Abilify Tab*) 10 mg PO DAILY [facility] Last Admin: 07/02/18 07:41 Dose: 10 mg Atorvastatin Calcium (Lipitor*) 40 mg PO DAILY [facility] Last Admin: 07/02/18 07:41 Dose: 40 mg Dextrose (D50w Syringe 50 Ml*) 12.5 gm IV PUSH .FOR FS < 60 - SS PRN PRN Reason: FS < 60 Gabapentin (Neurontin Cap(*)) 300 mg PO BID [facility] Last Admin: 07/02/18 07:41 Dose: 300 mg Insulin Glargine (Lantus(*)) 35 units SUBCUT DAILY [facility] Last Admin: 07/02/18 08:44 Dose: 35 units Insulin Human Lispro (Humalog*) 0 units SUBCUT ACHS [facility]; Protocol Last Admin: 07/02/18 11:52 Dose: 6 units Loperamide HCl (Imodium Cap*) 2 mg PO .SEE DIRECTIONS PRN PRN Reason: DIARRHEA Last Admin: 07/02/18 08:43 Dose: 2 mg Metformin HCl (Glucophage*) 500 mg PO 0800,1700 [facility] Last Admin: 07/02/18 07:40 Dose: 500 mg Metoprolol Tartrate (Lopressor Tab*) 100 mg PO BID [facility] Last Admin: 07/02/18 08:43 Dose: 100 mg Multivitamins (Theragran Tab*) 1 tab PO DAILY [facility] Last Admin: 07/02/18 07:41 Dose: 1 tab Trazodone HCl (Desyrel Tab*) 50 mg PO BEDTIME PRN PRN Reason: SLEEP - Discharge Plan Discharge Plan: Outpatient Follow Up Outpatient Program: [facility]
[2018-07-03] MEDS: Insulin GLARGINE(*) 1 UNITS UNIT SUBCUT SCH (07:48)
[2018-07-03] MEDS: Insulin LISPRO* 1 UNITS UNIT SUBCUT SCH ×4 (07:49→21:14)
[2018-07-03] MEDS: Atorvastatin* 20 MG TAB PO SCH (09:17)
[2018-07-03] MEDS: metFORMIN* 500 MG TAB PO SCH ×2 (09:17→17:14)
[2018-07-03] MEDS: Vitamin THERAPEUTIC TAB PO SCH (09:17)
[2018-07-03] MEDS: Metoprolol Tartrate TAB* 50 mg PO SCH ×2 (09:17→21:06)
[2018-07-03] MEDS: Gabapentin CAP(*) 300 MG PO SCH ×2 (09:17→21:05)
[2018-07-03] MEDS: Apixaban* 5 MG TAB PO SCH ×2 (09:18→21:06)
[2018-07-03] MEDS: ARIPiprazole TAB* 5 MG PO SCH (09:18)
[2018-07-04] MEDS: Insulin GLARGINE(*) 1 UNITS UNIT SUBCUT SCH (08:06)
[2018-07-04] MEDS: Insulin LISPRO* 1 UNITS UNIT SUBCUT SCH ×4 (08:06→20:13)
[2018-07-04] MEDS: Apixaban* 5 MG TAB PO SCH ×2 (09:40→20:07)
[2018-07-04] MEDS: Atorvastatin* 20 MG TAB PO SCH (09:40)
[2018-07-04] MEDS: Gabapentin CAP(*) 300 MG PO SCH ×2 (09:40→20:07)
[2018-07-04] MEDS: ARIPiprazole TAB* 5 MG PO SCH (09:40)
[2018-07-04] MEDS: Metoprolol Tartrate TAB* 50 mg PO SCH ×2 (09:40→20:07)
[2018-07-04] MEDS: metFORMIN* 500 MG TAB PO SCH ×2 (09:40→16:48)
[2018-07-04] MEDS: Vitamin THERAPEUTIC TAB PO SCH (09:41)
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
[2018-07-05] MEDS: Insulin GLARGINE(*) 1 UNITS UNIT SUBCUT SCH (07:54)
[2018-07-05] MEDS: Insulin LISPRO* 1 UNITS UNIT SUBCUT SCH ×3 (07:55→19:52)
[2018-07-05] MEDS: ARIPiprazole TAB* 5 MG PO SCH (09:00)
[2018-07-05] MEDS: Vitamin THERAPEUTIC TAB PO SCH (09:00)
[2018-07-05] MEDS: metFORMIN* 500 MG TAB PO SCH ×2 (09:01→16:50)
[2018-07-05] MEDS: Apixaban* 5 MG TAB PO SCH ×2 (09:01→19:45)
[2018-07-05] MEDS: Metoprolol Tartrate TAB* 50 mg PO SCH ×2 (09:01→19:45)
[2018-07-05] MEDS: Atorvastatin* 20 MG TAB PO SCH (09:02)
[2018-07-05] MEDS: Gabapentin CAP(*) 300 MG PO SCH ×2 (09:02→19:45)
--- NOTE | 2018-07-05 12:39 | PN ---
Subjective - Subjective Date of Service: 07/05/18 Service Type: 87375 Hosp care 15 min low complexity Subjective: Niall is seen in Holiday coverage for NPP, [place]. He is in good spirits, present on the milieu and cooperative with unit expectations. "It's looking good. I'm hoping to be out of here by tomorrow." He denies SI and is willing to abstain from alcohol and manage his diabetes. He has no acute complaints. Objective - General Observations Appearance: Unkempt Stature: Overweight Posture: WNL Eye Contact: Average Behavior/Activity: WNL - Interaction Observations Attitude Towards Examiner: Cooperative Stated Mood: Euthymic Affect: Full Speech Pattern/Tone: Clear, Appropriate, Normal Volume Thought Process: Coherent Perception: WNL Thought Content: WNL Hallucination Type: None Delusion Type: None - Cognitive Function Orientation: A&O x 4 Level of Consciousness: Awake Cognition: WNL Estimated Intelligence: Normal Insight: WNL Judgment Within Normal Limits: Yes - Medication Compliance Cooperative with Inpatient Medication Regimen: Yes - Group Participation Participates in Group Activities: Yes Assessment - Assessment Merits Inpatient Hospitalization: Consolidate Improvements, Pending Safe DC Plan Inpatient DSM-V Dx: F25.1 Clinical Impression: 48yo wm, domiciled, mentally disabled with hx of schizoaffective d/o, alcohol use d/o, morbid obesity, DM II and poor adherence to outpt treatment. He was referred to ACT after his last hospitalization and worked with them for approx one month. He reports significant stressor of his daughter showing up this month , stealing his medications and diabetic supplies. He phoned police when she wouldn't leave and identified she had a warrant for her arrest in another county. Since that time, patient has been binge eating and drinking for emotional release and passive wish. Stabilizing in this structured setting. Plan - Plan Treatment Plan: Name: NIALL HAYES Birthdate: 1970 [id number] continue acute intensive psychiatric treatment. may decrease to q30min. We resumed all medications and added metformin. Discharge planning to include outpatient providers and referral to [facility]. Continued Medication Management: Continue Outpt Medication Medications: Current Medications Acetaminophen (Tylenol Tab*) 650 mg PO Q4H PRN PRN Reason: PAIN or TEMP > 101 F Al Hydrox/Mg Hydrox/Simethicone (Maalox Plus*) 30 ml PO Q4H PRN PRN Reason: INDIGESTION Last Admin: 06/30/18 13:37 Dose: 30 ml Apixaban (Eliquis*) 5 mg PO BID [facility] Last Admin: 07/05/18 09:01 Dose: 5 mg Aripiprazole (Abilify Tab*) 10 mg PO DAILY [facility] Last Admin: 07/05/18 09:00 Dose: 10 mg Atorvastatin Calcium (Lipitor*) 40 mg PO DAILY [facility] Last Admin: 07/05/18 09:02 Dose: 40 mg Dextrose (D50w Syringe 50 Ml*) 12.5 gm IV PUSH .FOR FS < 60 - SS PRN PRN Reason: FS < 60 Gabapentin (Neurontin Cap(*)) 300 mg PO BID [facility] Last Admin: 07/05/18 09:02 Dose: 300 mg Insulin Glargine (Lantus(*)) 35 units SUBCUT DAILY [facility] Last Admin: 07/05/18 07:54 Dose: 35 units Insulin Human Lispro (Humalog*) 0 units SUBCUT ACHS [facility]; Protocol Last Admin: 07/05/18 07:55 Dose: 3 units Loperamide HCl (Imodium Cap*) 2 mg PO .SEE DIRECTIONS PRN PRN Reason: DIARRHEA Last Admin: 07/02/18 08:43 Dose: 2 mg Metformin HCl (Glucophage*) 500 mg PO 0800,1700 [facility] Last Admin: 07/05/18 09:01 Dose: 500 mg Metoprolol Tartrate (Lopressor Tab*) 100 mg PO BID [facility] Last Admin: 07/05/18 09:01 Dose: 100 mg Multivitamins (Theragran Tab*) 1 tab PO DAILY [facility] Last Admin: 07/05/18 09:00 Dose: 1 tab Trazodone HCl (Desyrel Tab*) 50 mg PO BEDTIME PRN PRN Reason: SLEEP - Discharge Plan Discharge Plan: Outpatient Follow Up Outpatient Program: [facility]
[2018-07-06] MEDS: Insulin LISPRO* 1 UNITS UNIT SUBCUT SCH ×2 (00:31→07:48)
[2018-07-06] MEDS: Insulin GLARGINE(*) 1 UNITS UNIT SUBCUT SCH (07:47)
[2018-07-06] MEDS: Apixaban* 5 MG TAB PO SCH (07:49)
[2018-07-06] MEDS: Vitamin THERAPEUTIC TAB PO SCH (07:49)
[2018-07-06] MEDS: metFORMIN* 500 MG TAB PO SCH (07:49)
[2018-07-06] MEDS: Gabapentin CAP(*) 300 MG PO SCH (07:49)
[2018-07-06] MEDS: Atorvastatin* 20 MG TAB PO SCH (07:49)
[2018-07-06] MEDS: Metoprolol Tartrate TAB* 50 mg PO SCH (07:50)
[2018-07-06] MEDS: ARIPiprazole TAB* 5 MG PO SCH (07:50)
[2018-07-06 07:51] VITALS: BP 147/79
--- NOTE | 2018-07-06 10:18 | DCNOTE ---
Subjective - Subjective Service Types: 00215 Hosp DC Day Mgmt simple under 30 min Discharge Date: 07/06/18 Subjective: patient reports readiness for discharge. per staff, he has been expressing readiness over the weekend. Patient denies SI and reports improved mood. He is encouraged to f/u with outpatient commercial litigation associate and primary care for medical comorbidities. He states hopefulness in regards to attending [facility] at [facility]. Objective - General Observations Appearance: Well Groomed Stature: Overweight Posture: WNL Eye Contact: Average Behavior/Activity: WNL - Interaction Observations Attitude Towards Examiner: Cooperative Stated Mood: Euthymic Affect: Full Speech Pattern/Tone: Clear, Appropriate, Normal Volume Thought Process: Coherent Perception: WNL Thought Content: WNL Hallucination Type: None Delusion Type: None - Cognitive Function Orientation: A&O x 4 Level of Consciousness: Alert Cognition: WNL Estimated Intelligence: Normal Insight: WNL Judgment Within Normal Limits: Yes - Medication Compliance Cooperative with Inpatient Medication Regimen: Yes - Group Participation Participates in Group Activities: Partial DC Assessment - Assessment Clinical Impression: 48yo wm, domiciled, mentally disabled with hx of schizoaffective d/o, alcohol use d/o, morbid obesity, DM II and poor adherence to outpt treatment. He was referred to ACT after his last hospitalization and worked with them for approx one month. He reports significant stressor of his daughter showing up this month , stealing his medications and diabetic supplies. He phoned police when she wouldn't leave and identified she had a warrant for her arrest in another county. Since that time, patient has been binge eating and drinking for emotional release and passive wish. He is stabilized in this structured setting. He is medication compliant and reports desire to discharge and resume outpatient treatment. Clear for Discharge: Adequate Clinical Respons, Acceptable Safety Profile Inpatient DSM-V Dx: F25.1 Discharge Planning - Discharge Planning Discharge Plan: Outpatient Follow Up Outpatient Program: [facility] Recommendations for Continuing Care: Medication Management, Psychotherapy, Routine Metabolic Monitoring, Primary Care Followup, Specialty Followup Medications: Current Medications Apixaban (Eliquis*) 5 mg PO BID [facility] Last Admin: 07/06/18 07:49 Dose: 5 mg Aripiprazole (Abilify Tab*) 10 mg PO DAILY [facility] Last Admin: 07/06/18 07:50 Dose: 10 mg Atorvastatin Calcium (Lipitor*) 40 mg PO DAILY [facility] Last Admin: 07/06/18 07:49 Dose: 40 mg Gabapentin (Neurontin Cap(*)) 300 mg PO BID [facility] Last Admin: 07/06/18 07:49 Dose: 300 mg Insulin Glargine (Lantus(*)) 35 units SUBCUT DAILY [facility] Last Admin: 07/06/18 07:47 Dose: 35 units Insulin Human Lispro (Humalog*) 0 units SUBCUT ACHS [facility]; Protocol Last Admin: 07/06/18 07:48 Dose: 3 units Loperamide HCl (Imodium Cap*) 2 mg PO .SEE DIRECTIONS PRN PRN Reason: DIARRHEA Last Admin: 07/02/18 08:43 Dose: 2 mg Metformin HCl (Glucophage*) 500 mg PO 0800,1700 [facility] Last Admin: 07/06/18 07:49 Dose: 500 mg Metoprolol Tartrate (Lopressor Tab*) 100 mg PO BID [facility] Last Admin: 07/06/18 07:50 Dose: 100 mg Multivitamins (Theragran Tab*) 1 tab PO DAILY [facility] Last Admin: 07/06/18 07:49 Dose: 1 tab Trazodone HCl (Desyrel Tab*) 50 mg PO BEDTIME PRN PRN Reason: SLEEP Discharge Planning: Prescriptions provided for discharge [x] Yes [] No Follow up care details as per social work arrangements: [facility] intake primary care- [facility] cardiology- Dr Andrade Patient response to discharge plan: [x] eager for discharge [x] agreeable with discharge plan [] ambivalent about discharge [] disagrees with discharge today
--- NOTE | 2018-07-07 13:02 | DS ---
CC: [facility], [facility]; Dr. Herman; Dr. Taurus Andrade* DISCHARGE SUMMARY: DATE OF ADMISSION: 06/29/18 DATE OF DISCHARGE: 07/06/18 SUPERVISING PSYCHIATRIST: Dr. Hunter Pedroza* (dictated by KATIA Quiroz) . DISCHARGE DIAGNOSES: 1. Schizoaffective disorder, depressed type. 2. Alcohol use disorder. 3. Binge eating disorder. CONDITION AT THE TIME OF DISCHARGE: Improved. The patient is euthymic with bright affect. He denies suicidal ideation. He has been safe on all checks. He reports readiness for discharge. Per staff, he has been expressing readiness over the weekend as well. The patient reports improved mood. He is encouraged to follow up with outpatient landscape architect and primary care for medical comorbidities. He states hopefulness in regards to attending [facility] at [facility]. Patient is discharged to home. MENTAL STATUS EXAM: Elias is a 48-year-old white male, who appears stated age. He is morbidly obese and dressed in his own clothing. He is well groomed and ADLs are completed. The patient is alert and oriented x3. Eye contact is good. Concentration is good. Memory 3/3. The patient is euthymic with bright affect. He reports his mood is "good." Thought process is logical, goal directed. Thought content is negative for suicidal ideation or passive wish. He denies auditory or visual hallucinations. Insight and judgment are fair, improved. Fund of knowledge is adequate. INSTRUCTIONS GIVEN TO THE PATIENT: A. Medications: 1. Apixaban (Eliquis) 5 mg p.o. b.i.d. 2. Aripiprazole 10 mg p.o. daily. 3. Atorvastatin 40 mg p.o. daily. 4. Gabapentin 300 mg p.o. b.i.d. 5. Insulin glargine (Lantus) 35 units subcutaneous daily. 6. Insulin lispro sliding scale for BMI over 30. 7. Loperamide 2 mg p.r.n. diarrhea or loose stool. 8. Metformin 500 mg p.o. at 0800 and 1700. 9. Metoprolol tartrate 100 mg p.o. b.i.d. 10. Multivitamin 1 p.o. daily. 11. Trazodone 50 mg p.o. q.h.s. p.r.n. insomnia. B. Diet: Consistent carbohydrate diet. C. Activity: Ambulation as tolerated. Tobacco cessation: The patient declined referral to [facility] Smokers' quitline and declined offer of nicotine replacement. Pending labs and diagnostic studies: Home glucose via fingersticks per primary care provider. D. Followup care: The patient has orientation with the [facility] program on day after discharge and an intake with [facility] next week. He is encouraged to call his primary care provider to set up followup with Dr. Herman. This radio news writer attempted to call, was on hold for 20 plus minutes. The patient states that he knows the best times to call and the patient is instructed to follow up with landscape architect, Dr. Andrade. E. Substance use followup: The patient declines offer of substance use treatments or medications. HOSPITAL COURSE: Part A. Reason for admission: The patient presented to the emergency department with suicidal ideation and a recent attempt to drink himself to . Chief complaint: "I live suicidally." HPI: Elias is a 48-year-old white male, mentally disabled, domiciled, with a known history of schizoaffective disorder and multiple medical comorbidities, who presented to the emergency department voluntarily requesting admission due to suicidal ideation. He is known to us from previous admissions and has past diagnoses of alcohol dependence, schizoaffective disorder, and cluster B traits. He is historically nonadherent to outpatient treatment. He was last hospitalized with us in October of 2017. At that time, we referred him to the ACT team. The patient states he was with them for about a month until he had significant stressors involving his mother's health. He needed to assist in closing her estate and relocating her to [facility]. He states that this has been very helpful for both of them as she is unable to live alone and the patient is unable to assist her in any sort of capacity, even though he tries to. The patient states he was doing relatively well until his adult daughter showed up unannounced because she was homeless at the beginning of this month. This was the first time he saw her in over a year. She was staying with him and he was encouraging her to utilize social organization professor to find new housing. She absconded his diabetic supplies and medications. When she would not leave at his request, he phoned police and identified that she had a warrant for her arrest in another county. He has not seen her or had contact with her since then. The patient states he utilized binging on alcohol and food for emotional relief. He states he drank a copious amount of gin in the last few days. The patient reports he has not been following through on medical appointments with the exception of his primary care provider, Dr. Herman. The patient states he was "working on" getting into the [facility] program at [facility] prior to his daughter arriving. The patient endorses feeling mood lability, especially with irritability and anxiousness. He states he is agitated quickly and having difficulty sleeping. He states he sleeps an hour or two at a time and has been diagnosed with sleep apnea in the past. The patient endorses drinking in an attempt to suicide. He states that he is behind on a couple of bills, but denies other psychosocial stressors than listed above. He denies HI or . He reports he spends most days at the [facility] and either keeps to himself or interacts with select people. Part B. Psychiatric treatment rendered: The patient was admitted to adult behavioral services unit on voluntary status. Code status was full. He was placed on 15-minute checks for his safety and this was decreased to 30-minute checks. The patient reported desire to remain in the hospital over the holiday weekend for stabilization. We resumed his usual regimen for diabetes management and added metformin 500mg b.i.d. as his A1c was 9.0. The patient was calm and in behavioral control on the unit. He participated in some groups , otherwise seclusive to room and napped often. He was medication compliant. He denied suicidal ideation throughout his stay. He reported relief in potentially connecting with the [facility] program. The patient is at chronic elevated risk for suicide based on prior history and diagnostic profile. At the time of discharge, risk was lessened due to stabilization in the hospital. KATIA QUIROZ [id number]/[facility] #: [id number] [place]
== END 2018-07-06 11:43 | disposition home or self-care (01) | DRG 750 ==
LOC: ED 14:46 → BSU 20:05
PROVIDERS: ADMIT Psychiatry & Neurology Psychiatry; ATTEND Psychiatry & Neurology Psychiatry
DX: F25.1 Schizoaffective disorder, depressive type (principal); R45.851 Suicidal ideations; I48.92 Unspecified atrial flutter; F10.10 Alcohol abuse, uncomplicated; Y90.0 Blood alcohol level of less than 20 mg/100 ml; F50.81 Binge eating disorder; E66.01 Morbid (severe) obesity due to excess calories; E11.9 Type 2 diabetes mellitus without complications; G47.30 Sleep apnea, unspecified; E78.00 Pure hypercholesterolemia, unspecified; E78.5 Hyperlipidemia, unspecified; E03.9 Hypothyroidism, unspecified; J30.81 Allergic rhinitis due to animal (cat) (dog) hair and dander; Z68.37 Body mass index [BMI] 37.0-37.9, adult; Z79.01 Long term (current) use of anticoagulants; Z79.84 Long term (current) use of oral hypoglycemic drugs; Z79.899 Other long term (current) drug therapy; Z91.19 Patient's noncompliance with other medical treatment and regimen
CPT/HCPCS: 36415; 80053; 80061; 80307; 80320; 80329; 81003; 82947; 83036; 83721; 84443; 85025; 90853; 99222; 99231; 99283; A9270-GY; G0480

== ENCOUNTER 2018-11-23 16:08 | Emergency (ER) | payer OTHER ==
[2018-11-23 16:34] LABS: Hematocrit 40 % (42-52); Hemoglobin 13.8 g/dL (14.0-18.0); Mean Corpuscular HGB Conc 34 g/dL (31-36); Mean Corpuscular Hemoglobin 36 pg (27-31); Mean Corpuscular Volume 103 fL (80-94); Mean Platelet Volume 7.2 fL (7.4-10.4); Platelet Count 262 10^3/uL (150-450); Red Blood Count 3.88 10^6 /uL (4.18-5.48); Red Cell Distribution Width 14 % (10-15); White Blood Count 13.1 10^3/uL (3.5-10.8)
[2018-11-23 16:42] LABS: INR 1.15 (0.82-1.09)
[2018-11-23 16:46] LABS: Albumin 4.5 g/dL (3.2-5.2); Calcium 9.8 mg/dL (8.6-10.3); Potassium 4.1 mmol/L (3.5-5.0); Total Bilirubin 2.9 mg/dL (0.2-1.0)
[2018-11-23 16:52] LABS: Albumin/Globulin Ratio 1.4 (1-3); BUN/Creatinine Ratio 25.7 (8-20); EGFR African American 144.4 (>60); EGFR Non-African American 119.4 (>60); Globulin 3.2 g/dL (2-4); Total Protein 7.7 g/dL (6.4-8.9)
[2018-11-23 17:06] LABS: ABS Eosinophils 0.4 10^3/ul (0-0.6); ABS Lymphocytes 3.7 10^3/ul (1.0-4.8); ABS Monocytes 0.8 10^3/ul (0-0.8); ABS Neutrophils 8.1 10^3/ul (1.5-7.7); Eosinophil % 2.9 %; Lymphocyte % 28.5 %; Nucleated Red Blood Cells % 0.1
--- NOTE | 2018-11-23 17:08 | ED ---
HPI Chest Pain - HPI Summary HPI Summary: 48-year-old male presents with occasional sharp chest pain in the center of his chest. He states that he's had a cough for the past couple weeks and when he coughs it makes the pain worst. He denies any shortness of breath. He states sometimes gets the pain when he takes a deep breath. No nausea vomiting. No diaphoresis. Has been taking his medications. He states that he was supposed to have an EP study done in April but did not follow-up. He ran out of [employer] today. He states he is trying to be health and trying to quit smoking. Does have family history of cardiac disease. Did not take anything for his symptoms. No abdominal pain. denies any current pain. believes it is related to his cough. has history of high blood pressure diabetes. - History of Current Complaint Chief Complaint: EDChestPainROMI Time Seen by Provider: 11/23/18 16:55 Pain Intensity: 5 - Additional Pertinent History Primary Care Physician: [id number] - Allergy/Home Medications Allergies/Adverse Reactions: Allergies Allergy/AdvReac Type Severity Reaction Status Date / Time cat dander Allergy Eyes Verified 12/25/17 18:11 Itchy/Swollen/Red/Watery Home Medications: Home Medications Insulin Glargine,Hum.rec.anlog [Basaglar Kwikpen] 45 unit SUBCUT DAILY 11/23/18 [History Confirmed 11/23/18] Insulin Lispro [Admelog] 8 unit SUBCUT AC 11/23/18 [History Confirmed 11/23/18] metFORMIN* [Glucophage 500 MG TAB *] 500 mg PO BID 11/23/18 [History Confirmed 11/23/18] PMH/Surg Hx/FS Hx/Imm Hx Endocrine/Hematology History: Reports: Hx Diabetes, Hx Thyroid Disease Denies: Hx Anticoagulant Therapy Cardiovascular History: Reports: Hx Hypercholesterolemia, Hx Hypertension, Other Cardiovascular Problems/Disorders - cardac ablasion procedure Denies: Hx Congestive Heart Failure, Hx Deep Vein Thrombosis, Hx Myocardial Infarction, Hx Pacemaker/ICD, Hx Peripheral Vascular Disease Respiratory History: Reports: Hx Asthma - He used inhalers when he had bronchitis., Hx Sleep Apnea Denies: Hx Chronic Obstructive Pulmonary Disease (COPD), Hx Lung Cancer, Hx Pneumonia, Hx Pulmonary Embolism Comment Only: Other Respiratory Problems/Disorders - Bronchitis in Mar 2015 GI History: Reports: Other GI Disorders - enlarged liver Denies: Hx Gall Bladder Disease, Hx Gastrointestinal Bleed, Hx Ulcer, Hx Urosepsis History: Denies: Hx Kidney Stones, Hx Renal Disease Musculoskeletal History: Reports: Other Musculoskeletal History - bilateral knee pain Denies: Hx Arthritis, Hx Osteoporosis Sensory History: Reports: Hx Contacts or Glasses - needs glasses per pt Denies: Hx Hearing Aid Opthamlomology History: Reports: Hx Contacts or Glasses - needs glasses per pt Neurological History: Denies: Hx Dementia, Hx Migraine, Hx Seizures, Hx Transient Ischemic Attacks (TIA) Psychiatric History: Reports: Hx Anxiety, Hx Eating Disorder - too much, Hx Depression, [place] [facility] [place] [facility], Hx of Violent Episodes Against Others, Hx Substance Abuse, Other Psychiatric Issues/Disorders - schizoaffective disorder Denies: Hx Attention Deficit Hyperactivity Disorder, Hx Panic Disorder, Hx Post Traumatic Stress Disorder, Hx Schizophrenia, Hx Bipolar Disorder, Hx Suicide Attempt - Surgical History Surgery Procedure, Year, and Place: fistula removed at [facility] in 2006 Hx Anesthesia Reactions: No Infectious Disease History: No Infectious Disease History: Denies: Hx Clostridium Difficile, Hx Hepatitis, Hx Human Immunodeficiency Virus (HIV), Hx of Known/Suspected MRSA, Hx Shingles, Hx Tuberculosis, Hx Known/ Suspected VRE, Hx Known/Suspected VRSA, History Other Infectious Disease, Traveled Outside the US in Last 30 Days - Family History Known Family History: Positive: Other - Positive EtOH dependence in biological parents - Social History Alcohol Use: every other day Alcohol Amount: 350 ml of vodka - states he quit Hx Substance Use: Yes Substance Use Type: Reports: None Substance Use Comment - Amount & Last Used: Occasionally- 10 days ag = states no more Hx Tobacco Use: Yes Smoking Status (MU): Current Every Day Smoker Type: Cigarettes Amount Used/How Often: States smoking "1 or 2 cigars a couple of times a week" Length of Time of Smoking/Using Tobacco: 1/2 PPD Have You Smoked in the Last Year: Yes Review of Systems Negative: Fever Positive: Chest Pain Positive: Cough. Negative: Shortness Of Breath All Other Systems Reviewed And Are Negative: Yes Physical Exam Triage Information Reviewed: Yes Vital Signs On Initial Exam: Initial Vitals Temp Pulse Resp BP Pulse Ox 98.2 F 81 19 156/85 95 11/23/18 16:13 11/23/18 16:13 11/23/18 16:13 11/23/18 16:13 11/23/18 16:13 Vital Signs Reviewed: Yes Appearance: Positive: Well-Appearing Skin: Positive: Warm, Dry Head/Face: Positive: Normal Head/Face Inspection Eyes: Positive: Normal, Conjunctiva Clear ENT: Positive: Pharynx normal Respiratory/Lung Sounds: Positive: Clear to Auscultation, Breath Sounds Present Cardiovascular: Positive: Normal, RRR Abdomen Description: Positive: Nontender, Soft Bowel Sounds: Positive: Present Musculoskeletal: Positive: Normal Neurological: Positive: Normal Psychiatric: Positive: Normal Procedures - Sedation Patient Received Moderate/Deep Sedation with Procedure: No Diagnostics - Vital Signs Vital Signs Temp Pulse Resp BP Pulse Ox 11/23/18 17:00 81 19 94 11/23/18 16:52 77 17 127/85 93 11/23/18 16:13 98.2 F 81 19 156/85 95 - Laboratory Lab Results: Lab Results 11/23/18 11/23/18 11/23/18 Range/Units 16:26 16:26 16:26 WBC 13.1 H (3.5-10.8) 10^3/uL RBC 3.88 L (4.18-5.48) 10^6 /uL Hgb 13.8 L (14.0-18.0) g/dL Hct 40 L (42-52) % MCV 103 H (80-94) fL MCH 36 H (27-31) pg MCHC 34 (31-36) g/dL RDW 14 (10-15) % Plt Count 262 (150-450) 10^3/uL MPV 7.2 L (7.4-10.4) fL Neut % (Auto) 62.1 % Lymph % (Auto) 28.5 % [place] % (Auto) 6.3 % Eos % (Auto) 2.9 % Baso % (Auto) 0.2 % Absolute Neuts (auto) 8.1 H (1.5-7.7) 10^3/ul Absolute Lymphs (auto) 3.7 (1.0-4.8) 10^3/ul Absolute Monos (auto) 0.8 (0-0.8) 10^3/ul Absolute Eos (auto) 0.4 (0-0.6) 10^3/ul Absolute Basos (auto) 0.0 (0-0.2) 10^3/ul Absolute Nucleated RBC 0.0 10^3/ul Nucleated RBC % 0.1 INR (Anticoag Therapy) 1.15 H (0.82-1.09) Sodium 134 L (135-145) mmol/L Potassium 4.1 (3.5-5.0) mmol/L Chloride 101 (101-111) mmol/L Carbon Dioxide 25 (22-32) mmol/L Anion Gap 8 (2-11) mmol/L BUN 18 (6-24) mg/dL Creatinine 0.70 (0.67-1.17) mg/dL Est GFR ( Amer) 144.4 (>60) Est GFR (Non-Af Amer) 119.4 (>60) BUN/Creatinine Ratio 25.7 H (8-20) Glucose 184 H (70-100) mg/dL Calcium 9.8 (8.6-10.3) mg/dL Total Bilirubin 2.90 H (0.2-1.0) mg/dL AST 21 (13-39) U/L ALT 23 (7-52) U/L Alkaline Phosphatase 64 (34-104) U/L Troponin I 0.00 (<0.04) ng/mL Total Protein 7.7 (6.4-8.9) g/dL Albumin 4.5 (3.2-5.2) g/dL Globulin 3.2 (2-4) g/dL Albumin/Globulin Ratio 1.4 (1-3) Result Diagrams: 11/23/18 16:26 11/23/18 16:26 Lab Statement: Any lab studies that have been ordered have been reviewed, and results considered in the medical decision making process. - Radiology chest Radiology Interpretation Completed By: Radiologist Summary of Radiographic Findings: IMPRESSION: NO ACTIVE CARDIOPULMONARY DISEASE. - EKG No standard instances Cardiac Rate: NL EKG Rhythm: Sinus Rhythm EKG Comparison: No Significant Change Summary of EKG Findings: sinus rhythm Re-Evaluation - Re-Evaluation First Eval Re-Evaluation Time: 19:17 Change: Improved Comment: no chest pain Second Eval Re-Evaluation Time: 19:49 Change: Unchanged Comment: no chest pain Chest Pain Course/Dx - Course Course Of Treatment: 48-year-old male presents with occasional sharp chest pain in the center of his chest. He states that he's had a cough for the past couple weeks and when he coughs it makes the pain worst. He denies any shortness of breath. He states sometimes gets the pain when he takes a deep breath. No nausea vomiting. No diaphoresis. Has been taking his medications. He states that he was supposed to have an EP study done in April but did not follow-up. He ran out of [employer] today. He states he is trying to be health and trying to quit smoking. Does have family history of cardiac disease. Did not take anything for his symptoms. No abdominal pain. denies any current pain. believes it is related to his cough. has history of high blood pressure diabetes. On exam lungs CTA. EKG shows sinus rhythm. troponin x2 zero. d- dimer neg. patient is chest pain free. symptoms likely due to recent bronchitis. told follow up with cardiology. patient will contact primary about eliquis script. told if develop chest pain again to return. patient understand and agrees with plan. - Chest Pain Differential Diagnosis/HQI/PQRI: Angina, Chest Wall, Pulmonary Embolism - Diagnoses Provider Diagnoses: Atypical chest pain Discharge ED - Sign-Out/Discharge Documenting (check all that apply): Patient Departure - Discharge Plan Condition: Good Disposition: HOME Patient Education Materials: Chest Pain (ED) Referrals: Margarita Herman MD [Primary Care Provider] - Emery Andrade DO [Medical Doctor] - Additional Instructions: follow up with cardiology within 5 days call primary tomorrow about eliquis refill Return to ED if develop chest pain, shortness of breath or any new or worsening symptoms - Billing Disposition and Condition Condition: GOOD Disposition: Home
[2018-11-23 17:33] LABS: C Reactive Protein 12.47 mg/L (<8.01)
[2018-11-23] MEDS ORDERED: Apixaban* 5 MG TAB PO ONE ×2 (19:30→19:50)
[2018-11-23 20:19] VITALS: BP 141/89
== END 2018-11-23 20:20 | disposition home or self-care (01) ==
LOC: ED 16:08
DX: R07.89 Other chest pain (principal); F17.210 Nicotine dependence, cigarettes, uncomplicated; E11.9 Type 2 diabetes mellitus without complications; E78.00 Pure hypercholesterolemia, unspecified; I10 Essential (primary) hypertension; Z79.4 Long term (current) use of insulin
CPT/HCPCS: 36415; 71046; 80053; 83880; 84484; 85025; 85379; 85610; 86140; 93005; 99284

== ENCOUNTER 2019-03-31 12:37 | Inpatient (IN) | payer OTHER ==
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
[2019-03-31 13:06] LABS: ABS Basophils 0.1 10^3/ul (0-0.2); ABS Eosinophils 0.4 10^3/ul (0-0.6); ABS Lymphocytes 2.2 10^3/ul (1.0-4.8); ABS Monocytes 0.6 10^3/ul (0-0.8); ABS Neutrophils 4.7 10^3/ul (1.5-7.7); Eosinophil % 5.2 %; Hematocrit 46 % (42-52); Hemoglobin 16.5 g/dL (14.0-18.0); Lymphocyte % 27.7 %; Mean Corpuscular HGB Conc 36 g/dL (31-36); Mean Corpuscular Hemoglobin 34 pg (27-31); Mean Corpuscular Volume 93 fL (80-94); Mean Platelet Volume 7.2 fL (7.4-10.4); Nucleated Red Blood Cells % 0.1; Platelet Count 228 10^3/uL (150-450); Red Blood Count 4.91 10^6 /uL (4.18-5.48); Red Cell Distribution Width 14 % (10-15)
[2019-03-31] MEDS ORDERED: Acetaminophen TAB* 325 MG PO PRN (13:41)
[2019-03-31] MEDS ORDERED: Al Hydrox/Mg Hydrox/Simet LIQ* 30 ML UDC PO PRN (13:41)
--- OUTSIDE RECORDS SUMMARY | 2019-03-31 13:41 | XMS REPORT ---
:1970 Author Organization [facility] Care Team Providers Name Role Phone NIALL EDWARDS Primary Care Physician Unavailable Allergies, Adverse Reactions, Alerts Allergy Code CodeSystem Reaction Severity Criticality Status Start Substance Date nkda Moderate Active Medications Medication Medication Medication Start Stop Route Dose Status Fill Code CodeSystem Date Date Instructions gabapentin 111506 RxNorm 2019-1 oral 300 mg 1 active Take 1 0-22 capsule capsule twice a twice a day day for 30 day(s) aripiprazole 384717 RxNorm 2019- oral 5 mg completed for 15 10-22 tablet day(s) gabapentin 938253 RxNorm 2019- oral 300 mg completed for 30 10-22 capsule day(s) atorvastatin 224121 RxNorm oral 40 mg active for 30 tablet day(s) metoprolol 459147 RxNorm oral 100 mg active for 30 tartrate tablet day(s) aripiprazole 960608 RxNorm 2019-1 oral 5 mg 1 active Take 1 tablet 0-22 tablet by mouth twice a twice a day day for 30 day(s) Problems Problem Name Code CodeSystem Alternate Alternate Start End Status Narrative Code CodeSystem Date Date Schizoaffective 85570851 SNOMED-CT 2019-0 Active disorder, 3-22 Depressive type Schizoaffective 88900043 SNOMED-CT 2019-0 Active disorder, 3-22 Depressive type Relevant diagnostic tests/laboratory data Narrative No Information Procedures Procedure Code CodeSystem Target Date of Status Service Device Device Device Name Site Procedure Delivery Code Name UID Location Psychiatric [id number] SNOMED-CT () 2018-11-30 complete Mental diagnostic 85 d Health- evaluation [address], [id number] Office or [id number] SNOMED-CT () 2019-02-22 complete Mental other 6 d Health- outpatient [facility] visit for [address], [facility], of an [place], established [id number] patient, [id number] which requires at least 2 of these 3 connor components: A problem focused history; A problem focused examination; Straightforw emmanuel medical decision making. Counselin SNOMED-CT () 2018-12-13 complete Mental d [address], [id number] [id number] SNOMED-CT () 2019-03-01 complete Mental d [address], [id number] [id number] SNOMED-CT () 2018-10-08 complete Mental d [address], [id number] [id number] SNOMED-CT () 2018-10-19 [facility] Mental d [address], [id number] [id number] SNOMED-CT () 2018-08-11 complete Mental d [address], [id number] [id number] SNOMED-CT () 2018-09-07 complete Mental d [address], [id number] [phone] Encounters/Encounter Diagnoses Encounter Name Encounter Diagnosis Diagnosis Name Diagnosis Date of Service Code Code CodeSystem Diagnosis Delivery Location [facility] [id number] Schizoaffective SNOMED-CT 2019-03-01 Behavioral Individual 30 disorder, Health min Depressive type Clinic [address] [place] [address], [id number] Vital Signs No Information Social History Element Description Description Start End Code CodeSystem AdditionalInfo Date Date SexAssignedAtBirth Male 1971-0 M AdministrativeGender -03 Hospital Discharge Instructions Reason For Referral Medical Equipment FDA Assessments
[2019-03-31] MEDS ORDERED: traZODone TAB* 50 MG TAB PO PRN (13:42)
[2019-03-31 13:49] LABS: ALT 40 U/L (7-52); Acetaminophen < 15 mcg/mL; Albumin 4.4 g/dL (3.2-5.2); Albumin/Globulin Ratio 1.3 (1-3); Alcohol < 10 mg/dL (<10); Alkaline Phosphatase 62 U/L (34-104); BUN/Creatinine Ratio 21.7 (8-20); Blood Urea Nitrogen 15 mg/dL (6-24); CO2 Carbon Dioxide 20 mmol/L (22-32); Calcium 9.3 mg/dL (8.6-10.3); Chloride 99 mmol/L (101-111); EGFR African American 146.3 (>60); EGFR Non-African American 120.9 (>60); Globulin 3.4 g/dL (2-4); Glucose 304 mg/dL (70-100); Salicylate < 2.50 mg/dL (<30); Sodium 130 mmol/L (135-145); Total Protein 7.8 g/dL (6.4-8.9)
[2019-03-31 14:06] LABS: Anion Gap 11 mmol/L (2-11)
[2019-03-31] MEDS: ARIPiprazole TAB* 5 MG PO SCH (15:55)
[2019-03-31] MEDS: Insulin LISPRO* 1 UNITS UNIT SUBCUT SCH (16:48)
[2019-03-31] MEDS: Gabapentin CAP(*) 300 MG PO SCH (20:53)
[2019-03-31] MEDS: metFORMIN* 500 MG TAB PO SCH (20:53)
[2019-03-31] MEDS: Metoprolol Tartrate TAB* 100 MG TAB PO SCH (20:54)
[2019-03-31] MEDS: Apixaban* 5 MG TAB PO SCH (20:55)
[2019-04-01 07:00] LABS: HDL Cholesterol 27.7 mg/dL; Potassium Redraw 4.1 mmol/L (3.5-5.0)
[2019-04-01] MEDS: metFORMIN* 500 MG TAB PO SCH ×2 (07:56→21:02)
[2019-04-01] MEDS: ARIPiprazole TAB* 5 MG PO SCH (07:56)
[2019-04-01] MEDS: Apixaban* 5 MG TAB PO SCH ×2 (07:57→21:01)
[2019-04-01] MEDS: Metoprolol Tartrate TAB* 100 MG TAB PO SCH ×2 (07:57→21:02)
[2019-04-01] MEDS: Insulin LISPRO* 1 UNITS UNIT SUBCUT SCH ×3 (07:57→16:59)
[2019-04-01] MEDS: Gabapentin CAP(*) 300 MG PO SCH ×2 (07:57→21:01)
[2019-04-01] MEDS: Insulin GLARGINE(*) 1 UNITS UNIT SUBCUT SCH (07:58)
[2019-04-01] MEDS: Atorvastatin* 40 MG TAB PO SCH (09:37)
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
[2019-04-02] MEDS: Insulin LISPRO* 1 UNITS UNIT SUBCUT SCH ×3 (07:45→16:51)
[2019-04-02] MEDS: metFORMIN* 500 MG TAB PO SCH ×2 (08:27→21:06)
[2019-04-02] MEDS: Apixaban* 5 MG TAB PO SCH ×2 (08:27→21:06)
[2019-04-02] MEDS: Gabapentin CAP(*) 300 MG PO SCH ×2 (08:27→21:06)
[2019-04-02] MEDS: Metoprolol Tartrate TAB* 100 MG TAB PO SCH ×2 (08:28→21:06)
[2019-04-02] MEDS: ARIPiprazole TAB* 5 MG PO SCH (08:28)
[2019-04-02] MEDS: Atorvastatin* 40 MG TAB PO SCH (08:28)
[2019-04-02] MEDS: Insulin GLARGINE(*) 1 UNITS UNIT SUBCUT SCH (08:34)
--- NOTE | 2019-04-02 14:48 | PN ---
Subjective - Subjective Date of Service: 04/02/19 Service Type: 84699 Hosp care 25 min moderate complexity Subjective: Niall was in bed right after lunch and says he is just tired. per nursing he hasn't been out a lot other than for meds and meals. Says he thought about suicide twice yesterday and heard voices also at that time. Appears to be severely depressed and flat. Objective - General Observations Appearance: Disheveled, Malodorous Appears Stated Age: Yes Stature: Overweight, Tall Posture: WNL Eye Contact: Avoidant Behavior/Activity: Slowed - Interaction Observations Attitude Towards Examiner: Cooperative Stated Mood: Dysphoric Affect: Flat Speech Pattern/Tone: Delayed, Quiet Volume Perception: WNL Thought Content: Depressive, Paranoid Thought Process: Lethality: Passive Wish Hallucination Type: Auditory Delusion Type: Denies - Cognitive Function Orientation: Person, Place, Situation Level of Consciousness: Awake, Alert Cognition: WNL Estimated Intelligence: Normal Insight: Difficulty Acknowledging Presence of Psyciatric Problems Judgment Within Normal Limits: No Ability to Make Reasonable Decisions: Serverely Impaired - Medication Compliance Cooperative with Inpatient Medication Regimen: Yes - Group Participation Participates in Group Activities: No Assessment - Assessment Merits Inpatient Hospitalization: For Immediate Safety, For Stabilization, For Discharge Planning Clinical Impression: Niall is severely depressed and psychotic and was suicidal yesterday. Plan - Plan Treatment Plan: Name: NIALL HAYES Birthdate: 1970 [id number] Continued Medication Management: Continue Outpt Medication Medications: Current Medications Acetaminophen (Tylenol Tab*) 650 mg PO Q4H PRN PRN Reason: for pain; or Temp >101 F Al Hydrox/Mg Hydrox/Simethicone (Maalox Plus*) 30 ml PO Q4H PRN PRN Reason: INDIGESTION Apixaban (Eliquis*) 5 mg PO BID [facility] Last Admin: 04/02/19 08:27 Dose: 5 mg Aripiprazole (Abilify Tab*) 10 mg PO DAILY [facility] Last Admin: 04/02/19 08:28 Dose: 10 mg Atorvastatin Calcium (Lipitor*) 40 mg PO DAILY [facility] Last Admin: 04/02/19 08:28 Dose: 40 mg Gabapentin (Neurontin Cap(*)) 300 mg PO BID [facility] Last Admin: 04/02/19 08:27 Dose: 300 mg Insulin Glargine (Lantus(*)) 45 units SUBCUT DAILY [facility] Last Admin: 04/02/19 08:34 Dose: 45 units Insulin Human Lispro (Humalog*) 8 units SUBCUT AC [facility] Last Admin: 04/02/19 11:27 Dose: 8 unit Metformin HCl (Glucophage*) 500 mg PO BID [facility] Last Admin: 04/02/19 08:27 Dose: 500 mg Metoprolol Tartrate (Lopressor Tab*) 100 mg PO BID [facility] Last Admin: 04/02/19 08:28 Dose: 100 mg Trazodone HCl (Desyrel Tab*) 50 mg PO BEDTIME PRN PRN Reason: SLEEP - Discharge Plan Discharge Plan: Consider Longer Term Tx
[2019-04-03] MEDS: Apixaban* 5 MG TAB PO SCH ×2 (07:54→20:59)
[2019-04-03] MEDS: ARIPiprazole TAB* 5 MG PO SCH (07:54)
[2019-04-03] MEDS: Atorvastatin* 40 MG TAB PO SCH (07:55)
[2019-04-03] MEDS: Gabapentin CAP(*) 300 MG PO SCH ×2 (07:55→21:02)
[2019-04-03] MEDS: Metoprolol Tartrate TAB* 100 MG TAB PO SCH ×2 (07:56→21:00)
[2019-04-03] MEDS: metFORMIN* 500 MG TAB PO SCH ×2 (07:56→20:59)
[2019-04-03] MEDS: Insulin LISPRO* 1 UNITS UNIT SUBCUT SCH ×3 (08:11→17:00)
[2019-04-03] MEDS: Insulin GLARGINE(*) 1 UNITS UNIT SUBCUT SCH (08:12)
[2019-04-04] MEDS: Atorvastatin* 40 MG TAB PO SCH (08:52)
[2019-04-04] MEDS: Metoprolol Tartrate TAB* 100 MG TAB PO SCH (08:52)
[2019-04-04] MEDS: ARIPiprazole TAB* 5 MG PO SCH (08:52)
[2019-04-04] MEDS: metFORMIN* 500 MG TAB PO SCH (08:52)
[2019-04-04] MEDS: Apixaban* 5 MG TAB PO SCH (08:52)
[2019-04-04] MEDS: Gabapentin CAP(*) 300 MG PO SCH (08:52)
[2019-04-04] MEDS: Insulin GLARGINE(*) 1 UNITS UNIT SUBCUT SCH (08:54)
[2019-04-04] MEDS: Insulin LISPRO* 1 UNITS UNIT SUBCUT SCH (08:55)
[2019-04-04 09:09] VITALS: BP 152/76
--- NOTE | 2019-04-06 00:53 | DS ---
CC: Dr. Herman; [facility] * DISCHARGE SUMMARY: DATE OF ADMISSION: 03/31/19 DATE OF DISCHARGE: 04/04/19 SUPERVISING PSYCHIATRIST: Dr. Hunter Pedroza.* (DICTATED BY JEFF SANCHEZ NP) DISCHARGE DIAGNOSES: 1. Schizoaffective disorder, depressed type. 2. Diabetes mellitus. 3. Hyperlipidemia. CONDITION AT TIME OF DISCHARGE: Improved. The patient is euthymic, pleasant upon approach. He denies suicidal ideation. He reports feeling better and ready for discharge. He states that he has a supply of Abilify at home as well as gabapentin. He requests insulin refills. On the unit, he was primarily seclusive other than medications and meals. He denied auditory hallucination 2 days prior to discharge. He denies suicidal ideation or passive wish. While on the unit, the patient utilized the CPAP machine at bedtime which he reported to be very helpful. He felt more rested. He is looking forward to meeting with a new rn case mgr tomorrow to assist with access to medical appointments. The patient is discharged to home. MENTAL STATUS EXAM: Elias is a 49-year-old white male who appears stated age. He is morbidly obese and dressed in his own clothing. He is adequately groomed. The patient is alert and oriented x3. Eye contact is fair. His mood is "good." Affect is blunted. Thought process is logical, goal directed, and coherent. Thought content is negative for suicidal ideation or passive wish. He denies auditory or visual hallucinations. Concentration good. Memory 3/ 3. Insight and judgment are fair. Fund of knowledge is excellent. He has an estimated average intelligence by virtue of vocabulary and educational attainment. INSTRUCTIONS GIVEN TO THE PATIENT: A. Medications: 1. Aripiprazole 10 mg p.o. daily. 2. Atorvastatin 40 mg p.o. daily. 3. Gabapentin 300 mg p.o. b.i.d. 4. Insulin glargine 45 units subcutaneous daily. 5. Insulin Lispro sliding scale 8 units subcutaneous before meals. 6. Metformin 500 mg p.o. b.i.d. 7. Metoprolol 100 mg p.o. b.i.d. 8. Trazodone 50 mg p.o. q.h.s. p.r.n. insomnia. B. Diet: Consistent carbohydrate diet, low fat. C. Activity: Ambulation as tolerated. Tobacco cessation is not applicable. There are no pending labs or diagnostic studies. D. Followup Care: The patient will return to [facility] and has an appointment with Rajendra Perez on , 04/07/[address] Charles the same day. He will meet with Missy Rizzo in regards to case management, and he is referred back to Dr. Herman for primary care. The patient reports preference to make his own appointment. E. Substance use followup: Not applicable. HOSPITAL COURSE: Part A. Reason for admission: The patient presented to the emergency department with suicidal ideation and a plan to overdose on medications. Chief complaint: "I just give up during a crisis." HPI: Elias is a 49-year-old white male, mentally disabled, domiciled, with a known history of schizoaffective disorder and multiple medical comorbidities, who presented to the emergency department voluntarily requesting admission due to suicidal ideation. He is known to us from previous admission and has past diagnoses of schizoaffective disorder, cluster B traits, and alcohol dependence. He was last hospitalized with us on 06/28/18. Presentation today is similar. His daughter came to his house last month, and despite his attempts at monitoring her, she has sneakily obtained his gabapentin from the bathroom. Elias states that she also visited his mom, her grandma, at [facility] and stole money from her. He states this was very frustrating for him and he stopped taking medications and isolated in his apartment. He reports he stopped drinking a few weeks ago and that he is "done with it." He states he has been watching Youtube videos about alcoholism and that he is 49 years old and that he should not be doing this any longer. His alcohol level was negative upon arrival to the ED. He has a history of diabetes and also has been noncompliant with these medications in the past few weeks. He reports frustration with following up on medical appointments due to his transportation. The patient is familiar with underwriter mortgage loan and cooperative and answers questions fully. He reports feeling depressed and having thoughts of suicide. He requested a CPAP machine last night and states that he slept for the first time throughout the night for a very long time. He reports waking up feeling physically good due to this. He goes on to discuss his frustration with missing medical appointments due to transportation. He states that he wants to follow up with the team member and be connected with a sleep specialist in order to have a CPAP at home. I asked him about his history with CAPS management and he states he has not done that for about a year. He states he has an appointment with someone for case management through [facility] next Thursday. With his permission, I phoned his community nurse therapist Rajendra Perez. Rajendra states that Elias often has difficulty with getting to the appointments and it is true that he has trouble with transportation, but he also has underlying paranoid ideation. Otherwise, Elias is in good standing of [facility] and he and Mr. Perez have a positive rapport. Pat B: Psychiatric treatment rendered: The patient was admitted to adult behavioral services unit on voluntary status. Code status is full. He was placed on 15-minute checks for his safety. We resumed last known outpatient medications and reinstated glucose monitoring via fingersticks twice a day. As stated above, the patient was calm and in behavioral control. He was pleasant with staff and peers when interactive but was primarily seclusive to room. He was compliant with medications and diabetes management. He was decreased to 30- minute observation. He was eager for discharge especially in order to meet with the new rn case mgr. He reported appreciation for treatment received. He reported improved mood, improved sleep, and denies suicidal ideation at the time of discharge. JEFF SANCHEZ NP [id number]/[facility] #: [id number] [place]
== END 2019-04-04 11:10 | disposition home or self-care (01) | DRG 750 ==
LOC: ED 12:37 → BSU 13:41
PROVIDERS: ADMIT Psychiatry & Neurology Psychiatry; ATTEND Psychiatry & Neurology Psychiatry
DX: F25.1 Schizoaffective disorder, depressive type (principal); R45.851 Suicidal ideations; Z68.41 Body mass index [BMI] 40.0-44.9, adult; I48.92 Unspecified atrial flutter; E66.01 Morbid (severe) obesity due to excess calories; E11.9 Type 2 diabetes mellitus without complications; G47.30 Sleep apnea, unspecified; E78.00 Pure hypercholesterolemia, unspecified; E78.5 Hyperlipidemia, unspecified; E03.9 Hypothyroidism, unspecified; J30.81 Allergic rhinitis due to animal (cat) (dog) hair and dander; Z79.01 Long term (current) use of anticoagulants; Z79.84 Long term (current) use of oral hypoglycemic drugs; Z79.4 Long term (current) use of insulin; Z79.899 Other long term (current) drug therapy
CPT/HCPCS: 36415; 80053; 80061; 80320; 80329; 82947; 83036; 83721; 85025; 94660; 99222; 99232; 99284; A9270-GY; G0480

== ENCOUNTER 2019-11-07 11:27 | Inpatient (IN) ==
[2019-11-07 12:48] LABS: ABS Basophils 0.1 10^3/ul (0-0.2); ABS Eosinophils 0.2 10^3/ul (0-0.6); ABS Lymphocytes 2.2 10^3/ul (1.0-4.8); ABS Monocytes 0.4 10^3/ul (0-0.8); ABS Neutrophils 5.6 10^3/ul (1.5-7.7); Eosinophil % 2.5 %; Hematocrit 48 % (42-52); Hemoglobin 17.2 g/dL (14.0-18.0); Lymphocyte % 25.9 %; Mean Corpuscular HGB Conc 36 g/dL (31-36); Mean Corpuscular Hemoglobin 33 pg (27-31); Mean Corpuscular Volume 92 fL (80-94); Mean Platelet Volume 7.5 fL (7.4-10.4); Nucleated Red Blood Cells % 0.1; Platelet Count 200 10^3/uL (150-450); Red Blood Count 5.18 10^6 /uL (4.18-5.48); Red Cell Distribution Width 13 % (10-15); White Blood Count 8.4 10^3/uL (3.5-10.8)
[2019-11-07 13:24] LABS: ALT 35 U/L (7-52); AST 31 U/L (13-39); Albumin 4.7 g/dL (3.2-5.2); Albumin/Globulin Ratio 1.5 (1-3); Alkaline Phosphatase 70 U/L (34-104); Anion Gap 10 mmol/L (2-11); Blood Urea Nitrogen 13 mg/dL (6-24); CO2 Carbon Dioxide 20 mmol/L (22-32); Calcium 9.1 mg/dL (8.6-10.3); Chloride 102 mmol/L (101-111); EGFR African American 156.7 (>60); EGFR Non-African American 129.5 (>60); Globulin 3.2 g/dL (2-4); Glucose 285 mg/dL (70-100); Potassium 4.1 mmol/L (3.5-5.0); Sodium 132 mmol/L (135-145); Total Protein 7.9 g/dL (6.4-8.9)
[2019-11-07 13:34] LABS: TSH Ultra Thyroid Stim Horm 3.13 mcIU/mL (0.34-5.60)
[2019-11-07 14:03] LABS: Acetaminophen < 15 mcg/mL; Alcohol, S < 10 mg/dL (<10); Salicylate < 2.50 mg/dL (<30)
[2019-11-07] MEDS ORDERED: Al Hydrox/Mg Hydrox/Simet LIQ 30 ML UDC PO PRN (14:18)
[2019-11-08 08:41] LABS: HDL Cholesterol 29.3 mg/dL
[2019-11-08] MEDS: Insulin GLARGINE 100 un/ml 10 ml VIAL SUBCUT SCH (08:53)
[2019-11-08] MEDS: Vitamin THERAPEUTIC TAB PO SCH (08:57)
[2019-11-08] MEDS ORDERED: Dextrose 50% Syringe 50 ml 25 GM/50 ML SYRINGE IV PUSH PRN (12:30)
[2019-11-09] MEDS: Vitamin THERAPEUTIC TAB PO SCH (08:32)
[2019-11-09] MEDS: Insulin GLARGINE 100 un/ml 10 ml VIAL SUBCUT SCH (08:49)
[2019-11-09 13:17] LABS: Urine Benzodiazepine Screen None Detected (None Detect); Urine Cannabinoids Screen None Detected (None Detect); Urine Opiates Screen None Detected (None Detect)
[2019-11-09 14:55] LABS: Urine Appearance Cloudy; Urine Color Yellow; Urine Specific Gravity 1.025 (1.010-1.030)
[2019-11-09 15:03] LABS: Urine Blood Negative (Negative); Urine Ketones 1+ (Negative); Urine Nitrite Negative (Negative); Urine Protein 1+(30 mg/dL) (Negative); Urine Urobilinogen Negative (Negative)
[2019-11-09 15:04] LABS: Urine Bilirubin Negative (Negative); Urine Glucose 3+(>=500 mg/dL) (Negative)
[2019-11-09] MEDS ORDERED: Loperamide LIQ 2 MG/15 ML UDC PO PRN (15:10)
[2019-11-10] MEDS: Vitamin THERAPEUTIC TAB PO SCH (09:10)
[2019-11-10] MEDS: Insulin GLARGINE 100 un/ml 10 ml VIAL SUBCUT SCH (09:11)
[2019-11-11] MEDS: Vitamin THERAPEUTIC TAB PO SCH (08:37)
[2019-11-11] MEDS: Insulin GLARGINE 100 un/ml 10 ml VIAL SUBCUT SCH (08:45)
[2019-11-11 08:46] VITALS: BP 134/73
== END 2019-11-11 11:32 | disposition home or self-care (01) | DRG 750 ==
LOC: ED 11:27 → BSU 16:51
PROVIDERS: ADMIT Psychiatry & Neurology Psychiatry; ATTEND Psychiatry & Neurology Psychiatry

== ENCOUNTER 2020-07-28 20:30 | Inpatient (IN) ==
[2020-07-28 21:48] LABS: ABS Eosinophils 0.1 10^3/ul (0-0.6); ABS Lymphocytes 2.6 10^3/ul (1.0-4.8); ABS Monocytes 0.6 10^3/ul (0-0.8); ABS Neutrophils 7.9 10^3/ul (1.5-7.7); Eosinophil % 1.3 %; Hematocrit 47 % (42-52); Hemoglobin 16.6 g/dL (14.0-18.0); Mean Corpuscular HGB Conc 35 g/dL (31-36); Mean Corpuscular Hemoglobin 36 pg (27-31); Mean Corpuscular Volume 102 fL (80-94); Mean Platelet Volume 7.9 fL (7.4-10.4); Nucleated Red Blood Cells % 0.1; Platelet Count 286 10^3/uL (150-450); Red Blood Count 4.63 10^6 /uL (4.18-5.48); Red Cell Distribution Width 13 % (10-15); White Blood Count 11.3 10^3/uL (3.5-10.8)
[2020-07-28 22:05] LABS: ALT 57 U/L (7-52); AST 100 U/L (13-39); Acetaminophen < 15 mcg/mL; Albumin 4.5 g/dL (3.2-5.2); Albumin/Globulin Ratio 1.4 (1-3); Alcohol, S 279 mg/dL (<10); Alkaline Phosphatase 70 U/L (35-149); Anion Gap 17 mmol/L (2-11); Blood Urea Nitrogen 12 mg/dL (6-24); CO2 Carbon Dioxide 16 mmol/L (22-32); Calcium 8.8 mg/dL (8.6-10.3); Chloride 101 mmol/L (101-111); EGFR African American 96.1 (>60); EGFR Non-African American 79.4 (>60); Globulin 3.2 g/dL (2-4); Glucose 357 mg/dL (70-100); Potassium 3.9 mmol/L (3.5-5.0); Salicylate < 2.50 mg/dL (<30); Sodium 134 mmol/L (135-145); Total Protein 7.7 g/dL (6.4-8.9)
[2020-07-28 22:20] LABS: TSH Ultra Thyroid Stim Horm 2.84 mcIU/mL (0.34-5.60)
[2020-07-28] MEDS ORDERED: Lorazepam PYXIS KEY PRN (23:01)
[2020-07-28] MEDS ORDERED: Haloperidol 5 mg/ml SDV IV/IM 5 MG/ML AMP IM ONE (23:01)
[2020-07-28] MEDS ORDERED: diPHENhydraMINE IV 50 MG/ML 1 ml VIAL (BENADRYL) IM ONE (23:01)
[2020-07-28] MEDS ORDERED: LORazepam 2 mg VIAL 1 ml IM ONE (23:01)
[2020-07-29 12:17] LABS: Urine Benzodiazepine Screen None Detected (None Detect); Urine Cannabinoids Screen Presumptive Positive (None Detect); Urine Opiates Screen None Detected (None Detect)
[2020-07-29] MEDS ORDERED: Dextrose 50% Syringe 50 ml 25 GM/50 ML SYRINGE IV PUSH PRN (14:45)
[2020-07-29] MEDS ORDERED: Al Hydrox/Mg Hydrox/Simet LIQ 30 ML UDC PO PRN (15:50)
[2020-07-29] MEDS ORDERED: LORazepam IM 0-6 mg for WAM protocol IM SCH (16:00)
[2020-07-29] MEDS ORDERED: LORazepam PO 0-6 for WAM protocol PO SCH (16:00)
[2020-07-30 08:47] LABS: ABS Eosinophils 0.2 10^3/ul (0-0.6); ABS Monocytes 0.4 10^3/ul (0-0.8); ABS Neutrophils 3.7 10^3/ul (1.5-7.7); Hematocrit 43 % (42-52); Hemoglobin 14.9 g/dL (14.0-18.0); Mean Corpuscular HGB Conc 35 g/dL (31-36); Mean Corpuscular Hemoglobin 36 pg (27-31); Mean Corpuscular Volume 103 fL (80-94); Mean Platelet Volume 7.8 fL (7.4-10.4); Nucleated Red Blood Cells % 0.1; Platelet Count 196 10^3/uL (150-450); Red Cell Distribution Width 13 % (10-15); White Blood Count 6.3 10^3/uL (3.5-10.8)
[2020-07-30] MEDS: Vitamin THERAPEUTIC TAB PO SCH (08:53)
[2020-07-30 09:07] LABS: Albumin/Globulin Ratio 1.4 (1-3); Calcium 9.2 mg/dL (8.6-10.3); EGFR African American 164.8 (>60); EGFR Non-African American 136.2 (>60); Globulin 2.8 g/dL (2-4); Potassium 3.8 mmol/L (3.5-5.0); Total Bilirubin 1.8 mg/dL (0.2-1.0); Total Protein 6.8 g/dL (6.4-8.9)
[2020-07-30] MEDS: Benzocaine (DENTAL) 10% TOP.GEL TOPICAL PRN ×2 (10:08→20:34)
[2020-07-30] MEDS ORDERED: COVID-19 VACCINE, AD26(JANSSEN)/PF 0.5 ML IM ONE (14:30)
[2020-07-30] MEDS ORDERED: Insulin GLARGINE 100 un/ml 10 ml VIAL SUBCUT SCH (21:00)
[2020-07-31 08:17] LABS: HDL Cholesterol 33.1 mg/dL
[2020-07-31] MEDS: Vitamin THERAPEUTIC TAB PO SCH (08:21)
[2020-07-31] MEDS ORDERED: Insulin GLARGINE 100 un/ml 10 ml VIAL SUBCUT SCH (21:00)
[2020-08-01 08:02] VITALS: BP 149/77
[2020-08-01] MEDS: Benzocaine (DENTAL) 10% TOP.GEL TOPICAL PRN (08:12)
[2020-08-01] MEDS: Vitamin THERAPEUTIC TAB PO SCH (08:15)
== END 2020-08-01 10:20 | disposition home or self-care (01) ==
LOC: ED 20:30 → BSU 07-29 08:10
PROVIDERS: ADMIT Psychiatry & Neurology Psychiatry; ATTEND Psychiatry & Neurology Psychiatry

== ENCOUNTER 2022-08-07 02:52 | Inpatient (IN) ==
[2022-08-07 04:25] LABS: ABS Basophils 0.1 10^3/uL (0.0-0.1); ABS Eosinophils 0.1 10^3/uL (0.0-0.5); ABS Lymphocytes 2.4 10^3/uL (1.0-4.8); ABS Monocytes 0.4 10^3/uL (0.0-1.1); ABS Neutrophils 4.2 10^3/uL (1.5-7.6); ABS Nucleated RBC 0.01 10^3/ul; Eosinophil % 1.8 %; Hematocrit 45.5 % (38-53); Hemoglobin 16.2 g/dL (13.2-16.3); Lymphocyte % 33.9 %; Mean Corpuscular Hemoglobin 35.3 pg (27-33); Mean Corpuscular Hgb Conc 35.6 g/dL (31-36); Mean Corpuscular Volume 99.3 fL (80-97); Mean Platelet Volume 6.8 fL (7.5-11.2); Nucleated Red Blood Cells % 0.1 /100 WBC (0.0-0.4); Platelet Count 250 10^3/uL (150-450); Red Blood Count 4.58 10^6/uL (4.06-5.63); Red Cell Distribution Width 12.9 % (12-17); White Blood Count 7.2 10^3/uL (3.6-10.2)
[2022-08-07] MEDS ORDERED: Haloperidol 5 mg/ml SDV IV/IM 5 MG/ML AMP IM ONE (04:35)
[2022-08-07 04:41] LABS: ALT 27 U/L (7-52); AST 29 U/L (13-39); Albumin 4.4 g/dL (3.2-5.2); Albumin/Globulin Ratio 1.5 (1-3); Alkaline Phosphatase 60 U/L (35-149); Anion Gap 19 mmol/L (2-16); Blood Urea Nitrogen 14 mg/dL (6-24); CO2 Carbon Dioxide 18 mmol/L (22-32); Calcium 9.4 mg/dL (8.6-10.3); Chloride 104 mmol/L (101-111); Creatinine, Serum 0.76 mg/dL (0.67-1.17); Glucose 231 mg/dL (70-100); Potassium 3.9 mmol/L (3.5-5.0); Sodium 141 mmol/L (135-145); Total Protein 7.4 g/dL (6.4-8.9); eGFR CKD-EPI 106.8 (>60)
[2022-08-07 05:10] LABS: Acetaminophen < 15 mcg/mL; Alcohol, S 183 mg/dL (<13); Salicylate < 2.50 mg/dL (<30)
[2022-08-07 05:23] LABS: TSH Ultra Thyroid Stim Horm 2.01 mcIU/mL (0.34-5.60)
[2022-08-07] MEDS ORDERED: Al Hydrox/Mg Hydrox/Simet LIQ 30 ML UDC PO PRN (10:56)
[2022-08-07] MEDS ORDERED: Dextrose 50% Syringe 50 ml 25 GM/50 ML SYRINGE IV PUSH PRN (10:57)
[2022-08-07 22:44] VITALS: BP 142/71
[2022-08-08] MEDS ORDERED: Insulin GLARGINE 100 un/ml 10 ml VIAL SUBCUT SCH (09:00)
[2022-08-08] MEDS ORDERED: Multivitamins/Minerals TAB PO SCH (09:00)
== END 2022-08-08 13:25 | disposition home or self-care (01) | DRG 775 ==
LOC: ED 02:52 → EDHOLD 10:56 → BSU 12:19
PROVIDERS: ADMIT Psychiatry & Neurology Psychiatry; ATTEND Psychiatry & Neurology Psychiatry

== ENCOUNTER 2024-02-02 18:42 | Inpatient (IN) ==
[2024-02-02 19:53] LABS: ABS Basophils 0.1 10^3/uL (0.0-0.1); ABS Eosinophils 0.3 10^3/uL (0.0-0.5); ABS Lymphocytes 2.6 10^3/uL (1.0-4.8); ABS Monocytes 0.6 10^3/uL (0.0-1.1); ABS Neutrophils 5.7 10^3/uL (1.5-7.6); ABS Nucleated RBC 0.01 10^3/ul; Eosinophil % 3.5 %; Hematocrit 47.1 % (38-53); Hemoglobin 16.8 g/dL (13.2-16.3); Lymphocyte % 27.6 %; Mean Corpuscular Hemoglobin 34.4 pg (27-33); Mean Corpuscular Hgb Conc 35.6 g/dL (31-36); Mean Corpuscular Volume 96.7 fL (80-97); Mean Platelet Volume 7.2 fL (7.5-11.2); Nucleated Red Blood Cells % 0.1 %/100WBC (0.0-0.8); Platelet Count 241 10^3/uL (150-450); Red Blood Count 4.87 10^6/uL (4.06-5.63); Red Cell Distribution Width 13.1 % (12-17); White Blood Count 9.4 10^3/uL (3.6-10.2)
[2024-02-02 20:44] LABS: ALT 30 U/L (7-52); AST 32 U/L (13-39); Acetaminophen < 15 mcg/mL; Albumin 4.4 g/dL (3.5-5.7); Albumin/Globulin Ratio 1.6 (1-3); Alcohol, S < 13 mg/dL (<13); Alkaline Phosphatase 59 U/L (35-149); Anion Gap 11 mmol/L (2-16); Blood Urea Nitrogen 15 mg/dL (6-24); CO2 Carbon Dioxide 23 mmol/L (22-32); Calcium 9.3 mg/dL (8.6-10.3); Chloride 100 mmol/L (101-111); Creatinine, Serum 0.81 mg/dL (0.67-1.17); Globulin 2.8 g/dL (2-4); Glucose 200 mg/dL (70-100); Salicylate < 2.50 mg/dL (<30); Sodium 134 mmol/L (135-145); Total Bilirubin 0.9 mg/dL (0.2-1.0); Total Protein 7.2 g/dL (6.4-8.9); eGFR CKD-EPI 104.1 (>60)
[2024-02-02 20:59] LABS: TSH Ultra Thyroid Stim Horm 4.82 mcIU/mL (0.34-5.60)
[2024-02-02] MEDS ORDERED: Al Hydrox/Mg Hydrox/Simet LIQ 30 ML UDC PO PRN (22:25)
[2024-02-02 23:08] LABS: Urine Benzodiazepine Screen None Detected (None Detect); Urine Cannabinoids Screen None Detected (None Detect); Urine Opiates Screen None Detected (None Detect)
[2024-02-02 23:21] LABS: Urine Appearance Clear; Urine Bilirubin Negative (Negative); Urine Blood Negative (Negative); Urine Color Light-Yellow; Urine Glucose 4+ (>=1000 mg/dL) (Negative); Urine Ketones Negative (Negative); Urine Nitrite Negative (Negative); Urine Protein Negative (Negative); Urine Urobilinogen Negative (Negative)
[2024-02-03 08:13] LABS: HDL Cholesterol 33.4 mg/dL
[2024-02-03] MEDS: Vitamin THERAPEUTIC TAB PO SCH (09:13)
[2024-02-03] MEDS ORDERED: Nicotine GUM 4MG FRUIT FLAVOR PO PRN (12:34)
[2024-02-04] MEDS: Clotrimazole 1% CREAM 30 gm TOPICAL SCH (08:50)
[2024-02-04] MEDS: Polyethylene Glycol 3350 17 GM PACKET PO SCH (14:43)
[2024-02-04] MEDS: Polyethylene Glycol 3350 17 GM PACKET ONE (15:26)
[2024-02-08 09:44] VITALS: BP 141/80
== END 2024-02-08 13:30 | disposition home or self-care (01) | DRG 775 ==
LOC: ED 18:42 → EDHOLD 22:28 → BSU 22:34
PROVIDERS: ADMIT Hospitalist; ATTEND Psychiatry & Neurology Psychiatry